=== PATIENT | male | born 1965 | race Hispanic/Latino ===

== ENCOUNTER 2017-07-20 22:08 | Emergency (ER) | payer MEDICARE | END 2017-07-20 23:49 | disposition home or self-care (01) | LOC: EDH 22:08 | DX: L97.529 Non-pressure chronic ulcer of other part of left foot with unspecified severity (principal); E08.621 Diabetes mellitus due to underlying condition with foot ulcer; Z88.0 Allergy status to penicillin; E78.5 Hyperlipidemia, unspecified; I10 Essential (primary) hypertension; Z72.0 Tobacco use; Z79.4 Long term (current) use of insulin | CPT/HCPCS: 73660 ==

== ENCOUNTER 2020-01-21 01:35 | Emergency (ER) | payer MEDICARE ==
[2020-01-21 01:52] LABS: APPEARANCE,URINE Cloudy (CLEAR); BILIRUBIN,URINE Negative (NEGATIVE); COLOR,URINE Yellow (YELLOW); GLUCOSE, URINE (UA) >=1000 mg/dL (NEGATIVE); KETONES,URINE Negative (NEGATIVE); LEUKOCYTE ESTERASE ,URINE Large (NEGATIVE); NITRATE,URINE Negative (NEGATIVE); OCCULT BLOOD,URINE Small (NEGATIVE); PROTEIN,URINE POS 2+ mg/dL (NEGATIVE); UROBILINOGEN,URINE 0.2 mg/dL (0.2-1.0)
[2020-01-21 02:05] LABS: BACTERIA,URINE Many /HPF (None Seen); WBC,URINE 26-50 /HPF (0-1)
[2020-01-21 02:06] LABS: SQUAMOUS EPITHELIAL CELL,UR 0-2 /HPF (0-2)
[2020-01-21] MEDS ORDERED: CLINDAMYCIN HCL 150 MG CAP ONE (02:24)
[2020-01-21] MEDS ORDERED: CEPHALEXIN 500 MG CAPSULE ONE (02:33)
== END 2020-01-21 03:22 | disposition home or self-care (01) ==
LOC: EDH 01:35
DX: S90.422A Blister (nonthermal), left great toe, initial encounter (principal); N39.0 Urinary tract infection, site not specified; E13.621 Other specified diabetes mellitus with foot ulcer; E78.5 Hyperlipidemia, unspecified; I10 Essential (primary) hypertension; Z72.0 Tobacco use; Z88.0 Allergy status to penicillin; X58.XXXA Exposure to other specified factors, initial encounter; Y93.89 Activity, other specified; Y92.89 Other specified places as the place of occurrence of the external cause; Y99.8 Other external cause status
CPT/HCPCS: 81001; 82948; 87077; 87088; 87186

== ENCOUNTER 2023-05-26 14:05 | Emergency (ER) | payer MEDICARE ==
[~2023-05-26] VITALS: Ht 172.7 cm; Wt 72.6 kg
[2023-05-26 16:31] LABS: BASOPHILS # (AUTO) 0.05 K/uL (0.00-0.20); BASOPHILS % (AUTO) 0.6 % (0.0-5.0); EOSINOPHILS # (AUTO) 0.19 K/uL (0.00-0.70); EOSINOPHILS % (AUTO) 2.1 % (0.0-8.0); HEMATOCRIT 34.5 % (42-54); IMMATURE GRANULOCYTE ABSOLUTE 0.07 K/uL (0-1); LYMPHOCYTES # (AUTO) 1.9 K/uL (1.0-4.8); LYMPHOCYTES % (AUTO) 21.6 % (21.0-51.0); MEAN CORPUSCULAR HEMOGLOBIN 29.6 pg (27.0-33.0); MEAN CORPUSCULAR HGB CONC 34.2 g/dL (32.0-36.0); MEAN CORPUSCULAR VOLUME 86.7 fL (79-99); MONOCYTES # (AUTO) 0.6 K/uL (0.1-1.0); MONOCYTES % (AUTO) 6.2 % (3.0-13.0); NEUTROPHILS # (AUTO) 6.1 K/uL (1.8-7.7); NEUTROPHILS % (AUTO) 68.7 % (40.0-77.0); PLATELET COUNT (AUTO) 294 K/uL (130-400); RED BLOOD CELL COUNT(AUTO) 3.98 MIL/uL (4.50-6.20); RED CELL DISTRIBUTION WIDTH 13.2 % (11.0-15.5); WHITE BLOOD COUNT (AUTO) 8.9 K/uL (4.8-10.8)
[2023-05-26 16:57] LABS: ALBUMIN 2.7 g/dL (3.5-5.0); CREATININE 2.3 mg/dL (0.5-1.5); POTASSIUM 4.8 mmol/L (3.5-5.1)
[2023-05-26 17:00] LABS: BILIRUBIN,TOTAL 0.2 mg/dL (0.2-1.0); TOTAL PROTEIN, SERUM 6.9 g/dL (6.0-8.3)
[2023-05-26] MEDS: CLINDAMYCIN IVPB 600MG/50ML 50 ML IV STA (17:46)
[2023-05-26] MEDS: INSULIN HUMULIN R 100 UNIT/ML 3ML IV ONE (17:47)
[2023-05-26] MEDS: 0.9%NACL 1000ML 1,000 ML IV ONE (17:47)
[2023-05-26] MEDS ORDERED: CLIN-141 PO (20:02)
[2023-05-26 20:22] VITALS: BP 132/75; PULSE 78; RESP 16; O2SAT 100
== END 2023-05-26 20:30 | disposition home or self-care (01) ==
LOC: EDH 14:05
DX: E11.621 Type 2 diabetes mellitus with foot ulcer (principal); L97.929 Non-pressure chronic ulcer of unspecified part of left lower leg with unspecified severity; E11.65 Type 2 diabetes mellitus with hyperglycemia; I12.9 Hypertensive chronic kidney disease with stage 1 through stage 4 chronic kidney disease, or unspecified chronic kidney disease; E11.22 Type 2 diabetes mellitus with diabetic chronic kidney disease; N18.9 Chronic kidney disease, unspecified; Z88.0 Allergy status to penicillin
CPT/HCPCS: 99284; 96365; 96375; 80053; 85025; 87040 ×2; 82948; 83605; 36415; 73630; J1815; J7030; J3490; 96361; 96374

== ENCOUNTER 2024-05-12 17:25 | Inpatient (IN) | payer MEDICARE ==
[~2024-05-12] VITALS: Ht 172.7 cm; Wt 69.7 kg
[~2024-05-12 17:25] MED LIST: CLIN-141 PO
--- NOTE | 2024-05-12 17:41 | EKG ---
[facility] Test Date: 2024-05-12 Test Time: 17:37:57 Pat Name: CHRISTEL LEONG Department: EDH Room: ED Gender: M Adult School Counselor: [id number] : 1965 Requested By: ARUN CAMPBELL Order Number: [id number] Reading MD: Lesley Fitzgerald Measurements Intervals [place] Rate: 78 P: 57 OR: 189 QRS: 50 QRSD: 82 T: 106 QT: 404 QTc: 461 Interpretive Statements Sinus rhythm Probable left atrial enlargement Probable LVH with secondary repol abnrm Anterior ST elevation, probably due to LVH No previous ECG available for comparison Electronically Signed On 05-13-2024 03:52:40 HEALTH NURSE by Lesley Fitzgerald Please click the below link to view image of tracing.
[2024-05-12 18:27] LABS: BASOPHILS # (AUTO) 0.06 K/uL (0.00-0.20); BASOPHILS % (AUTO) 0.8 % (0.0-5.0); EOSINOPHILS # (AUTO) 0.39 K/uL (0.00-0.70); HEMATOCRIT 29.7 % (42-54); IMMATURE GRANULOCYTE ABSOLUTE 0.03 K/uL (0-1); LYMPHOCYTES # (AUTO) 2.3 K/uL (1.0-4.8); MEAN CORPUSCULAR HGB CONC 32.7 g/dL (32.0-36.0); MONOCYTES # (AUTO) 0.7 K/uL (0.1-1.0); MONOCYTES % (AUTO) 9.5 % (3.0-13.0); NEUTROPHILS # (AUTO) 4.2 K/uL (1.8-7.7); NEUTROPHILS % (AUTO) 54.3 % (40.0-77.0); PLATELET COUNT (AUTO) 261 K/uL (130-400); RED BLOOD CELL COUNT(AUTO) 3.23 MIL/uL (4.50-6.20); RED CELL DISTRIBUTION WIDTH 13.4 % (11.0-15.5); WHITE BLOOD COUNT (AUTO) 7.8 K/uL (4.8-10.8)
[2024-05-12 18:37] LABS: CREATININE 3.2 mg/dL (0.5-1.3); INR <= 0.93 (0.85-1.15); POTASSIUM 4.4 mmol/L (3.5-5.1); PROTHROMBIN TIME 9.8 SEC (9.6-11.6)
[2024-05-12 18:38] LABS: PARTIAL THROMBOPLASTIN TIME 26.4 SEC (26.3-35.5)
--- NOTE | 2024-05-12 18:40 | HMCIMG ---
INDICATION: cp TECHNIQUE: CHEST 1VW COMPARISON: None FINDINGS AND IMPRESSION: Bilateral airspace consolidation suggesting vascular congestion/edema versus pneumonia. Cardiomegaly is seen Mild degenerative changes of the spine. The visualized upper abdomen appears unremarkable.
[2024-05-12 18:42] LABS: MAGNESIUM 2.3 mg/dL (1.80-2.40)
[2024-05-12 18:46] LABS: B-TYPE NATRIURETIC PEPTIDE 1210 pg/mL (0-100)
--- NOTE | 2024-05-12 19:46 | ERN ---
General Chief Complaint: Chest Pain Stated Complaint: CHEST PAIN Time Seen by MD: 17:26 Time Seen by Midlevel: 17:26 Source: patient History of Present Illness Initial Comments Patient is a 58-year-old male with a past medical history of hypertension, type 2 diabetes, and coronary artery disease presenting to the emergency department with chest pain and shortness for breath that have progressively worsened over the last three days. Patient reports having a three stents placed back in February of 2024 in [place]. He was a follow up with pricing analyst in three days. Today he reports an increase in shortness for breath. Denies any fever, chills, or any other symptoms at this time. Patient was previously taking Bumex but was told by the pricing analyst to stop this medication. Patient is not currently taking any diuretics. Allergies: Coded Allergies: Penicillins (Unverified Allergy, Unknown, 05/26/23) Home Meds Active Scripts Clindamycin HCl (Clindamycin HCl) 300 Mg Capsule, 1 CAP PO QID for 10 Days, #40 CAP 0 Refills Prov:NADIA PICKERING TIP PRINTER 05/26/23 Past Medical History Past Medical History: Diabetes-Type II, High Cholesterol, Heart Disease, Hyper tension Past Surgical History: Other Surgical History Other: HIP, BACK, AND L LEG SX, TESTICLE RT, LBKA, HEART STENTS ROS Dictation CONSTITUTIONAL: Negative except for HPI HEAD/FACE: Negative except for HPI EENT: Negative except for HPI RESPIRATORY: Negative except for HPI GASTROINTESTINAL/ABDOMINAL: Negative except for HPI GENITOURINARY: Negative except for HPI MUSCULOSKELETAL: Negative except for HPI INTEGUMENTARY: Negative except for HPI NEUROLOGICAL/PSYCH: Negative except for HPI HEMATOLOGIC/LYMPHATIC: Negative except for HPI All Systems Negative, Except as noted above. 13 point review of systems assessed and all negative except for above. Physical Exam Physical Exam Dictation Vital Signs reviewed General Appearance: Alert, oriented x 3, no acute distress, well developed, nourished. Head and Face: non-traumatic. Eyes: PERRL, pink conjunctivas, eyelid no trauma, anterior chamber with arcus senilis. Ears: Pinnas intact and no signs of trauma or erythema ear canals clear and no discharge TM no erythema Nose: No discharge, no bleeding. Oropharynx: Mouth normal, tongue pink, pharynx clear,no erythema, tonsils no exudates, no abscesses noted, mucous membrane moist Neck: Supple, non-tender, no thyromegaly, no masses, no JVD, no bruits Breast:Deferred Chest:No tenderness, no crepitus, no paradoxical movement, no retractions Lungs:Clear, well-ventilated, symmetric, no rales, no wheezing, no rhonchi, no stridor, good breath sounds bilaterally Heart: Regular rate, regular rhythm, no murmur, no gallops Vascular: 1+ pitting edema to right lower extremity Abdomen: Soft, positive bowel sounds, nondistended, no guarding, nontender, no rebound, no masses no hepatomegaly, no splenomegaly, no Barrientos's sign, no hernias. Rectal: Deferred Genital: Deferred Neurological: Normal speech, motor function intact, sensory function intact Musculoskeletal: Neck nontender, full range of motion, back nontender, full ra nge of motion, Extremities: Left BKA, Skin: Color pink, dry, no turgor, no rash, no lacerations, no abrasions, no contusions. Lymphatic: Deferred Results Laboratory and Microbiology Lab and Micro Result Laboratory Tests Test 05/12/24 18:05 05/12/24 18:20 White Blood Count 7.8 K/uL (4.8-10.8) Red Blood Count 3.23 MIL/uL (4.50-6.20) L Hemoglobin 9.7 g/dL (14.0-18.0) L Hematocrit 29.7 % (42-54) L Mean Corpuscular Volume 92.0 fL (79-99) Mean Corpuscular Hemoglobin 30.0 pg (27.0-33.0) Mean Corpuscular Hemoglobin Concent 32.7 g/dL (32.0-36.0) Red Cell Distribution Width 13.4 % (11.0-15.5) Platelet Count 261 K/uL (130-400) Mean Platelet Volume 10.0 fL (7.5-10.5) Immature Granulocyte % (Auto) 0.4 % (0-1) Neutrophils (%) (Auto) 54.3 % (40.0-77.0) Lymphocytes (%) (Auto) 30.0 % (21.0-51.0) Monocytes (%) (Auto) 9.5 % (3.0-13.0) Eosinophils (%) (Auto) 5.0 % (0.0-8.0) Basophils (%) (Auto) 0.8 % (0.0-5.0) Neutrophils # (Auto) 4.2 K/uL (1.8-7.7) Lymphocytes # (Auto) 2.3 K/uL (1.0-4.8) Monocytes # (Auto) 0.7 K/uL (0.1-1.0) Eosinophils # (Auto) 0.39 K/uL (0.00-0.70) Basophils # (Auto) 0.06 K/uL (0.00-0.20) Absolute Immature Granulocyte (auto 0.03 K/uL (0-1) Nucleated Red Blood Cells 0.0 % (0.0-0.19) Prothrombin Time 9.8 SEC (9.6-11.6) Prothromb Time International Ratio <= 0.93 (0.85-1.15) Activated Partial Thromboplast Time 26.4 SEC (26.3-35.5) Sodium Level 139 mmol/L (136-145) Potassium Level 4.4 mmol/L (3.5-5.1) Chloride Level 107 mmol/L (101-111) Carbon Dioxide Level 26 mmol/L (21-32) Blood Urea Nitrogen 42 mg/dL (7-18) H Creatinine 3.2 mg/dL (0.5-1.3) H Glomerular Filtration Rate Calc 21 mL/min (>90) Random Glucose 169 mg/dL (70-105) H Total Calcium 8.3 mg/dL (8.5-10.1) L Magnesium Level 2.30 mg/dL (1.80-2.40) Total Creatine Kinase 216 U/L (21-232) Troponin I High Sensitivity 36 ng/L (4-75) B-Type Natriuretic Peptide 1210 pg/mL (0-100) H Troponin I < 0.05 ng/mL (0.00-0.05) Labs Reviewed?: Yes MDM MDM: Differential diagnosis: ACS, pulmonary edema, CHF exacerbation Rationale: Tests considered and ordered secondary to shared decision making include: Previous outside records reviewed: Old ER visits. Risk of complication and/or morbidity or mortality of patient management: None Medications-Per medication reconciliation Need for hospitalization: Patient does meet criteria for hospitalization. Need for emergency major/minor surgery: No There are no social concerns with this patient. Prescription drug management Prescriptions will include symptomatic care Patient's prior external medical records from other ER visits were reviewed by me as indicated. Prior testing and results from previous visits were reviewed. Prior tests were taken into account with medical decision making and resource utilization, independent historian/historians were used to obtain complete medical history. I independently interpreted the test that were performed, results were reviewed by me and considered findings on radiology if ordered. Medical management and examination interpretation discussions were had by me wit h other qualified healthcare professionals as indicated for the patient's care. ED Course Orders Procedure Category Date Status Time 12 Lead Ekg Tracing- EKG 05/12/24 Complete Technical 17:33 B-Type Natriuretic LAB 05/12/24 Complete Peptide 17:33 Cbc With Differential LAB 05/12/24 Complete 17:33 Basic Metabolic Panel LAB 05/12/24 Complete 17:33 Magnesium LAB 05/12/24 Complete 17:33 Troponin I High LAB 05/12/24 Complete Sensitivity 17:33 Troponin Poc Order LAB 05/12/24 Complete Only 17:33 Pt And Ptt LAB 05/12/24 Complete 17:33 Chest 1vw RAD 05/12/24 Resulted 17:33 Creatine Kinase, Total LAB 05/12/24 Complete 17:33 Furosemide 40mg Vial PHA 05/12/24 In Process (Lasix 40mg Vial) 20:00 Current Medications Medications (Trade) Dose Ordered Sig/[place] Route PRN Reason Start Time Stop Time Status Last Admin Dose Admin Furosemide (LASix 40MG VIAL) 40 mg ONCE ONCE IV 05/12/24 20:00 05/12/24 20:01 Vital Signs Date Time Temp Pulse Resp B/P (MAP) Pulse Ox O2 Delivery O2 Flow Rate FiO2 05/12/24 19:16 80 18 177/90 96 Room Air* 0 21 05/12/24 17:36 98.2 78 16 172/87 98 Room Air 0 DX & DISP Disposition: Inpatient Decision to Admit Date: May 12, 2024 Decision to Admit Time: 19:46 Departure Impression: Primary Impression: CHF exacerbation Condition: Stable Referrals: NONE (PCP) Time of Disposition: 19:46 I have reviewed the case, and I agree with, Diagnosis and Plan I performed the substantive portion of the visit. I have reviewed and personally made and approve the management plan that is documented in the note by myself or the ALIZA. I acknowledge for responsibility for the patient's management plan. ARUN CAMPBELL May 12, 2024 19:46
[2024-05-12] MEDS: NITROGLYCERIN 1GM OINT 1 INCH/1GM TD ONE (20:42)
[2024-05-12] MEDS: morPHINE 2 MG SYG IVP ONE (20:42)
[2024-05-12] MEDS: furoSEMIDE 40MG VIAL IV ONE (20:42)
[2024-05-12] MEDS ORDERED: PoTASSium chloRIDE 10MEQ/100ML 100 ML IV PRN (21:00)
[2024-05-12] MEDS: INSULIN humuLIN R 100 UNIT/ML 3ML SQ SCH (21:00)
[2024-05-12] MEDS ORDERED: GLUCAGON 1MG KIT 1 MG ML IM PRN (21:00)
[2024-05-12] MEDS ORDERED: PoTASSium chl 10% ELIXIR 20MEQ 20 MEQ/15 ML UDCUP PO PRN (21:00)
[2024-05-12] MEDS: NITROGLYCERIN 1GM OINT 1 INCH/1GM TD SCH (21:00)
[2024-05-12] MEDS ORDERED: PoTASSium chloRIDE 20MEQ ER 20 MEQ ERTAB PO PRN (21:00)
[2024-05-12] MEDS ORDERED: ondanSETRON 4MG INJ IV PRN (21:00)
[2024-05-12] MEDS ORDERED: MAGNESIUM 2GM PREMIX 50ML 50 ML IV PRN (21:00)
[2024-05-12] MEDS ORDERED: acetaMINOPHEN 325 MG TAB PO PRN (21:00)
--- NOTE | 2024-05-12 21:10 | HP ---
[facility] Date of Service: May 12, 2024 Time of Service: 20:46 PCP: HISTORY OF PRESENT ILLNESS: This is a 58-year-old male with past medical history of hypertension, type 2 diabetes, coronary artery disease with cardiac stent x3 and hyperlipidemia who presents to the ED for complaints of chest pain and shortness of breath. Patient reports he has been having shortness of breath for the past one week and he has been sleeping at night in the recliner because he feels drowning he lies down in bed and reports he sometimes woke up very short of breath. Patient states that he started having on and off midsternal chest pain three days ago and he is taking Nitrostat sublingual. Today he was not able to take all his medication because he has not feeling good he said so he decided to come to the ED for evaluation. Patient states he had a heart attack last February of 2024 and he had cardiac stent x3 done @ [facility] in [place].Patient reports he has not seen any manager it security here. Patient states he drinks 10 bottled water (500 ml ) per day Patient also states he drinks 2 beer per day and uses Marijuana for pain control and last use was 5 days ago he said. Seen and examined patient in the ER awake alert and coherent appears uncomfortable continue to complain of chest pain 8/10 pain level and shortness of breaths. Patient denies fever, chills, cough, palpitation, nausea, vomiting and diarrhea. Latest vital signs temperature 98.2, heart rate 80, blood pressure 181/86 saturation 96% on room air. Labs hemoglobin 9.7, hematocrit 29.7 platelet count 261. BUN 42, creatinine 3.2, GFR 21 glucose 169 total calcium 8.3 potassium 2.3 total CK 216 troponin less than 0.05 troponin high sens 36. Chest x-ray result revealed bilateral airspace consolidation suggesting vascular congestion/edema versus pneumonia. Cardiomegaly is seen. Mild degenerative changes of the spine. The visualized upper abdomen appears unremarkable. ECG result revealed sinus rhythm heart rate 78 with probable left atrial enlargement. Probable left ventricular hypertrophy with secondary repolarization abnormalities. Anterior ST elevation probably due to LVH. While in the ER patient received Lasix 40 mg IV. We will admit patient for further medical management. Addendum : ER primary nurse notified the undersigned patient is having severe chest pain and ECG were taken and no change from initial EKG done in the ER, manager it security and notified regarding patient condition and patient qwill be started on Heparin and Nitroglycerin drip. came and evaluated the patient and will continue to monitor patient at this time.Will upgrade patient to ICU and consult critical care as well, REVIEW OF SYSTEMS CONSTITUTIONAL: Denies fevers, chills, or night sweats. No unintentional weight loss reported. NEUROLOGICAL: Denies headache, amaurosis fugax, motor weakness, sensory deficit, vertigo/spinning sensation, gait abnormalities, or tremors. ENT: No hearing loss, otalgia, otorrhea, rhinitis, rhinorrhea, hoarseness, or sore throat. CARDIOVASCULAR: Positive chest pain, orthopnea and paroxysmal nocturnal dyspnea Denies palpitations, life-threatening arrhythmias, claudication. PULMONARY: Positive shortness of breaths Denies cough, phlegm/sputum, hemoptysis, pleuritic chest pain. SLEEP: Denies morning headaches, daytime somnolence or napping. Denies difficulty falling asleep, staying asleep, waking from sleep. Denies knowledge of snoring. GASTROINTESTINAL: Denies any type of dysphagia to either liquids or solids. Denies nausea, vomiting, pyrosis, early satiety, abdominal pain, diarrhea, constipation, or changes in stool consistency or caliber. Denies coffee-ground emesis, hematemesis, hematochezia, or melanotic stools. GENITOURINARY: Denies frequency, urgency, nocturia, hematuria or incontinence (Storage/Irritative symptoms.) Low urinary stream, straining to void, urinary intermittency or hesitancy, splitting of the voiding stream, terminal dribbling. ENDOCRINOLOGIC: Denies polyuria, polydipsia, polyphagia or heat/cold intolerances. HEMATOLOGIC: Denies thrombophilia/previous clots, or coagulopathy/bleeding dis orders. ONCOLOGIC: Denies personal history of malignancy. DERMATOLOGIC: Denies rashes or pruritus. PSYCHIATRIC: Denies any suicidal or homicidal ideation. Denies hallucinations. PAST MEDICAL HISTORY: [ hypertension, type 2 diabetes, coronary artery disease and hyperlipidemia ] PAST SURGICAL HISTORY: [ Cardiac stent x3 right testicle surgery, back surgery, left femur surgery and left BKA] PAST SOCIAL HISTORY: [ Patient lives with . Patient denies cigarette smoking and cocaine use. Patient admits to drinking two beers per day and occasional use of marijuana] FAMILY HISTORY: [ Noncontributory ] Coded Allergies: Penicillins (Unverified Allergy, Unknown, 05/26/23) PHYSICAL EXAM GENERAL APPEARANCE: The patient is awake, alert, and oriented, in no acute cardiopulmonary distress. NEUROLOGICAL: Cranial nerves II-XII grossly intact. Motor is 5/5 in bilateral upper and lower extremities proximal to distal. No sensory deficits. HEENT: Face is symmetric. Pupils are equal and reactive. Extraocular movements are intact. NECK: Supple. No JVD. No thyromegaly. No submental, submandibular, pre- /postauricular, occipital or supraclavicular lymphadenopathy. CHEST: Normal chest expansion. No Telemetry. LUNGS: Absence of any rales, rhonchi or any wheezing. CARDIOVASCULAR: Regular. S1 and S2 normal. No appreciable rubs, murmurs or gallops. ABDOMEN: Soft, nontender, and nondistended. There is no rebound, voluntary guarding, or rigidity. : Deferred. No Givens. EXTREMITIES: Trace edema to bilateral lower extremities SKIN: No skin breakdown. Vital Sign (Last 24 Hours) 05/12/24 05/12/24 17:36 19:16 Temp 98.2 Pulse 80 Resp 18 B/P (MAP) 177/90 Pulse Ox 96 O2 Delivery Room Air* O2 Flow Rate 0 FiO2 21 LABS: Laboratory: Test 05/12/24 18:20 05/12/24 18:05 Range/Units Troponin I < 0.05 0.00-0.05 ng/mL White Blood Count 7.8 4.8-10.8 K/uL Red Blood Count 3.23 L 4.50-6.20 MIL/uL Hemoglobin 9.7 L 14.0-18.0 g/dL Hematocrit 29.7 L 42-54 % Mean Corpuscular Volume 92.0 79-99 fL Mean Corpuscular Hemoglobin 30.0 27.0-33.0 pg Mean Corpuscular Hemoglobin Concent 32.7 32.0-36.0 g/dL Red Cell Distribution Width 13.4 11.0-15.5 % Platelet Count 261 130-400 K/uL Mean Platelet Volume 10.0 7.5-10.5 fL Immature Granulocyte % (Auto) 0.4 0-1 % Neutrophils (%) (Auto) 54.3 40.0-77.0 % Lymphocytes (%) (Auto) 30.0 21.0-51.0 % Monocytes (%) (Auto) 9.5 3.0-13.0 % Eosinophils (%) (Auto) 5.0 0.0-8.0 % Basophils (%) (Auto) 0.8 0.0-5.0 % Neutrophils # (Auto) 4.2 1.8-7.7 K/uL Lymphocytes # (Auto) 2.3 1.0-4.8 K/uL Monocytes # (Auto) 0.7 0.1-1.0 K/uL Eosinophils # (Auto) 0.39 0.00-0.70 K/uL Basophils # (Auto) 0.06 0.00-0.20 K/uL Absolute Immature Granulocyte (auto 0.03 0-1 K/uL Nucleated Red Blood Cells 0.0 0.0-0.19 % Prothrombin Time 9.8 9.6-11.6 SEC Prothromb Time International Ratio <= 0.93 0.85-1.15 Activated Partial Thromboplast Time 26.4 26.3-35.5 SEC Sodium Level 139 136-145 mmol/L Potassium Level 4.4 3.5-5.1 mmol/L Chloride Level 107 101-111 mmol/L Carbon Dioxide Level 26 21-32 mmol/L Blood Urea Nitrogen 42 H 7-18 mg/dL Creatinine 3.2 H 0.5-1.3 mg/dL Glomerular Filtration Rate Calc 21 >90 mL/min Random Glucose 169 H 70-105 mg/dL Total Calcium 8.3 L 8.5-10.1 mg/dL Magnesium Level 2.30 1.80-2.40 mg/dL Total Creatine Kinase 216 21-232 U/L Troponin I High Sensitivity 36 4-75 ng/L B-Type Natriuretic Peptide 1210 H 0-100 pg/mL DIAGNOSTICS / RADIOLOGY: [ ] ASSESSMENT: Unstable angina POA Acute CHF exacerbation POA Uncontrolled hypertension POA Uncontrolled diabetes POA Acute kidney injury on chronic kidney disease POA Acute anemia on CKD POA Coronary artery disease with cardiac stent x3 POA Hyperlipidemia POA History of Left BKA POA History of back surgery POA PLAN: We will admit patient in PCCU We will start patient on healthy and non dialysis renal diet We will start patient on aspirin 81 mg p.o. daily We will start on atorvastatin 40 mg p.o. daily We will start patient on heparin 5000 subQ b.i.d. for DVT prophylaxis We will start on Famotidine 20 mg p.o. q.48h for GI prophylaxis We will replace electrolytes as needed per protocol We will start on insulin sliding scale AC & HS with hypoglycemia protocol We will add prn medication for fever,pain,cough ,nausea and vomiting We will reconcile home meds once medlist available We will trend troponin Q 6 x 3 We will obtain echocardiogram We will seek Cardiology consultation We will seek Nephrology consultation We will request labs in am Further orders to follow depending on above results Case discussed with attending physician and came up with above treatment and plan of care. ADVANCED CARE PLANNING 1. Which of the following were discussed? Hospice Care - No Therapeutic options - Yes Advance Directives - No Other discussions - 2. Discussed with who? Patient and Melissa Ybarra 3. Voluntary nature of this service was explained to the patient? Yes 4. Amount of time spent - 25 5. Reviewed by Physician? (if this service was performed by NPP) Yes Patient seen and examined by me. Agree with note by OFFICER CAPTAIN SEE ADDITIONAL ORDERS PER CHART DISCUSSED WITH NURSING STAFF MARIBEL REDDP May 12, 2024 21:10
[2024-05-12] MEDS: HEParin 5,000 UNIT VIAL SQ SCH (22:15)
[2024-05-12] MEDS: LAbetaLOL 20MG SYG IV ONE (22:21)
--- NOTE | 2024-05-12 23:26 | NUR ---
PT CARE ASSUMED AT THIS TIME
[2024-05-12] MEDS: hydroMORPHone 0.5 MG SYG (0.5MG/0.5ML) IVP ONE (23:46)
[2024-05-13] VITALS (15 sets, daily range): BP systolic 143–170; BP diastolic 82–103; PULSE 71–77; RESP 9–19; TEMP 98.2; O2SAT 100
[2024-05-13] MEDS: NITROGLYCERIN 1GM OINT 1 INCH/1GM TD SCH (01:30)
--- NOTE | 2024-05-13 03:30 | NUR ---
DIRECTOR CLIENT PAGED AT THIS TIME. PENDING CALL BACK.
--- NOTE | 2024-05-13 03:45 | NUR ---
MACARIO REDD MADE AWARE OF ONSET OF CHEST PAIN AT THIS TIME. EKG TAKEN AT 0329 PROVIDED TO MACARIO REDD. ORDERS GIVEN. TRAMAINE NOTIFIED DR. PITTS AT THIS TIME.
--- NOTE | 2024-05-13 03:51 | NUR ---
SPOKE TO DR. PITTS AT THIS TIME. EKG INFORMATION PROVIDED. PER DR. PITTS NO STEMI SHOWN IN EKG. PT SHOWS NO SIGNS OF DISTRESS AT THIS TIME. PT A&OX4. DENIES SOB. PT REPORTS CHEST PAIN 11/04. REFER TO CHART FOR VS. WAITING FOR DR. PITTS TO ASSESS PT AT BEDSIDE.
[2024-05-13] MEDS: HEParin 25,000 UNITS/250ML D5W 250 ML IV SCH (04:10)
--- NOTE | 2024-05-13 04:10 | NUR ---
DR. PITTS AT BEDSIDE AT THIS TIME. ORDERS GIVEN AND TRANSCRIBED.
[2024-05-13] MEDS: NITROGLYCERIN 50MG/D5W 250ML 250 BOT IV SCH (04:11)
[2024-05-13] MEDS: HEParin 5,000 UNIT VIAL IV ONE (04:11)
[2024-05-13 04:13] LABS: ALBUMIN 2.6 g/dL (3.5-5.0); BILIRUBIN,TOTAL 0.2 mg/dL (0.2-1.0); CREATININE 3.3 mg/dL (0.5-1.3); POTASSIUM 4.1 mmol/L (3.5-5.1); THYROID STIMULATING HORMONE 2.56 uIU/mL (0.36-3.74); TOTAL PROTEIN, SERUM 6.1 g/dL (6.0-8.3)
[2024-05-13] MEDS: cloPIDOgrel 300MG TAB PO ONE (04:38)
--- NOTE | 2024-05-13 04:46 | NUR ---
MACARIO REDD PAGED AT THIS TIME. PENDING CALL BACK.
--- NOTE | 2024-05-13 05:46 | NUR ---
PER CHARGE, ORDERS WERE GIVEN IN PERSON WERE OBTAINED FOR UPGRADE TO ICU AT THIS TIME
--- NOTE | 2024-05-13 05:50 | NUR ---
KRYSTEN SORTO PAGED AT THIS TIME FOR CRITICAL CARE CONSULT
--- NOTE | 2024-05-13 05:54 | NUR ---
[facility] PROFESSIONAL GOLF TOURNAMENT PLAYER NOTIFIED ABOUT CRITICAL CARE CONSULT AT THIS TIME. PER KRYSTEN PROFESSIONAL GOLF TOURNAMENT PLAYER CRITICAL CARE CONSULT INFORMATION WILL BE RELAYED TO DAYSHIFT CRITICAL CARE PROVIDER.
--- NOTE | 2024-05-13 06:23 | NUR ---
PER DR. PITTS VERBAL ORDER GIVEN FOR PAIN MEDICATION AT THIS TIME.
--- NOTE | 2024-05-13 06:35 | EKG ---
[facility] Test Date: 2024-05-13 Test Time: 03:29:59 Pat Name: CHRISTEL LEONG Department: EDHIP Room: ED 02 Gender: M Folder And Notcher: [id number] : 1965 Requested By: MARIBEL REDD Order Number: [id number] Reading MD: Lesley Fitzgerald Measurements Intervals [place] Rate: 76 P: 54 OR: 181 QRS: 24 QRSD: 78 T: 102 QT: 420 QTc: 473 Interpretive Statements Sinus rhythm Probable left atrial enlargement ST and T wave changes could represent ischemia Electronically Signed On 05-13-2024 11:55:27 BALANCE STAFF INSPECTOR by Lesley Fitzgerald Please click the below link to view image of tracing.
[2024-05-13] MEDS: morPHINE 2 MG SYG IVP ONE (06:46)
--- NOTE | 2024-05-13 07:14 | NUR ---
REPORT GIVEN TO YAS GERARDO AT THIS TIME
[2024-05-13 07:22] LABS: BASOPHILS # (AUTO) 0.06 K/uL (0.00-0.20); BASOPHILS % (AUTO) 0.7 % (0.0-5.0); EOSINOPHILS # (AUTO) 0.39 K/uL (0.00-0.70); EOSINOPHILS % (AUTO) 4.3 % (0.0-8.0); HEMATOCRIT 29.1 % (42-54); IMMATURE GRANULOCYTE ABSOLUTE 0.03 K/uL (0-1); LYMPHOCYTES # (AUTO) 3.2 K/uL (1.0-4.8); MEAN CORPUSCULAR HEMOGLOBIN 30.2 pg (27.0-33.0); MEAN CORPUSCULAR HGB CONC 33.3 g/dL (32.0-36.0); MEAN CORPUSCULAR VOLUME 90.7 fL (79-99); MONOCYTES # (AUTO) 0.8 K/uL (0.1-1.0); MONOCYTES % (AUTO) 8.4 % (3.0-13.0); NEUTROPHILS # (AUTO) 4.6 K/uL (1.8-7.7); NEUTROPHILS % (AUTO) 51.3 % (40.0-77.0); PLATELET COUNT (AUTO) 234 K/uL (130-400); RED BLOOD CELL COUNT(AUTO) 3.21 MIL/uL (4.50-6.20); RED CELL DISTRIBUTION WIDTH 13.6 % (11.0-15.5)
[2024-05-13] MEDS: FAMOTIDINE 20MG TAB PO SCH (08:04)
[2024-05-13] MEDS: ASPIRIN 81 MG EC TAB PO SCH (08:04)
--- NOTE | 2024-05-13 08:52 | CONS ---
[facility] CONSULTATION NOTE Date Patient Seen: May 13, 2024 Time of Visit: 08:52 Supervising Physician: Saul Courtney MD Reason for Consultation: [[facility] Primary Care Physician: none Outpatient Specialists: Inpatient Consults: [facility], Cardiology DR Fitzgerald Attending: Enoc Massey MD PROBLEM LIST: Acute on chronic stage II diastolic dysfunction with LVEF of 45-50% POA Multifocal bacterial pneumonia, POA Unstable angina requiring nitroglycerin drip JOSEP on CKD stage 3, POA Chronic Normocytic anemia, POA PVD status post left BKA Hypertension Hyperglycemia in the presence of Type 2 diabetes mellitus A1C 8.0 Hyperlipidemia CAD status post stent placement x3 HPI: This is a chronically ill 58-year-old male with a past medical history of hypertension, type 2 diabetes mellitus, coronary artery disease with cardiac stents x3, hyperlipidemia, severe PVD status post BKA who presented to the emergency department for evaluation of shortness of breaths x1 week. Patient also reported chest pain off and on x3 days in which he asked to take nitroglycerin tablets sublingual with some relief. Patient reports he has concern due to recent NC in February of 2024 and he has had cardiac stent x3 at [facility]. Patient admits to drinking two beers today and occasional marijuana use for pain control. He was admitted by the [facility] [facility] team to the ICU with nitroglycerin drip and we are consulted for critical care management. On assessment patient is awake alert and oriented x3. Reports chest pain has improved currently on nitroglycerin and heparin drip. Blood pressure 166/72 heart rate in the 80s respiratory rate of 20 saturating 96% on room air and afebrile. Patient was given Lasix 40 mg IV on arrival to ED add morphine for pain with relief of chest pain. On laboratory H&H is 9.7/29.1, chemistry with a BUN of 43 creatinine of 3.3 and GFR of 21 glucose 107 mg/dL albumin of 2.6 troponins has been negative x4 LDL cholesterol 128. CT of the chest shows small bilateral pleural effusion seen. Multifocal bilateral patchy ground-glass and airspace consolidation, more pronounced in the bilateral lower lobes consistent with multifocal pneumonia. Bilateral lower extremities negative for DVT. Renal ultrasound had no hydronephrosis. LVEF is 45-50%.Stage II, diastolic dysfunction on 2 D echo. We will continue critical care management and follow cardiology recommendations. PAST MEDICAL HX: see above PAST SURGICAL HX: noncontributory SOCIAL HISTORY: No tobacco, ETOH, or illicit drug use Coded Allergies: Penicillins (Unverified Allergy, Unknown, 05/26/23) REVIEW OF SYSTEMS: 12 point ROS reviewed with patient. Pertinent positives mentioned above. Otherwise negative. PHYSICAL EXAM: GENERAL: alert, weak, awake oriented x 3 HEENT: EOMI, Sclera non icteric, moist mucosa NECK: Supple, no JVD, trachea midline LUNGS: Clear breath sounds bilaterally. No wheezes HEART: Regular rate and rhythm. Normal S1 and S2, without murmurs ABD: Abdomen soft, nontender. Bowel sounds present EXT: No clubbing cyanosis or edema NEURO: Alert and oriented to person, follows commands Vital Signs (last 8hr) Date Time Temp Pulse Resp B/P (MAP) Pulse Ox O2 Delivery O2 Flow Rate FiO2 05/13/24 07:35 79 16 168/94 99 Room Air* 0 21 05/13/24 06:36 78 12 164/89 100 Room Air* 0 21 05/13/24 05:10 84 12 152/85 100 Nasal Cannula* 2 05/13/24 04:15 78 12 153/79 100 Nasal Cannula* 2 05/13/24 04:11 153/79 05/13/24 03:51 76 12 143/78 100 Nasal Cannula* 2 05/13/24 03:30 75 14 153/85 100 Nasal Cannula* 2 05/13/24 01:45 72 13 141/82 99 Nasal Cannula* 2 28 LABS: Hematology Labs: Test 05/13/24 06:55 Range/Units White Blood Count 9.0 4.8-10.8 K/uL Red Blood Count 3.21 L 4.50-6.20 MIL/uL Hemoglobin 9.7 L 14.0-18.0 g/dL Hematocrit 29.1 L 42-54 % Mean Corpuscular Volume 90.7 79-99 fL Mean Corpuscular Hemoglobin 30.2 27.0-33.0 pg Mean Corpuscular Hemoglobin Concent 33.3 32.0-36.0 g/dL Red Cell Distribution Width 13.6 11.0-15.5 % Platelet Count 234 130-400 K/uL Mean Platelet Volume 10.5 7.5-10.5 fL Immature Granulocyte % (Auto) 0.3 0-1 % Neutrophils (%) (Auto) 51.3 40.0-77.0 % Lymphocytes (%) (Auto) 35.0 21.0-51.0 % Monocytes (%) (Auto) 8.4 3.0-13.0 % Eosinophils (%) (Auto) 4.3 0.0-8.0 % Basophils (%) (Auto) 0.7 0.0-5.0 % Neutrophils # (Auto) 4.6 1.8-7.7 K/uL Lymphocytes # (Auto) 3.2 1.0-4.8 K/uL Monocytes # (Auto) 0.8 0.1-1.0 K/uL Eosinophils # (Auto) 0.39 0.00-0.70 K/uL Basophils # (Auto) 0.06 0.00-0.20 K/uL Absolute Immature Granulocyte (auto 0.03 0-1 K/uL Nucleated Red Blood Cells 0.0 0.0-0.19 % Chemistry Labs: Test 05/13/24 08:00 05/13/24 06:55 05/13/24 03:39 05/12/24 18:20 Range/Units Whole Blood Glucose 100 70-110 MG/DL Hemoglobin A1c 8.0 H 4.0-6.0 % Estimated Average Glucose (eAG) 183 H 70-126 mg/dL Troponin I High Sensitivity 42 4-75 ng/L Sodium Level 139 136-145 mmol/L Potassium Level 4.1 3.5-5.1 mmol/L Chloride Level 107 101-111 mmol/L Carbon Dioxide Level 23 21-32 mmol/L Blood Urea Nitrogen 43 H 7-18 mg/dL Creatinine 3.3 H 0.5-1.3 mg/dL Glomerular Filtration Rate Calc 21 >90 mL/min Random Glucose 107 H 70-105 mg/dL Total Calcium 8.1 L 8.5-10.1 mg/dL Total Bilirubin 0.2 0.2-1.0 mg/dL Aspartate Amino Transf (AST/SGOT) 21 10-37 U/L Alanine Aminotransferase (ALT/SGPT) 18 12-78 U/L Alkaline Phosphatase 90 50-136 U/L Total Protein 6.1 6.0-8.3 g/dL Albumin 2.6 L 3.5-5.0 g/dL Triglycerides Level 160 30-200 mg/dL Cholesterol Level 200 <200 mg/dL LDL Cholesterol 128 H 0-99 mg/dL HDL Cholesterol 51 29-71 mg/dL Thyroid Stimulating Hormone (TSH) 2.56 0.36-3.74 uIU/mL Troponin I < 0.05 0.00-0.05 ng/mL Test 05/12/24 18:05 Range/Units Magnesium Level 2.30 1.80-2.40 mg/dL Total Creatine Kinase 216 21-232 U/L B-Type Natriuretic Peptide 1210 H 0-100 pg/mL Coagulation Labs: Test 05/12/24 18:05 Range/Units Prothrombin Time 9.8 9.6-11.6 SEC Prothromb Time International Ratio <= 0.93 0.85-1.15 Activated Partial Thromboplast Time 26.4 26.3-35.5 SEC DIAGNOSTICS / RADIOLOGY RESULTS: [ ] PLAN Acute on chronic stage II diastolic dysfunction with LVEF of 45-50% POA -add diuresing with Lasix 20 mg IV q.12 hours -I&O Q 1 hour -fluid restriction of 1500 -daily weights Multifocal bacterial pneumonia, POA -empiric coverage for cap-cefepime and dioxide -MRSA swab, influenza swab and COVID-19 swab. -sputum culture Unstable angina -nitroglycerin drip -HEART Score 5 points (Moderate Score) -heparin drip -aspirin, Plavix, statin, beta don JOSEP on CKD stage 3, POA -avoid nephrotoxic agents Chronic Normocytic anemia, POA -likely from CKD -monitor H&H -monitor for bleeding PVD status post left BKA -continue antiplatelet Hypertension -nitro drip, p.r.n. hydralazine Hyperglycemia in the presence of Type 2 diabetes mellitus A1C 8.0 -ISS Hyperlipidemia -continue atorvastatin CAD status post stent placement x3 -continue Plavix and aspirin NEURO: Minimize central acting medications as possible. Fall Precautions. Well lighted room through the day and minimize interruptions through the night to prevent acute delirium. PULMONARY: Supplemental 02 as needed Titrate Fio2 to keep Spo2 > or = 90% DuoNebs and CPT as needed IS hourly while awake for pulmonary hygiene Out of bed to chair as tolerated CARDIOVASCULAR: Follow hemodynamics. Titrate vasopressor to keep MAP >65 or systolic blood pressure >95mmHg Drips: Heparin Nitroglycerin LINES: PIV GI & NUTRITION: Continue nutritional support Aspirations precautions Prokinetic agents and laxatives as needed Heart has been diet KIDNEYS & ELECTROLYTES: Strict monitoring of intake and output Daily weights Avoid nephrotoxic agents Monitor electrolytes and replace as needed Goal urine output of 30mL/hr or 0.5mL/kg/hr Urine output: [ ] Fluid Balance: [ ] ENDOCRINE: Maintain blood glucose between 100-180 at all times. Insulin sliding scale for blood glucose management ISS INFECTIOUS DISEASE: Trend temperature. Kenny-culture if febrile. Micro: [ ] Respiratory culture Antibiotics: [ ] Cefepime and doxy HEMATOLOGY & COAGULATION: Monitor H&H. Keep Hgb > 7 Transfuse 1 unit of PRBC for Hgb < 7 Transfuse 1 pack of platelets of platelets < 20, 000 Watch for any signs and symptoms of bleeding SKIN: Pressure ulcer prevention per facility protocol Rehab: PT/OT Prophylaxis: GI: Protonix DVT: Heparin drip Code Status: Full Resuscitation Disposition: ICU Other: Total patient care time exceeds 35 minutes excluding all procedures. Case was discussed and seen with my supervising physician. The above plan was formulated and agreed upon. EULA [facility] May 13, 2024 08:52
[2024-05-13] MEDS ORDERED: DiphenhydrAMINE HCL 50 MG/ML VIAL IV PRN (09:00)
[2024-05-13] MEDS: DOXYCYCLINE 100MG+NS 250ML 250 ML IV SCH (09:54)
--- NOTE | 2024-05-13 10:07 | HMCIMG ---
CT CHEST W/O CONTRAST HISTORY: chest pain TECHNIQUE: CT CHEST W/O CONTRAST. Coronal and sagittal reformats were obtained. CT was performed with one or more of the following dose reduction techniques: Automated exposure control, adjustment of the mA and/or kV according to the patient's size, or use of the iterative reconstruction technique. FINDINGS: The noncontrast nature this study limits evaluation of the mediastinal structures. Small bilateral pleural effusions seen. Multifocal bilateral patchy groundglass and airspace consolidation, more pronounced in the bilateral lower lobes, consistent with multifocal pneumonia. There is mild cardiomegaly. Mildly prominent mediastinal lymph nodes likely reactive. There is atherosclerotic changes of the aorta and coronary arteries. There is no acute findings in the visualized upper abdomen. Degenerative changes of the spine are noted. IMPRESSION: Small bilateral pleural effusions seen. Multifocal bilateral patchy groundglass and airspace consolidation, more pronounced in the bilateral lower lobes, consistent with multifocal pneumonia.
[2024-05-13] MEDS: SODIUM CHLORIDE 3% FOR INHALATION 4 ML/AMP VIAL.NEB IH ONE (10:17)
[2024-05-13 10:19] LABS: ALBUMIN 2.7 g/dL (3.5-5.0); BILIRUBIN,DIRECT 0.1 mg/dL (0.0-0.3); BILIRUBIN,TOTAL 0.3 mg/dL (0.2-1.0); TOTAL PROTEIN, SERUM 6.1 g/dL (6.0-8.3)
--- NOTE | 2024-05-13 10:19 | PN ---
[facility] PROGRESS NOTE Date of Service: May 13, 2024 Time of Service: 10:03 SUBJECTIVE: [ ] 58-year-old male with past medical history of essential hypertension, diabetes mellitus type 2, CAD with cardiac stent x3, hyperlipidemia, CHF, anemia of chronic disease and CKD with a admitted yesterday evening in to the PCCU with diagnosis of unstable angina, acute diastolic heart failure. Patient originally presented with chest pain and shortness of breath with and without exertion, orthopnea for approximately one week. Nephrology and cardiology teams consulted. 2D echo and CT chest are pending. Today at bedside evaluation patient's blood pressure continues to be elevated with latest at 165/70, the rest of his vitals are stable, he was satting 98% on room air. CBC is stable with H&H at 9.7/29.1, BUN is 43, creatinine 3.3, hemoglobin A1c 8, calcium 8.1, last night BNP is 1210. We are still pending CT chest and 2D echo. Continue strict intake and output, daily weights, fluid restriction 1.2 L/daily. Continue dual antiplatelet therapy with aspirin, Plavix. Continue IV cefepime and doxycycline cover empirically. Discussed case with Dr. Michel, planning stress test, possibly tomorrow. Continue heparin and nitroglycerin drips. REVIEW OF SYSTEMS CONSTITUTIONAL: Denies fevers, chills, or night sweats. No unintentional weight loss reported. NEUROLOGICAL: Denies headache, amaurosis fugax, motor weakness, sensory deficit, vertigo/spinning sensation, gait abnormalities, or tremors. ENT: No hearing loss, otalgia, otorrhea, rhinitis, rhinorrhea, hoarseness, or sore throat. CARDIOVASCULAR: Positive chest pain, orthopnea and paroxysmal nocturnal dyspnea Denies palpitations, life-threatening arrhythmias, claudication. PULMONARY: Positive shortness of breaths Denies cough, phlegm/sputum, hemoptysis, pleuritic chest pain. SLEEP: Denies morning headaches, daytime somnolence or napping. Denies difficulty falling asleep, staying asleep, waking from sleep. Denies knowledge of snoring. GASTROINTESTINAL: Denies any type of dysphagia to either liquids or solids. Denies nausea, vomiting, pyrosis, early satiety, abdominal pain, diarrhea, constipation, or changes in stool consistency or caliber. Denies coffee-ground emesis, hematemesis, hematochezia, or melanotic stools. GENITOURINARY: Denies frequency, urgency, nocturia, hematuria or incontinence (Storage/Irritative symptoms.) Low urinary stream, straining to void, urinary intermittency or hesitancy, splitting of the voiding stream, terminal dribbling. ENDOCRINOLOGIC: Denies polyuria, polydipsia, polyphagia or heat/cold intolerances. HEMATOLOGIC: Denies thrombophilia/previous clots, or coagulopathy/bleeding disorders. ONCOLOGIC: Denies personal history of malignancy. DERMATOLOGIC: Denies rashes or pruritus. PSYCHIATRIC: Denies any suicidal or homicidal ideation. Denies hallucinations. PHYSICAL EXAM GENERAL APPEARANCE: The patient is awake, alert, and oriented, in no acute cardiopulmonary distress. NEUROLOGICAL: Cranial nerves II-XII grossly intact. Motor is 5/5 in bilateral upper and lower extremities proximal to distal. No sensory deficits. HEENT: Face is symmetric. Pupils are equal and reactive. Extraocular movements are intact. NECK: Supple. No JVD. No thyromegaly. No submental, submandibular, pre-/postau ricular, occipital or supraclavicular lymphadenopathy. CHEST: Normal chest expansion. No Telemetry. LUNGS: Absence of any rales, rhonchi or any wheezing. CARDIOVASCULAR: Regular. S1 and S2 normal. No appreciable rubs, murmurs or gallops. ABDOMEN: Soft, nontender, and nondistended. There is no rebound, voluntary guarding, or rigidity. : Deferred. No Givens. EXTREMITIES: Trace edema to bilateral lower extremities SKIN: No skin breakdown. Vital Signs (last 8hr) Date Time Temp Pulse Resp B/P (MAP) Pulse Ox O2 Delivery O2 Flow Rate FiO2 05/13/24 09:00 78 17 165/70 98 Room Air* 0 21 05/13/24 07:35 79 16 168/94 99 Room Air* 0 21 05/13/24 06:36 78 12 164/89 100 Room Air* 0 05/13/24 05:10 84 12 152/85 100 Nasal Cannula* 2 05/13/24 04:15 78 12 153/79 100 Nasal Cannula* 2 05/13/24 04:11 153/79 05/13/24 03:51 76 12 143/78 100 Nasal Cannula* 2 05/13/24 03:30 75 14 153/85 100 Nasal Cannula* 2 28 LABS: Laboratory: Test 05/13/24 08:00 05/13/24 06:55 05/13/24 03:39 05/12/24 18:20 Range/Units Whole Blood Glucose 100 70-110 MG/DL White Blood Count 9.0 4.8-10.8 K/uL Red Blood Count 3.21 L 4.50-6.20 MIL/uL Hemoglobin 9.7 L 14.0-18.0 g/dL Hematocrit 29.1 L 42-54 % Mean Corpuscular Volume 90.7 79-99 fL Mean Corpuscular Hemoglobin 30.2 27.0-33.0 pg Mean Corpuscular Hemoglobin Concent 33.3 32.0-36.0 g/dL Red Cell Distribution Width 13.6 11.0-15.5 % Platelet Count 234 130-400 K/uL Mean Platelet Volume 10.5 7.5-10.5 fL Immature Granulocyte % (Auto) 0.3 0-1 % Neutrophils (%) (Auto) 51.3 40.0-77.0 % Lymphocytes (%) (Auto) 35.0 21.0-51.0 % Monocytes (%) (Auto) 8.4 3.0-13.0 % Eosinophils (%) (Auto) 4.3 0.0-8.0 % Basophils (%) (Auto) 0.7 0.0-5.0 % Neutrophils # (Auto) 4.6 1.8-7.7 K/uL Lymphocytes # (Auto) 3.2 1.0-4.8 K/uL Monocytes # (Auto) 0.8 0.1-1.0 K/uL Eosinophils # (Auto) 0.39 0.00-0.70 K/uL Basophils # (Auto) 0.06 0.00-0.20 K/uL Absolute Immature Granulocyte (auto 0.03 0-1 K/uL Nucleated Red Blood Cells 0.0 0.0-0.19 % Hemoglobin A1c 8.0 H 4.0-6.0 % Estimated Average Glucose (eAG) 183 H 70-126 mg/dL Troponin I High Sensitivity 42 4-75 ng/L Sodium Level 139 136-145 mmol/L Potassium Level 4.1 3.5-5.1 mmol/L Chloride Level 107 101-111 mmol/L Carbon Dioxide Level 23 21-32 mmol/L Blood Urea Nitrogen 43 H 7-18 mg/dL Creatinine 3.3 H 0.5-1.3 mg/dL Glomerular Filtration Rate Calc 21 >90 mL/min Random Glucose 107 H 70-105 mg/dL Total Calcium 8.1 L 8.5-10.1 mg/dL Total Bilirubin 0.2 0.2-1.0 mg/dL Aspartate Amino Transf (AST/SGOT) 21 10-37 U/L Alanine Aminotransferase (ALT/SGPT) 18 12-78 U/L Alkaline Phosphatase 90 50-136 U/L Total Protein 6.1 6.0-8.3 g/dL Albumin 2.6 L 3.5-5.0 g/dL Triglycerides Level 160 30-200 mg/dL Cholesterol Level 200 <200 mg/dL LDL Cholesterol 128 H 0-99 mg/dL HDL Cholesterol 51 29-71 mg/dL Thyroid Stimulating Hormone (TSH) 2.56 0.36-3.74 uIU/mL Troponin I < 0.05 0.00-0.05 ng/mL Test 05/12/24 18:05 Range/Units Prothrombin Time 9.8 9.6-11.6 SEC Prothromb Time International Ratio <= 0.93 0.85-1.15 Activated Partial Thromboplast Time 26.4 26.3-35.5 SEC Magnesium Level 2.30 1.80-2.40 mg/dL Total Creatine Kinase 216 21-232 U/L B-Type Natriuretic Peptide 1210 H 0-100 pg/mL Current Medications Medications (Trade) Dose Ordered Sig/Wayne Route PRN Reason Start Time Stop Time Status Last Admin Dose Admin Acetaminophen (TYLenol 325MG TAB) 650 mg Q4H PRN PO MILD PAIN (1-3) 05/12/24 21:00 06/11/24 20:59 Acetaminophen (TYLenol 325MG TAB) 650 mg Q6H PRN PO TEMPERATURE GREATER THAN 101.5 05/12/24 21:00 06/11/24 20:59 Aspirin (Aspirin 81mg Ec Tab) 81 mg DAILY PO 05/13/24 09:00 06/12/24 08:59 05/13/24 08:04 81 MG Atorvastatin Calcium (LIPItor 20MG) 20 mg HS PO 05/13/24 21:00 06/12/24 20:59 Cefepime HCl (MAXipime 1 GM vial) 1 gm Q12H IVPB 05/13/24 09:00 05/23/24 08:59 UNV Clopidogrel Bisulfate (plaVIX 75MG) 75 mg DAILY PO 05/14/24 09:00 06/13/24 08:59 Dextrose (D50w) 50 ml AD PRN IV HYPOGLYCEMIA PROTOCOL 05/12/24 21:00 06/11/24 20:59 Diphenhydramine HCl (BENAdryl INJ) 25 mg Q6H PRN IV ITCHING 05/13/24 09:00 06/12/24 08:59 Doxycycline Hyclate 250 ml @ 125 mls/hr Q12H IV 05/13/24 09:00 05/23/24 08:59 05/13/24 09:54 125 MLS/HR Famotidine (Pepcid 20mg Tab) 20 mg Q48H PO 05/13/24 09:00 06/12/24 08:59 05/13/24 08:04 20 MG Glucagon (Glucagon 1mg Kit) 1 mg AD PRN IM HYPOGLYCEMIA PROTOCOL 05/12/24 21:00 06/11/24 20:59 Heparin Sodium (Porcine) (HEParin 5,000 UNIT VIAL) 5,000 unit BID SQ 05/12/24 21:00 05/13/24 03:49 DC 05/12/24 22:15 5,000 UNIT Heparin Sodium/ Dextrose 250 ml @ 0 mls/hr PROTOCOL IV 05/13/24 04:00 06/12/24 03:59 05/13/24 04:10 12.34 MLS/HR Hydralazine HCl (APRESOLine 20MG INJ) 10 mg Q6H PRN IV ADMINISTER FOR SBP > 160 05/12/24 21:00 06/11/24 20:59 Insulin Human Regular (humuLIN R 100 UNIT/ML 3ML) INSULIN SLIDING SCAL... ACHS SQ 05/12/24 21:00 06/11/24 20:59 Magnesium Sulfate 50 ml @ 0 mls/hr PROTOCOL PRN IV OTHER [SEE ORDER COMMENTS] 05/12/24 21:00 06/11/24 20:59 Nitroglycerin (Nitroglycerin 1gm Oint) 0.5 inch Q8H TD 05/12/24 21:00 05/13/24 09:10 DC Nitroglycerin (Nitroglycerin 1gm Oint) 1 inch Q8H TD 05/13/24 09:00 06/12/24 08:59 05/13/24 09:55 1 INCH Nitroglycerin/ Dextrose 250 ml @ 0 mls/hr PROTOCOL IV 05/13/24 04:00 06/12/24 03:59 05/13/24 04:11 1.5 MLS/HR Ondansetron HCl (zoFRAN 4MG INJ) 4 mg Q6H PRN IV NAUSEA/VOMITING 05/12/24 21:00 06/11/24 20:59 Potassium Chloride 100 ml @ 100 mls/hr AD PRN IV POTASSIUM PROTOCOL 05/12/24 21:00 06/11/24 20:59 Potassium Chloride (K-Dur/Klor-Con 20meq) 10 meq AD PRN PO POTASSIUM PROTOCOL 05/12/24 21:00 06/11/24 20:59 Potassium Chloride (KCl 10% Elixir 20meq/15ml) 10 meq AD PRN PO POTASSIUM PROTOCOL 05/12/24 21:00 06/11/24 20:59 DIAGNOSTICS / RADIOLOGY: [ ] ASSESSMENT: Unstable angina rule out ACS POA Rule out PE Rule out DVT Acute respiratory failure 2/2 Acute on chronic diastolic HF/suspected acute pneumonitis, POA Uncontrolled hypertension POA Uncontrolled diabetes POA hemoglobin A1c 8 Acute kidney injury on chronic kidney disease POA Acute anemia on CKD POA Coronary artery disease with cardiac stent x3 POA Hyperlipidemia POA History of Left BKA POA History of back surgery POA PLAN: Currently admitted under ICU Continue heart healthy and non dialysis diet Continue strict intake and output, daily weights Fluid restriction 1.2 L/daily 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 Michel planning stress test if enzymes remain negative, prior to considering heart cath. Continue heparin and nitroglycerin drips Continue to monitor blood pressures Continue dual antiplatelet therapy with aspirin and Plavix Continue statin therapy with atorvastatin Critical care team consulted, appreciate recommendations Continue cefepime and doxycycline Pending Respiratory cultures Monitor and replace electrolytes per hospital protocol Continue glucometer checks a.c. and HS Continue SSI Continue hypoglycemic protocol Hemoglobin A1c 8 Pending 2D echo and CT chest Home medications to be reviewed and reconciled Trending troponins Trend renal indices Avoid nephrotoxic agents, renally dose medications Following Nephrology's recommendations Received one dose of Lasix 40 mg IV in ED Monitor a.m. labs PRN Treatment - Add when necessary meds for nausea, vomiting, pain, constipation, insomnia. DVT/GI prophylaxis- Continue heparin and famotidine at current doses. Full CODE STATUS Time of care 35 minutes This document was generated in part using voice recognition software, occasional wrong word or sound alike substitutions may have occurred due to the inherent limitations of voice recognition software. Read the chart carefully and recognize using context, where the substitutions have occurred. Although every effort was made to edit the content, steam clothes press operator and typing errors may occur This case was discussed with Dr. Stubbs and above plan was formulated CARMELO KOCH May 13, 2024 10:19
[2024-05-13 10:43] LABS: % IRON SATURATION 25.6 % (30-44)
[2024-05-13 10:44] LABS: INFLUENZA TYPE A Negative For Type A (NEGATIVE); INFLUENZA TYPE B Negative For Type B (NEGATIVE)
[2024-05-13] MEDS: acetaMINOPHEN 325 MG TAB PO PRN (11:35)
--- NOTE | 2024-05-13 11:58 | CONS ---
CONSULT NOTE: CARDIOLOGY Reason for consult: Chest pain HPI/story at presentation: This is a pleasant 58-year-old male with past medical history as per present with complaints of chest discomfort to the emergency room for his known history of coronary disease status post PCI in 20 22-3 vessels. EKG with baseline ischemia changes Subjective: 05/13/2024 no complaints Past medical history: See below Allergies, Meds See chart Review of systems Review of Systems Constitutional: Negative for chills and fever. HENT: Negative for ear discharge and ear pain. Eyes: Negative for photophobia and discharge. Respiratory: Negative for cough, sputum production and stridor. Cardiovascular: Negative for chest pain and palpitations. Gastrointestinal: Negative for diarrhea and vomiting. Genitourinary: Negative for frequency. Musculoskeletal: Negative for myalgias. Skin: Negative for rash. Neurological: Negative for focal weakness and seizures. Endo/Heme/Allergies: Negative for polydipsia. Psychiatric/Behavioral: Negative for hallucinations. Vitals see chart PHYSICAL EXAMINATION GENERAL: The patient is alert and oriented*3 HEENT: Nonicteric sclerae, non traumatic HEART: Regular rate and rhythm with no murmurs LUNGS: Clear to auscultation bilaterally ABDOMEN: No acute issues, non tender GENITAL, RECTAL: deferred SKIN: No rash NEUROLOGIC: NFND EXTREMITIES: No edema ASSESSMENT CHEST PAIN, CORONARY ARTERY DISEASE Negative troponins, EKG with ST-T wave changes at baseline No evidence of ST elevation myocardial infarction with stable EKG changes, 05/13/2024 On heparin, nitroglycerin, On Plavix beta-don statin aspirin CHRONIC KIDNEY DISEASE History of, creatinine greater than 3 PERIPHERAL VASCULAR DISEASE S/p left BKA HYPERTENSION, DIABETES, HYPERLIPIDEMIA CORE MEASURES good meds 04/2024 OTHER MEDICAL PROBLEMS Prior history of back surgery PLAN 05/12/[address] elevation myocardial infarction on EKG. Does not have ischemic changes with T wave inversions in the lateral leads and minimal ST segment changes in the anterior leads. For now, agree with heparin and nitroglycerin. Wean off nitroglycerin if pain is better, also received dose of morphine this morning. Given renal dysfunction, would risk stratify if enzymes remain negative with a stress test prior to considering cardiac catheterization if indicated. ATTESTATION I was involved substantially in the care of this patient Number and complexity of problems addressed: 1 acute illness with systemic features Amount and or complexity of data Review of prior external note(s) from each unique source: 2+ Ordering of each unique test : 0 Review of the result(s) of each unique test: 2+ Assessment requiring an independent historian(s): No Independent interpretation of test performed by another MD/QHCP/appropriate source (not separately reported) : No Discussion of management or test interpretation with external MD/QHCP/appropriate source (not separately reported) : No Risk status (cardiac, billing related): Moderate JOVANNY PITTS MD May 13, 2024 11:58
[2024-05-13] MEDS ORDERED: COMPOUND IV MISC 1 EACH IVSOLN MISC PRN (12:00)
--- NOTE | 2024-05-13 12:04 | HMCSR ---
APPROVED REPORT EXAM: Two-dimensional and M-mode echocardiogram with Doppler and color Doppler. Study Details: HTN ,HLD, Diabts M ,CAD INDICATION ICD: CP and sob Chest Pain 2D Dimensions RVDd3.4 cmLVEF(%)31.3 (>50%)LVED Vol(simp.)154.0 mL IVSd0.8 (0.7-1.1cm)FS(%)15 %LVES Vol(simp.)79.9 mL LVDd4.8 (3.8-5.6cm)LA (2D)4.1 (1.6-4.0cm)LVEF(%, simp.)48 % PWd1.4 (0.7-1.1cm)Ao Root(2D)3.4 (2.0-3.7cm)LA ESV INDEX (4CH)17.70 mL/m2 IVSs1.1 cmLVOT diam2.2 (1.8-2.4cm)LA ESV INDEX (2CH)30.10 mL/m2 LVDs4.1 (2.5-4.0cm)LA ESV INDEX (BP)24.10 mL/m2 PWs1.3 cm Deformation Strain Apical 417.0 % Apical 217.0 % Apical 315.0 % Global Yyzgrh60.0 % M-Mode Dimensions EPSS1.1 cm LA (MM)5.0 (1.6-4.0cm) Ao Root(MM)3.2 (2.0-3.7cm) Aortic Valve AoV VTI0.3 mAo Mean GR3.0 mmHgLVOT VTI0.16 m CARISSA (VMAX)2.4 cm2AVA (VTI) 2.4 cm2 Mitral Valve MV E Vmax82.9 cm/sDECEL Xfsv253 ms MV A Vmax71.8 cm/sP 1/2 T53 ms E/A ratio1.2MVA (PHT)4.1 cm2 TDI E/E' Cgcnir29.6E/E' Acnxxoa28.4 Medial E' Peak V3.00 cm/sLateral E' Peak V4.50 cm/s Pulmonary Valve PV VTI0.22 mPV Mean GR2 mmHg Left Ventricle The left ventricle is normal size. There is normal LV segmental wall motion. Mild concentric left shira tricular hypertrophy. LVEF is 45-50%. Stage II, diastolic dysfunction. Right Ventricle The right ventricle is normal size. The right ventricular systolic function is normal. Atria The left atrium size is normal. The interatrial septum is intact with no evidence for an atrial septa l defect. The right atrium size is normal. Aortic Valve The aortic valve is mildly thickened. Aortic valve is trileaflet. No aortic regurgitation is present. There is no aortic valvular stenosis. Mitral Valve The mitral valve is normal in structure. Mitral regurgitation is trace. There is no mitral valve sten osis. Tricuspid Valve The tricuspid valve is normal in structure. trace tricuspid regurgitation. Pulmonic Valve The pulmonary valve is normal in structure. There is no pulmonic valvular regurgitation. Great Vessels The aortic root is normal in size. The ascending aorta is normal in size. The IVC is normal in size a nd collapses >50% with inspiration. Pericardium There is no pericardial effusion. Conclusion LVEF is 45-50%. Stage II, diastolic dysfunction. Mild concentric left ventricular hypertrophy. The left ventricle is normal size. The aortic valve is mildly thickened. Aortic valve is trileaflet. There is no pericardial effusion. Study quality was adeequate
[2024-05-13] MEDS: metoPROLOL tartRATE 25 MG TAB PO ONE (12:22)
--- NOTE | 2024-05-13 12:24 | HMCIMG ---
US VENOUS DOPPLER BILATERAL INDICATION: Swelling. Rule out out DVT TECHNIQUE: US VENOUS DOPPLER BILATERAL Real-time venous Doppler ultrasound was performed using B mode, color flow and spectral analysis. FINDINGS: The visualized greater saphenous junction, common femoral, deep femoral, superficial femoral, popliteal and posterior tibial veins demonstrate normal compressibility and flow. No DVT is identified. Below knee amputation changes in the left. IMPRESSION: No evidence of DVT in the visualized bilateral extremities.
[2024-05-13 12:52] LABS: INR <= 0.93 (0.85-1.15); PROTHROMBIN TIME 10.3 SEC (9.6-11.6)
[2024-05-13 12:53] LABS: PARTIAL THROMBOPLASTIN TIME 63.1 SEC (26.3-35.5)
--- NOTE | 2024-05-13 13:55 | NUR ---
Late entry at 1125 notified Marvin Rivera of d-dimer of 996, no new orders.
[2024-05-13] MEDS: ceFEPime HCL 1 GM VIAL IVPB SCH (14:12)
--- NOTE | 2024-05-13 15:12 | HMCIMG ---
US RENAL SONOGRAM HISTORY: renal failure TECHNIQUE: US RENAL SONOGRAM. FINDINGS: RIGHT KIDNEY: The right kidney measures 10cm. No hydronephrosis or renal calculus seen. LEFT KIDNEY: The left kidney measures 10.4cm. No hydronephrosis or renal calculus seen. The visualized urinary bladder is within normal limits. Bladder wall measures 5 mm in thickness. Echogenic cortex is seen suggesting medical renal disease IMPRESSION: No hydronephrosis is seen. Echogenic kidneys.
--- NOTE | 2024-05-13 15:17 | CONS ---
REFERRING PHYSICIAN: Bryson Stubbs MD REASON FOR CONSULTATION: Renal failure. HISTORY OF PRESENT ILLNESS: A 58-year-old male with a history of diabetes mellitus and hypertension. He has a history of known coronary artery disease, status post coronary catheterization in the past. The patient presented to the hospital with complaints of angina. The patient had been taking nitroglycerin at home. In the Emergency Room, the patient was noted to have an elevated BUN and creatinine, and he is being seen in consultation for all of the above. The patient states he has a history of known chronic renal insufficiency, although there is no documented creatinine. He is being seen in consultation. PAST MEDICAL HISTORY: Diabetes mellitus, hypertension, coronary artery disease, hypercholesterolemia. PAST SURGICAL HISTORY: Coronary catheterization, lower extremity amputation. SOCIAL HISTORY: No alcohol or tobacco use. He lives independently. FAMILY HISTORY: No renal disease in the family. ALLERGIES: HE HAS AN ALLERGY TO PENICILLIN. MEDICATIONS: All noted. REVIEW OF SYSTEMS: GENERAL: He is feeling weak and tired. HEENT: No change in vision. No change in hearing, no nasal discharge, no sore throat. CARDIOVASCULAR: There is no current chest pain. PULMONARY: He does have the shortness of breath. GASTROINTESTINAL: The patient is tolerating a diet. MUSCULOSKELETAL: Complains of weakness. NEUROLOGIC: No seizures or focal deficits. PSYCHIATRIC: No history of hallucinations or psychosis. ENDOCRINE: Diabetes mellitus. No history of thyroid disease. HEME: History of anemia. No history of malignancy. PHYSICAL EXAMINATION: VITAL SIGNS: Blood pressure 166/72, pulse in the 80s. GENERAL: He is a chronically ill male, much older than appearing. HEENT: Head is atraumatic. Pupils equal, roving to light. Oropharynx is without exudate. Nares clear. NECK: There is no JVP. There is no thyromegaly, no mass. CARDIOVASCULAR: Regular. There is no S3, S4 gallop. LUNGS: Coarse with equal thoracic movement. ABDOMEN: Soft, nondistended, nontender. EXTREMITIES: Reveal no clubbing, no cyanosis. NEUROLOGICAL: He is awake. He is alert. He is oriented. SKIN: Reveals no rash or nodules. BACK: There is no CVA tenderness or back deformities. LABORATORY DATA: Sodium 139, potassium is 4, BUN 43, creatinine 3.3, albumin is 2.6. Iron levels are noted. Hemoglobin 9.7, hematocrit 29. IMPRESSION: * Acute on chronic renal dysfunction. * Coronary artery disease. * Diabetes mellitus. * Hypertension. * Anemia. PLAN: The patient presents with underlying angina. The patient is to be seen by Cardiology. The patient with significant renal dysfunction at least partially is related to chronic renal insufficiency. The patient will have urinalysis sent. We will also obtain a renal ultrasound for completeness. He does have significant anemia. The patient will be started on erythropoietin injections as well as IV iron. All labs can be repeated in the a.m. The patient will be started on metoprolol for his hypertension. We will follow closely. The patient would be at high risk for any contrast load from a renal standpoint. TID: [id number] RECEIPT: [id number]
[2024-05-13 15:35] LABS: APPEARANCE,URINE CLEAR (CLEAR); BILIRUBIN,URINE NEGATIVE (NEGATIVE); GLUCOSE, URINE (UA) TRACE mg/dL (NEGATIVE); KETONES,URINE NEGATIVE (NEGATIVE); LEUKOCYTE ESTERASE ,URINE NEGATIVE Leu/uL (NEGATIVE); NITRATE,URINE NEGATIVE (NEGATIVE); OCCULT BLOOD,URINE MODERATE (NEGATIVE); PH,URINE 6.5 (5.0-8.0); PROTEIN,URINE 300 mg/dL (NEGATIVE); UROBILINOGEN,URINE 0.2 mg/dL (0.2-1.0)
[2024-05-13 15:36] LABS: ADD UA MICROSCOPIC YES; COLOR,URINE STRAW (YELLOW)
[2024-05-13 15:37] LABS: MUCUS,URINE RARE LPF (None Seen); WBC,URINE 0-1 /HPF (0-1)
[2024-05-13 15:42] LABS: CREATININE,URINE RANDOM 39.86 mg/dL (30-135)
[2024-05-13 15:44] LABS: AMPHET/METH SCREEN,URINE NEGATIVE (NEGATIVE); BARBITURATE SCREEN, URINE NEGATIVE (NEGATIVE); BENZODIAZEPINES SCREEN,URINE NEGATIVE (NEGATIVE); CANNABINOID SCREEN,URINE NEGATIVE (NEGATIVE); COCAINE SCREEN,URINE NEGATIVE (NEGATIVE); OPIATE SCREEN,URINE NEGATIVE (NEGATIVE); PHENCYCLIDINE SCREEN,URINE NEGATIVE (NEGATIVE)
[2024-05-13 15:53] LABS: PROTEIN,URINE RANDOM 313.6 mg/dL (0-11.9)
[2024-05-13] MEDS: EPOETIN ALFA-EPBX (NON-ESRD) 10,000 UNIT/ML VIAL SQ ONE (16:17)
--- NOTE | 2024-05-13 17:08 | NUR ---
pt reports he still has chest pain , nitro drip discontinued at 1500, called doctor Amilcar pending call back
--- NOTE | 2024-05-13 18:03 | NUR ---
INITIAL/DCP HOME Met w pt and spouse at the bedside. Pt admitted w CHF exacerbation. EC spouse Melissa Ybarra [phone]. Preferred pharmacy is [facility] on [address] Pt lives at home w his . He is mostly wc bound and requires assist w transfers and ADLs. He receives approx 25hrs of provider services per week. He also receives PT 1xweek from [facility] . Spouse provides transportation where needed. DME includes wc and chair. DCP is for home. Addendum: 05/13/24 at 1806 by KEVIN REYNOSO CM Amended: Links added.
--- NOTE | 2024-05-13 18:06 | NUR ---
called doctor Lesley Fitzgerald in regards to patient still reporting chest pain, per md okay to restart nitro glycerin drip and repeat troponin x 2.
--- NOTE | 2024-05-13 18:37 | NUR ---
GAVE REPORT TO NEEL MADRID
[2024-05-13 19:34] LABS: INR <= 0.93 (0.85-1.15); PROTHROMBIN TIME 10.2 SEC (9.6-11.6)
[2024-05-13 19:35] LABS: PARTIAL THROMBOPLASTIN TIME 83.7 SEC (26.3-35.5)
[2024-05-13] MEDS: atorVAStatin 20 MG TABLET PO SCH (21:30)
[2024-05-13] MEDS: metoPROLOL tartRATE 25 MG TAB PO SCH (21:30)
[2024-05-13] MEDS: IRON sUCROse COMPLEX 300 MG in 0.9% NACL 250ML 250 ML IV ONE (21:30)
[2024-05-13] MEDS: furoSEMIDE 20MG VIAL IV SCH (21:30)
[2024-05-13] MEDS ORDERED: ATOR40TA69 PO (22:17)
[2024-05-13] MEDS ORDERED: ASPI-1005 PO (22:17)
[2024-05-13] MEDS ORDERED: TAMS-1 PO (22:17)
[2024-05-13] MEDS ORDERED: NITR0.4T50 SL (22:17)
[2024-05-13] MEDS ORDERED: CARV12.511 PO (22:17)
[2024-05-13] MEDS ORDERED: SODI650T PO (22:17)
[2024-05-13] MEDS ORDERED: CLOP75TA32 PO (22:17)
[2024-05-14] VITALS (90 sets, daily range): BP systolic 118–173; BP diastolic 58–107; PULSE 68–82; RESP 6–59; TEMP 97.9–98.6; O2SAT 96–100
[2024-05-14 04:02] LABS: BASOPHILS # (AUTO) 0.08 K/uL (0.00-0.20); EOSINOPHILS # (AUTO) 0.49 K/uL (0.00-0.70); HEMATOCRIT 29.3 % (42-54); IMMATURE GRANULOCYTE ABSOLUTE 0.03 K/uL (0-1); LYMPHOCYTES # (AUTO) 2.3 K/uL (1.0-4.8); LYMPHOCYTES % (AUTO) 28.6 % (21.0-51.0); MEAN CORPUSCULAR HEMOGLOBIN 30.3 pg (27.0-33.0); MEAN CORPUSCULAR HGB CONC 33.1 g/dL (32.0-36.0); MEAN CORPUSCULAR VOLUME 91.6 fL (79-99); MONOCYTES # (AUTO) 0.8 K/uL (0.1-1.0); MONOCYTES % (AUTO) 9.9 % (3.0-13.0); NEUTROPHILS # (AUTO) 4.4 K/uL (1.8-7.7); NEUTROPHILS % (AUTO) 54.1 % (40.0-77.0); PLATELET COUNT (AUTO) 259 K/uL (130-400); RED CELL DISTRIBUTION WIDTH 13.4 % (11.0-15.5); WHITE BLOOD COUNT (AUTO) 8.2 K/uL (4.8-10.8)
[2024-05-14 04:18] LABS: CREATININE 3.5 mg/dL (0.5-1.3); PHOSPHORUS 4.6 mg/dL (2.5-4.9); POTASSIUM 4.3 mmol/L (3.5-5.1)
[2024-05-14] MEDS: cloPIDOgrel 75MG TAB PO SCH (08:14)
[2024-05-14] MEDS ORDERED: PoTASSium chloRIDE 10MEQ SR 10 MEQ/TAB TAB.SR.24H PO PRN (09:30)
--- NOTE | 2024-05-14 09:36 | PN ---
[facility] PROGRESS NOTE Date Patient Seen: May 14, 2024 Time of Visit: 09:35 Supervising Physician: Rasta Durant MD Primary Care Physician: none Outpatient Specialists: Inpatient Consults: [facility], Cardiology DR Fitzgerald Attending: Enoc Massey MD PROBLEM LIST: Acute on chronic stage II diastolic dysfunction with LVEF of 45-50% POA Gram + and Gram -, Multifocal bacterial pneumonia, POA Unstable angina requiring nitroglycerin drip JOSEP on CKD stage 3, POA Chronic Normocytic anemia, POA PVD status post left BKA Hypertension Hyperglycemia in the presence of Type 2 diabetes mellitus A1C 8.0 Hyperlipidemia CAD status post stent placement x3 INTERVAL HISTORY: 05/14/24-patient is awake alert and oriented x3. He reports that overnight he had mild chest pain 5/10 and was restarted on nitroglycerin drip. Now continues with nitroglycerin drip at 30 micrograms/minute, heparin drip at 11 units/kilogram per hour. He is pain-free at this time. He is hemodynamically stable saturating 99% on room air in no apparent distress. Patient reports good urine output. CBC unremarkable similar to yesterday. Creatinine of 3.5 GFR of 19 slightly worsened than yesterday. Holding diuretics. will continue to follow cardiology recommendations. REVIEW OF SYSTEMS: 12 point ROS reviewed with patient. Pertinent positives mentioned above. Otherwise negative. PHYSICAL EXAM: GENERAL: alert, weak, awake oriented x 3 HEENT: EOMI, Sclera non icteric, moist mucosa NECK: Supple, no JVD, trachea midline LUNGS: Clear breath sounds bilaterally. No wheezes HEART: Regular rate and rhythm. Normal S1 and S2, without murmurs ABD: Abdomen soft, nontender. Bowel sounds present EXT: No clubbing cyanosis or edema NEURO: Alert and oriented to person, follows commands Vital Signs (last 8hr) Date Time Temp Pulse Resp B/P (MAP) Pulse Ox O2 Delivery O2 Flow Rate FiO2 05/14/24 08:00 70 15 155/85 98 Room Air 05/14/24 07:45 73 13 157/102 99 Room Air 05/14/24 07:30 98.2 72 13 170/94 96 Room Air 05/14/24 07:15 72 18 166/93 100 Room Air 05/14/24 07:00 72 15 167/90 98 Room Air 05/14/24 06:31 71 13 159/90 (113) 98 05/14/24 06:30 70 31 98 05/14/24 06:15 74 11 99 05/14/24 06:00 71 9 160/88 (112) 96 05/14/24 05:45 71 18 164/86 (112) 99 05/14/24 05:30 71 14 166/88 (114) 94 05/14/24 05:15 70 59 161/90 (113) 94 05/14/24 05:00 72 13 148/91 (110) 98 05/14/24 04:30 73 6 167/86 (113) 98 05/14/24 04:15 73 10 167/89 (115) 99 05/14/24 04:00 98.2 05/14/24 04:00 74 14 173/90 (117) 99 05/14/24 04:00 100 Nasal Cannula* 2 28 05/14/24 03:45 74 14 165/91 (115) 97 05/14/24 03:30 73 13 164/90 (114) 97 05/14/24 03:15 72 14 159/87 (111) 97 05/14/24 02:45 72 9 151/84 (106) 96 05/14/24 02:30 73 12 151/87 (108) 99 05/14/24 02:15 73 12 163/85 (111) 98 05/14/24 02:00 73 12 161/88 (112) 98 05/14/24 01:45 73 13 161/86 (111) 96 LABS: Hematology Labs: Test 05/14/24 03:24 Range/Units White Blood Count 8.2 4.8-10.8 K/uL Red Blood Count 3.20 L 4.50-6.20 MIL/uL Hemoglobin 9.7 L 14.0-18.0 g/dL Hematocrit 29.3 L 42-54 % Mean Corpuscular Volume 91.6 79-99 fL Mean Corpuscular Hemoglobin 30.3 27.0-33.0 pg Mean Corpuscular Hemoglobin Concent 33.1 32.0-36.0 g/dL Red Cell Distribution Width 13.4 11.0-15.5 % Platelet Count 259 130-400 K/uL Mean Platelet Volume 10.2 7.5-10.5 fL Immature Granulocyte % (Auto) 0.4 0-1 % Neutrophils (%) (Auto) 54.1 40.0-77.0 % Lymphocytes (%) (Auto) 28.6 21.0-51.0 % Monocytes (%) (Auto) 9.9 3.0-13.0 % Eosinophils (%) (Auto) 6.0 0.0-8.0 % Basophils (%) (Auto) 1.0 0.0-5.0 % Neutrophils # (Auto) 4.4 1.8-7.7 K/uL Lymphocytes # (Auto) 2.3 1.0-4.8 K/uL Monocytes # (Auto) 0.8 0.1-1.0 K/uL Eosinophils # (Auto) 0.49 0.00-0.70 K/uL Basophils # (Auto) 0.08 0.00-0.20 K/uL Absolute Immature Granulocyte (auto 0.03 0-1 K/uL Nucleated Red Blood Cells 0.0 0.0-0.19 % Chemistry Labs: Test 05/14/24 03:24 05/14/24 00:19 05/13/24 21:23 05/13/24 09:56 Range/Units Sodium Level 140 136-145 mmol/L Potassium Level 4.3 3.5-5.1 mmol/L Chloride Level 108 101-111 mmol/L Carbon Dioxide Level 26 21-32 mmol/L Blood Urea Nitrogen 43 H 7-18 mg/dL Creatinine 3.5 H 0.5-1.3 mg/dL Glomerular Filtration Rate Calc 19 >90 mL/min Random Glucose 116 H 70-105 mg/dL Total Calcium 8.4 L 8.5-10.1 mg/dL Phosphorus Level 4.6 2.5-4.9 mg/dL Magnesium Level 2.00 1.80-2.40 mg/dL Procalcitonin 0.10 0.05-0.5 ng/mL Troponin I High Sensitivity 26 4-75 ng/L Whole Blood Glucose 160 H 70-110 MG/DL Lactic Acid Level 0.7 L 0.8-2.5 mmol/L Iron Level 64 L 65-175 mcg/dL Total Iron Binding Capacity 250 250-450 mcg/dL Percent Iron Saturation 25.6 L 30-44 % Total Bilirubin 0.3 # 0.2-1.0 mg/dL Direct Bilirubin 0.1 0.0-0.3 mg/dL Aspartate Amino Transf (AST/SGOT) 23 10-37 U/L Alanine Aminotransferase (ALT/SGPT) 19 12-78 U/L Alkaline Phosphatase 88 50-136 U/L B-Type Natriuretic Peptide 1020 H 0-100 pg/mL Total Protein 6.1 6.0-8.3 g/dL Albumin 2.7 L 3.5-5.0 g/dL Vitamin B12 Level 423 193-986 pg/mL Folic Acid (LAB) 15.20 2-20 ng/mL Test 05/13/24 06:55 05/13/24 03:39 05/12/24 18:20 05/12/24 18:05 Range/Units Hemoglobin A1c 8.0 H 4.0-6.0 % Estimated Average Glucose (eAG) 183 H 70-126 mg/dL Triglycerides Level 160 30-200 mg/dL Cholesterol Level 200 <200 mg/dL LDL Cholesterol 128 H 0-99 mg/dL HDL Cholesterol 51 29-71 mg/dL Thyroid Stimulating Hormone (TSH) 2.56 0.36-3.74 uIU/mL Troponin I < 0.05 0.00-0.05 ng/mL Total Creatine Kinase 216 21-232 U/L Coagulation Labs: Test 05/14/24 08:53 05/13/24 19:17 05/13/24 09:56 Range/Units Activated Partial Thromboplast Time 52.1 #H 26.3-35.5 SEC Prothrombin Time 10.2 9.6-11.6 SEC Prothromb Time International Ratio <= 0.93 0.85-1.15 D-Dimer Quantitative (PE/DVT) 996 *H 0-500 ng/mL DIAGNOSTICS / RADIOLOGY RESULTS: IMAGING REPORT Signed PATIENT: CHRISTEL LEONG MR#: [id number] : 1965 SEX: M AGE: 58 LOCATION: [facility] ORDER 00 STATUS: ADM IN REPORT#: [id number] SERVICE 46 REASON: cp and sob ORDERING PHYSICIAN: MARIBEL REDD PROCEDURE: ECHO CMP - ECHO 2-D COMPLETE APPROVED REPORT EXAM: Two-dimensional and M-mode echocardiogram with Doppler and color Doppler. Study Details: HTN ,HLD, Diabts M ,CAD INDICATION ICD: CP and sob Chest Pain 2D Dimensions RVDd 3.4 cm LVEF(%) 31.3 (>50%) LVED Vol(simp.) 154.0 mL IVSd 0.8 (0.7-1.1cm) FS(%) 15 % LVES Vol(simp.) 79.9 mL LVDd 4.8 (3.8-5.6cm) LA (2D) 4.1 (1.6-4.0cm) LVEF(%, simp.) 48 % PWd 1.4 (0.7-1.1cm) Ao Root(2D) 3.4 (2.0-3.7cm) LA ESV INDEX (4CH) 17.70 mL/m2 IVSs 1.1 cm LVOT diam 2.2 (1.8-2.4cm) LA ESV INDEX (2CH) 30.10 mL/m2 LVDs 4.1 (2.5-4.0cm) LA ESV INDEX (BP) 24.10 mL/m2 PWs 1.3 cm Deformation Strain Apical 4 17.0 % Apical 2 17.0 % Apical 3 15.0 % Global Strain 16.0 % M-Mode Dimensions EPSS 1.1 cm LA (MM) 5.0 (1.6-4.0cm) Ao Root(MM) 3.2 (2.0-3.7cm) Aortic Valve AoV VTI 0.3 m Ao Mean GR 3.0 mmHg LVOT VTI 0.16 m CARISSA (VMAX) 2.4 cm2 CARISSA (VTI) 2.4 cm2 Mitral Valve MV E Vmax 82.9 cm/s DECEL Time 180 ms MV A Vmax 71.8 cm/s P 1/2 T 53 ms E/A ratio 1.2 MVA (PHT) 4.1 cm2 TDI E/E' Medial 27.6 E/E' Lateral 18.4 Medial E' Peak V 3.00 cm/s Lateral E' Peak V 4.50 cm/s Pulmonary Valve PV VTI 0.22 m PV Mean GR 2 mmHg Left Ventricle The left ventricle is normal size. There is normal LV segmental wall motion. Mild concentric left ventricular hypertrophy. LVEF is 45-50%. Stage II, diastolic dysfunction. Right Ventricle The right ventricle is normal size. The right ventricular systolic function is normal. Atria The left atrium size is normal. The interatrial septum is intact with no evidence for an atrial septal defect. The right atrium size is normal. Aortic Valve The aortic valve is mildly thickened. Aortic valve is trileaflet. No aortic regurgitation is present. There is no aortic valvular stenosis. Mitral Valve The mitral valve is normal in structure. Mitral regurgitation is trace. There is no mitral valve stenosis. Tricuspid Valve The tricuspid valve is normal in structure. trace tricuspid regurgitation. Pulmonic Valve The pulmonary valve is normal in structure. There is no pulmonic valvular regurgitation. Great Vessels The aortic root is normal in size. The ascending aorta is normal in size. The IVC is normal in size and collapses >50% with inspiration. Pericardium There is no pericardial effusion. Conclusion LVEF is 45-50%. Stage II, diastolic dysfunction. Mild concentric left ventricular hypertrophy. The left ventricle is normal size. The aortic valve is mildly thickened. Aortic valve is trileaflet. There is no pericardial effusion. Study quality was adeequate DICTATED BY: JOVANNY FITZGERALD MD DATE: 05/13/24 0846 ELECTRONICALLY SIGNED BY: JOVANNY FITZGERALD MD DATE: 05/13/24 1203 PLAN Acute on chronic stage II diastolic dysfunction with LVEF of 45-50% POA -I&O Q 1 hour -fluid restriction of 1500 -daily weights Multifocal bacterial pneumonia, POA -empiric coverage for cap-cefepime and dioxide -MRSA swab, influenza swab and COVID-19 swab. -sputum culture Unstable angina -nitroglycerin drip -per cardiology recs -HEART Score 5 points (Moderate Score) -heparin drip -aspirin, Plavix, statin, beta don JOSEP on CKD stage 3, POA -avoid nephrotoxic agents Chronic Normocytic anemia, POA -likely from CKD -monitor H&H -monitor for bleeding PVD status post left BKA -continue antiplatelet Hypertension -nitro drip, p.r.n. hydralazine Hyperglycemia in the presence of Type 2 diabetes mellitus A1C 8.0 -ISS Hyperlipidemia -continue atorvastatin CAD status post stent placement x3 -continue Plavix and aspirin NEURO: Minimize central acting medications as possible. Fall Precautions. Well lighted room through the day and minimize interruptions through the night to prevent acute delirium. PULMONARY: Supplemental 02 as needed Titrate Fio2 to keep Spo2 > or = 90% DuoNebs and CPT as needed IS hourly while awake for pulmonary hygiene Out of bed to chair as tolerated CARDIOVASCULAR: Follow hemodynamics. Titrate vasopressor to keep MAP >65 or systolic blood pressure >95mmHg Drips: Heparin Nitroglycerin LINES: PIV GI & NUTRITION: Continue nutritional support Aspirations precautions Prokinetic agents and laxatives as needed Heart has been diet KIDNEYS & ELECTROLYTES: Strict monitoring of intake and output Daily weights Avoid nephrotoxic agents Monitor electrolytes and replace as needed Goal urine output of 30mL/hr or 0.5mL/kg/hr Urine output: [ ] Fluid Balance: [ ] ENDOCRINE: Maintain blood glucose between 100-180 at all times. Insulin sliding scale for blood glucose management ISS INFECTIOUS DISEASE: Trend temperature. Kenny-culture if febrile. Micro: [ ] Respiratory culture Antibiotics: [ ] Cefepime and doxy HEMATOLOGY & COAGULATION: Monitor H&H. Keep Hgb > 7 Transfuse 1 unit of PRBC for Hgb < 7 Transfuse 1 pack of platelets of platelets < 20, 000 Watch for any signs and symptoms of bleeding SKIN: Pressure ulcer prevention per facility protocol Rehab: PT/OT Prophylaxis: GI: Protonix DVT: Heparin drip Code Status: Full Resuscitation Disposition: ICU Other: Total patient care time exceeds 35 minutes excluding all procedures. Case was discussed and seen with my supervising physician. The above plan was formulated and agreed upon. EULA WHITE May 14, 2024 09:36
--- NOTE | 2024-05-14 10:10 | PN ---
CARDIOLOGY Reason for consult: Chest pain HPI/story at presentation: This is a pleasant 58-year-old male with past medical history as per present with complaints of chest discomfort to the emergency room for his known history of coronary disease status post PCI in 20 22-3 vessels. EKG with baseline ischemia changes Subjective: 05/13/2024 no complaints 05/14/2024 no complaints on NTG drip Past medical history: See below Allergies, Meds See chart Review of systems Review of Systems Constitutional: Negative for chills and fever. HENT: Negative for ear discharge and ear pain. Eyes: Negative for photophobia and discharge. Respiratory: Negative for cough, sputum production and stridor. Cardiovascular: Negative for chest pain and palpitations. Gastrointestinal: Negative for diarrhea and vomiting. Genitourinary: Negative for frequency. Musculoskeletal: Negative for myalgias. Skin: Negative for rash. Neurological: Negative for focal weakness and seizures. Endo/Heme/Allergies: Negative for polydipsia. Psychiatric/Behavioral: Negative for hallucinations. Vitals see chart PHYSICAL EXAMINATION GENERAL: The patient is alert and oriented*3 HEENT: Nonicteric sclerae, non traumatic HEART: Regular rate and rhythm with no murmurs LUNGS: Clear to auscultation bilaterally ABDOMEN: No acute issues, non tender GENITAL, RECTAL: deferred SKIN: No rash NEUROLOGIC: NFND EXTREMITIES: No edema ASSESSMENT CHEST PAIN, CORONARY ARTERY DISEASE Negative troponins, EKG with ST-T wave changes at baseline No evidence of ST elevation myocardial infarction with stable EKG changes, 05/13/2024 On heparin, nitroglycerin, On Plavix beta-don statin aspirin CHRONIC KIDNEY DISEASE History of, creatinine greater than 3 PERIPHERAL VASCULAR DISEASE S/p left BKA HYPERTENSION, DIABETES, HYPERLIPIDEMIA CORE MEASURES good meds 04/2024 OTHER MEDICAL PROBLEMS Prior history of back surgery PLAN 05/13/[address] elevation myocardial infarction on EKG. Does not have ischemic changes with T wave inversions in the lateral leads and minimal ST segment changes in the anterior leads. For now, agree with heparin and nitroglycerin. Wean off nitroglycerin if pain is better, also received dose of morphine this morning. Given renal dysfunction, would risk stratify if enzymes remain negative with a stress test prior to considering cardiac catheterization if indicated. 05/14/2024 Renal function still elevated, will try to wean off nitroglycerin drip as unable to proceed with stress testing while on nitroglycerin. Not a good candidate for cardiac catheterization given renal injury risk and risk of dialysis which at this time, patient is hesitant about. Will try to get off nitroglycerin and still consider potentially stress testing to rule stratify prior to considering contrast. Start isosorbide to potentially help come off nitroglycerin drip. Volume status is still acceptable. EF of 45 to 50% on echocardiogram. Currently on Nitropaste isosorbide Plavix beta-don statin aspirin. If he comes off nitroglycerin, would consider stress testing tomorrow. Seen and examined at around 10 AM. ATTESTATION I was involved substantially in the care of this patient Number and complexity of problems addressed: 1 acute illness with systemic features Amount and or complexity of data Review of prior external note(s) from each unique source: 2+ Ordering of each unique test : 0 Review of the result(s) of each unique test: 2+ Assessment requiring an independent historian(s): No Independent interpretation of test performed by another MD/QHCP/appropriate source (not separately reported) : No Discussion of management or test interpretation with external MD/QHCP/appropriate source (not separately reported) : No Risk status (cardiac, billing related): Moderate Vitals/Labs Vital Signs Date Time Temp Pulse Resp B/P (MAP) Pulse Ox O2 Delivery O2 Flow Rate FiO2 05/14/24 08:00 70 15 155/85 98 Room Air 05/14/24 07:30 98.2 05/14/24 04:00 2 28 Laboratory Tests 05/14/24 03:24 Medications Current Medications Furosemide 40 mg ONCE ONCE IV Last administered on 05/12/24at 20:42; Start 05/12/24 at 20:00; Stop 05/12/24 at 20:01; Status DC Nitroglycerin 1 inch ONCE ONCE TD Last administered on 05/12/24at 20:42; Start 05/12/24 at 20:30; Stop 05/12/24 at 20:33; Status DC Morphine Sulfate 2 mg ONCE ONCE IVP Last administered on 05/12/24at 20:42; Start 05/12/24 at 20:30; Stop 05/12/24 at 20:31; Status DC Labetalol HCl 10 mg ONCE ONCE IV Last administered on 05/12/24at 22:21; Start 05/12/24 at 20:30; Stop 05/12/24 at 20:31; Status DC Acetaminophen 650 mg Q6H PRN PO Last administered on 05/13/24at 11:35; Start 05/12/24 at 21:00; Stop 06/11/24 at 20:59 Acetaminophen 650 mg Q4H PRN PO; Start 05/12/24 at 21:00; Stop 06/11/24 at 20:59 Ondansetron HCl 4 mg Q6H PRN IV; Start 05/12/24 at 21:00; Stop 06/11/24 at 20:59 Heparin Sodium (Porcine) 5,000 unit BID SQ Last administered on 05/12/24at 22:15; Start 05/12/24 at 21:00; Stop 05/13/24 at 03:49; Status DC Famotidine 20 mg Q48H PO Last administered on 05/13/24at 08:04; Start 05/13/24 at 09:00; Stop 06/12/24 at 08:59 Nitroglycerin 0.5 inch Q8H TD; Start 05/12/24 at 21:00; Stop 05/13/24 at 09:10; Status DC Insulin Human Regular INSULIN SLIDING SCAL... ACHS SQ; Start 05/12/24 at 21:00; Stop 06/11/24 at 20:59 Dextrose 50 ml AD PRN IV; Start 05/12/24 at 21:00; Stop 06/11/24 at 20:59 Glucagon 1 mg AD PRN IM; Start 05/12/24 at 21:00; Stop 06/11/24 at 20:59 Magnesium Sulfate 50 ml @ 0 mls/hr PROTOCOL PRN IV; Start 05/12/24 at 21:00; Stop 06/11/24 at 20:59 Potassium Chloride 100 ml @ 100 mls/hr AD PRN IV; Start 05/12/24 at 21:00; Stop 06/11/24 at 20:59 Potassium Chloride 10 meq AD PRN PO; Start 05/12/24 at 21:00; Stop 06/11/24 at 20:59 Potassium Chloride 10 meq AD PRN PO; Start 05/12/24 at 21:00; Stop 05/14/24 at 09:03; Status DC Hydralazine HCl 10 mg Q6H PRN IV; Start 05/12/24 at 21:00; Stop 06/11/24 at 20:59 Aspirin 81 mg DAILY PO Last administered on 05/14/24at 08:14; Start 05/13/24 at 09:00; Stop 06/12/24 at 08:59 Hydromorphone HCl 0.2 mg ONCE ONCE IVP Last administered on 05/12/24at 23:46; Start 05/12/24 at 23:30; Stop 05/12/24 at 23:31; Status DC Heparin Sodium/ Dextrose 250 ml @ 0 mls/hr PROTOCOL IV Last administered on 05/14/24at 02:11; Start 05/13/24 at 04:00; Stop 06/12/24 at 03:59 Nitroglycerin/ Dextrose 250 ml @ 0 mls/hr PROTOCOL IV Last administered on 05/13/24at 04:11; Start 05/13/24 at 04:00; Stop 06/12/24 at 03:59 Heparin Sodium (Porcine) 5,000 unit ONCE ONCE IV Last administered on 05/13/24at 04:11; Start 05/13/24 at 04:00; Stop 05/13/24 at 04:06; Status DC Clopidogrel Bisulfate 300 mg ONCE ONCE PO Last administered on 05/13/24at 04:38; Start 05/13/24 at 05:00; Stop 05/13/24 at 05:01; Status DC Morphine Sulfate 1 mg ONCE ONCE IVP Last administered on 05/13/24at 06:46; Start 05/13/24 at 06:30; Stop 05/13/24 at 06:31; Status DC Atorvastatin Calcium 20 mg HS PO Last administered on 05/13/24at 21:30; Start 05/13/24 at 21:00; Stop 06/12/24 at 20:59 Cefepime HCl 1 gm Q24H IVPB Last administered on 05/13/24at 14:12; Start 05/13/24 at 13:00; Stop 05/23/24 at 12:59 Doxycycline Hyclate 250 ml @ 125 mls/hr Q12H IV Last administered on 05/14/24at 08:14; Start 05/13/24 at 09:00; Stop 05/23/24 at 08:59 Diphenhydramine HCl 25 mg Q6H PRN IV; Start 05/13/24 at 09:00; Stop 06/12/24 at 08:59 Clopidogrel Bisulfate 75 mg DAILY PO Last administered on 05/14/24at 08:14; Start 05/14/24 at 09:00; Stop 06/13/24 at 08:59 Nitroglycerin 1 inch Q8H TD Last administered on 05/14/24at 08:14; Start 05/13/24 at 09:00; Stop 06/12/24 at 08:59 Sodium Chloride 4 ml STK-MED ONCE IH; Start 05/13/24 at 09:37; Stop 05/13/24 at 09:38; Status DC Iron Sucrose 300 mg/Sodium Chloride 250 ml @ 83 mls/hr ONCE ONCE IV Last administered on 05/13/24at 21:30; Start 05/13/24 at 21:00; Stop 05/14/24 at 00:00; Status DC Epoetin Simon-epbx 10,000 unit ONCE ONCE SQ Last administered on 05/13/24at 16:17; Start 05/13/24 at 16:00; Stop 05/13/24 at 16:01; Status DC Metoprolol Tartrate 25 mg BID PO Last administered on 05/14/24at 08:14; Start 05/13/24 at 21:00; Stop 05/14/24 at 09:51; Status DC Metoprolol Tartrate 25 mg ONCE ONCE PO Last administered on 05/13/24at 12:22; Start 05/13/24 at 12:00; Stop 05/13/24 at 12:01; Status DC Furosemide 20 mg Q12H IV Last administered on 05/14/24at 08:13; Start 05/13/24 at 21:00; Stop 06/12/24 at 20:59 Potassium Chloride 10 meq AD PRN PO; Start 05/14/24 at 09:30; Stop 06/11/24 at 20:59 Carvedilol 12.5 mg BID PO; Start 05/14/24 at 21:00; Stop 06/13/24 at 20:59 Tamsulosin HCl 0.4 mg DAILY PO; Start 05/15/24 at 09:00; Stop 06/14/24 at 08:59 JOVANNY PITTS MD May 14, 2024 10:10
--- NOTE | 2024-05-14 10:16 | PN ---
FOLLOWUP PROGRESS NOTE SUBJECTIVE: A 58-year-old male with longstanding history of diabetes mellitus and hypertension. The patient with a history of known coronary artery disease. He initially presented with chest pain. The patient is being seen by Cardiology. The patient did have extensive renal workup consistent with diabetic nephropathy. The patient's creatinine continues to be elevated and he is being seen as a followup visit for all the above. REVIEW OF SYSTEMS: GENERAL: He is feeling improved overnight. HEENT: No change in vision. No change in hearing. CARDIOVASCULAR: There is no current chest pain or palpitations. PULMONARY: There is no shortness of breath. GASTROINTESTINAL: The patient is tolerating a diet. MUSCULOSKELETAL: Complains of weakness. PHYSICAL EXAMINATION: VITAL SIGNS: Blood pressure 155/85, pulse in the 70s. GENERAL: Chronically ill male, older than appearing. HEENT: Head is atraumatic. Pupils equal, roving to light. Oropharynx is without exudate. Nares clear. NECK: There is no JVP. There is no thyromegaly, no mass. CARDIOVASCULAR: Regular. There is no S3, S4 gallop. LUNGS: Coarse with equal thoracic movement. ABDOMEN: Soft, nondistended, nontender. EXTREMITIES: Reveal no clubbing, no cyanosis. NEUROLOGIC: He is awake. He is alert. He is oriented. LABORATORY DATA: Sodium 140, potassium 4.3, BUN 43, creatinine 3.5, hemoglobin 9.7, hematocrit 29, urine protein creatinine ratio is 10. IMPRESSION: * Acute on chronic renal failure. * Diabetic nephropathy. * Coronary artery disease. * Anemia. PLAN: The patient's creatinine 3.5 mg/dl essentially the patient's baseline. Workup is consistent with diabetic nephropathy. The patient did receive IV iron as well as erythropoietin injections for the anemia. The patient does have history of coronary artery disease and workup is ongoing per Cardiology. The patient would be an high risk for any contrast load secondary to his renal failure and we will follow the patient closely. TID: [id number] RECEIPT: [id number]
[2024-05-14] MEDS: ISOSORBIDE MONO 60MG SR TAB PO SCH (11:49)
[2024-05-14] MEDS: tamSULOsin HCL 0.4 MG CAP.ER.24H PO ONE (11:49)
--- NOTE | 2024-05-14 12:21 | PN ---
[facility] PROGRESS NOTE Date of Service: May 14, 2024 Time of Service: 12:04 SUBJECTIVE: [ ] 58-year-old male with past medical history of essential hypertension, diabetes mellitus type 2, CAD with cardiac stent x3, hyperlipidemia, CHF, anemia of chronic disease and CKD with a admitted yesterday evening in to the PCCU with diagnosis of unstable angina, acute diastolic heart failure. Patient originally presented with chest pain and shortness of breath with and without exertion, orthopnea for approximately one week. Nephrology and cardiology teams consulted. 2D echo and CT chest are pending. Today at bedside evaluation patient's blood pressure continues to be elevated with latest at 165/70, the rest of his vitals are stable, he was satting 98% on room air. CBC is stable with H&H at 9.7/29.1, BUN is 43, creatinine 3.3, hemoglobin A1c 8, calcium 8.1, last night BNP is 1210. We are still pending CT chest and 2D echo. Continue strict intake and output, daily weights, fluid restriction 1.2 L/daily. Continue dual antiplatelet therapy with aspirin, Plavix. Continue IV cefepime and doxycycline cover empirically. Discussed case with Dr. Michel, planning stress test, possibly tomorrow. Continue heparin and nitroglycerin drips. 05/14 Patient is resting comfortably in bed. He reports mild chest pain but is otherwise resting comfortably. Continues on nitro drip. REVIEW OF SYSTEMS CONSTITUTIONAL: Denies fevers, chills, or night sweats. No unintentional weight loss reported. NEUROLOGICAL: Denies headache, amaurosis fugax, motor weakness, sensory deficit, vertigo/spinning sensation, gait abnormalities, or tremors. ENT: No hearing loss, otalgia, otorrhea, rhinitis, rhinorrhea, hoarseness, or sore throat. CARDIOVASCULAR: Positive chest pain, orthopnea and paroxysmal nocturnal dyspnea Denies palpitations, life-threatening arrhythmias, claudication. PULMONARY: Positive shortness of breaths Denies cough, phlegm/sputum, hemoptysis, pleuritic chest pain. SLEEP: Denies morning headaches, daytime somnolence or napping. Denies difficulty falling asleep, staying asleep, waking from sleep. Denies knowledge of snoring. GASTROINTESTINAL: Denies any type of dysphagia to either liquids or solids. Denies nausea, vomiting, pyrosis, early satiety, abdominal pain, diarrhea, constipation, or changes in stool consistency or caliber. Denies coffee-ground emesis, hematemesis, hematochezia, or melanotic stools. GENITOURINARY: Denies frequency, urgency, nocturia, hematuria or incontinence (Storage/Irritative symptoms.) Low urinary stream, straining to void, urinary intermittency or hesitancy, splitting of the voiding stream, terminal dribbling. ENDOCRINOLOGIC: Denies polyuria, polydipsia, polyphagia or heat/cold intolerances. HEMATOLOGIC: Denies thrombophilia/previous clots, or coagulopathy/bleeding disorders. ONCOLOGIC: Denies personal history of malignancy. DERMATOLOGIC: Denies rashes or pruritus. PSYCHIATRIC: Denies any suicidal or homicidal ideation. Denies hallucinations. PHYSICAL EXAM GENERAL APPEARANCE: The patient is awake, alert, and oriented, in no acute cardiopulmonary distress. NEUROLOGICAL: Cranial nerves II-XII grossly intact. Motor is 5/5 in bilateral upper and lower extremities proximal to distal. No sensory deficits. HEENT: Face is symmetric. Pupils are equal and reactive. Extraocular movements are intact. NECK: Supple. No JVD. No thyromegaly. No submental, submandibular, pre- /postauricular, occipital or supraclavicular lymphadenopathy. CHEST: Normal chest expansion. No Telemetry. LUNGS: Absence of any rales, rhonchi or any wheezing. CARDIOVASCULAR: Regular. S1 and S2 normal. No appreciable rubs, murmurs or gallops. ABDOMEN: Soft, nontender, and nondistended. There is no rebound, voluntary guarding, or rigidity. : Deferred. No Givens. EXTREMITIES: Trace edema to bilateral lower extremities SKIN: No skin breakdown. Vital Signs (last 8hr) Date Time Temp Pulse Resp B/P (MAP) Pulse Ox O2 Delivery O2 Flow Rate FiO2 05/14/24 08:00 98 Room Air* 0 21 05/14/24 08:00 70 15 155/85 98 Room Air 05/14/24 07:45 73 13 157/102 99 Room Air 05/14/24 07:30 98.2 72 13 170/94 96 Room Air 05/14/24 07:15 72 18 166/93 100 Room Air 05/14/24 07:00 72 15 167/90 98 Room Air 05/14/24 06:31 71 13 159/90 (113) 98 05/14/24 06:30 70 31 98 05/14/24 06:15 74 11 99 05/14/24 06:00 71 9 160/88 (112) 96 05/14/24 05:45 71 18 164/86 (112) 99 05/14/24 05:30 71 14 166/88 (114) 94 05/14/24 05:15 70 59 161/90 (113) 94 05/14/24 05:00 72 13 148/91 (110) 98 05/14/24 04:30 73 6 167/86 (113) 98 05/14/24 04:15 73 10 167/89 (115) 99 LABS: Laboratory: Test 05/14/24 11:17 05/14/24 08:53 05/14/24 04:27 05/14/24 03:24 Range/Units Whole Blood Glucose 114 H 70-110 MG/DL Activated Partial Thromboplast Time 52.1 #H 26.3-35.5 SEC Parathyroid Hormone (Intact) 133.4 15-65 pg/mL White Blood Count 8.2 4.8-10.8 K/uL Red Blood Count 3.20 L 4.50-6.20 MIL/uL Hemoglobin 9.7 L 14.0-18.0 g/dL Hematocrit 29.3 L 42-54 % Mean Corpuscular Volume 91.6 79-99 fL Mean Corpuscular Hemoglobin 30.3 27.0-33.0 pg Mean Corpuscular Hemoglobin Concent 33.1 32.0-36.0 g/dL Red Cell Distribution Width 13.4 11.0-15.5 % Platelet Count 259 130-400 K/uL Mean Platelet Volume 10.2 7.5-10.5 fL Immature Granulocyte % (Auto) 0.4 0-1 % Neutrophils (%) (Auto) 54.1 40.0-77.0 % Lymphocytes (%) (Auto) 28.6 21.0-51.0 % Monocytes (%) (Auto) 9.9 3.0-13.0 % Eosinophils (%) (Auto) 6.0 0.0-8.0 % Basophils (%) (Auto) 1.0 0.0-5.0 % Neutrophils # (Auto) 4.4 1.8-7.7 K/uL Lymphocytes # (Auto) 2.3 1.0-4.8 K/uL Monocytes # (Auto) 0.8 0.1-1.0 K/uL Eosinophils # (Auto) 0.49 0.00-0.70 K/uL Basophils # (Auto) 0.08 0.00-0.20 K/uL Absolute Immature Granulocyte (auto 0.03 0-1 K/uL Nucleated Red Blood Cells 0.0 0.0-0.19 % Sodium Level 140 136-145 mmol/L Potassium Level 4.3 3.5-5.1 mmol/L Chloride Level 108 101-111 mmol/L Carbon Dioxide Level 26 21-32 mmol/L Blood Urea Nitrogen 43 H 7-18 mg/dL Creatinine 3.5 H 0.5-1.3 mg/dL Glomerular Filtration Rate Calc 19 >90 mL/min Random Glucose 116 H 70-105 mg/dL Total Calcium 8.4 L 8.5-10.1 mg/dL Phosphorus Level 4.6 2.5-4.9 mg/dL Magnesium Level 2.00 1.80-2.40 mg/dL Procalcitonin 0.10 0.05-0.5 ng/mL Test 05/14/24 00:19 05/13/24 19:17 05/13/24 15:26 05/13/24 09:56 Range/Units Troponin I High Sensitivity 26 4-75 ng/L Prothrombin Time 10.2 9.6-11.6 SEC Prothromb Time International Ratio <= 0.93 0.85-1.15 Urine Color STRAW YELLOW Urine Appearance CLEAR CLEAR Urine pH 6.5 5.0-8.0 Urine Specific [facility] 1.009 1.001-1.031 Urine Protein 300 H NEGATIVE mg/dL Urine Glucose (UA) TRACE H NEGATIVE mg/dL Urine Ketones NEGATIVE NEGATIVE mg/dL Urine Occult Blood MODERATE H NEGATIVE Urine Nitrate NEGATIVE NEGATIVE Urine Bilirubin NEGATIVE NEGATIVE mg/dL Urine Urobilinogen 0.2 0.2-1.0 mg/dL Urine Leukocyte Esterase NEGATIVE NEGATIVE Daniela/uL Urine RBC 2-5 H 0-1 /HPF Urine WBC 0-1 0-1 /HPF Urine Bacteria None None Seen /HPF Urine Random Creatinine 39.86 30-135 mg/dL Urine Random Total Protein 313.6 H 0-11.9 mg/dL Urine Opiates Screen NEGATIVE NEGATIVE Urine Barbiturates Screen NEGATIVE NEGATIVE Urine Phencyclidine Screen NEGATIVE NEGATIVE Urine Amphetamines Screen NEGATIVE NEGATIVE Urine Benzodiazepines Screen NEGATIVE NEGATIVE Urine Cocaine Screen NEGATIVE NEGATIVE Urine Marijuana (THC) Screen NEGATIVE NEGATIVE D-Dimer Quantitative (PE/DVT) 996 *H 0-500 ng/mL Lactic Acid Level 0.7 L 0.8-2.5 mmol/L Iron Level 64 L 65-175 mcg/dL Total Iron Binding Capacity 250 250-450 mcg/dL Percent Iron Saturation 25.6 L 30-44 % Total Bilirubin 0.3 # 0.2-1.0 mg/dL Direct Bilirubin 0.1 0.0-0.3 mg/dL Aspartate Amino Transf (AST/SGOT) 23 10-37 U/L Alanine Aminotransferase (ALT/SGPT) 19 12-78 U/L Alkaline Phosphatase 88 50-136 U/L B-Type Natriuretic Peptide 1020 H 0-100 pg/mL Total Protein 6.1 6.0-8.3 g/dL Albumin 2.7 L 3.5-5.0 g/dL Vitamin B12 Level 423 193-986 pg/mL Folic Acid (LAB) 15.20 2-20 ng/mL Influenza Type A Antigen Negative For Type A NEGATIVE Influenza Type B Antigen Negative For Type B NEGATIVE SARS-CoV-2 Antigen (Rapid) PRESUMPTIVE NEGATIVE NEGATIVE Test 05/13/24 06:55 05/13/24 03:39 05/12/24 18:20 05/12/24 18:05 Range/Units Hemoglobin A1c 8.0 H 4.0-6.0 % Estimated Average Glucose (eAG) 183 H 70-126 mg/dL Triglycerides Level 160 30-200 mg/dL Cholesterol Level 200 <200 mg/dL LDL Cholesterol 128 H 0-99 mg/dL HDL Cholesterol 51 29-71 mg/dL Thyroid Stimulating Hormone (TSH) 2.56 0.36-3.74 uIU/mL Troponin I < 0.05 0.00-0.05 ng/mL Total Creatine Kinase 216 21-232 U/L Current Medications Medications (Trade) Dose Ordered Sig/Wayne Route PRN Reason Start Time Stop Time Status Last Admin Dose Admin Acetaminophen (TYLenol 325MG TAB) 650 mg Q4H PRN PO MILD PAIN (1-3) 05/12/24 21:00 06/11/24 20:59 Acetaminophen (TYLenol 325MG TAB) 650 mg Q6H PRN PO TEMPERATURE GREATER THAN 101.5 05/12/24 21:00 06/11/24 20:59 05/13/24 11:35 650 MG Aspirin (Aspirin 81mg Ec Tab) 81 mg DAILY PO 05/13/24 09:00 06/12/24 08:59 05/14/24 08:14 81 MG Atorvastatin Calcium (LIPItor 20MG) 20 mg HS PO 05/13/24 21:00 05/14/24 10:21 DC 05/13/24 21:30 20 MG Atorvastatin Calcium (LIPItor 40MG) 40 mg HS PO 05/14/24 21:00 06/13/24 20:59 Carvedilol (Coreg 12.5MG) 12.5 mg BID PO 05/14/24 21:00 06/13/24 20:59 Cefepime HCl (MAXipime 1 GM vial) 1 gm Q24H IVPB 05/13/24 13:00 05/23/24 12:59 05/13/24 14:12 1 GM Clopidogrel Bisulfate (plaVIX 75MG) 75 mg DAILY PO 05/14/24 09:00 06/13/24 08:59 05/14/24 08:14 75 MG Dextrose (D50w) 50 ml AD PRN IV HYPOGLYCEMIA PROTOCOL 05/12/24 21:00 06/11/24 20:59 Diphenhydramine HCl (BENAdryl INJ) 25 mg Q6H PRN IV ITCHING 05/13/24 09:00 06/12/24 08:59 Doxycycline Hyclate 250 ml @ 125 mls/hr Q12H IV 05/13/24 09:00 05/23/24 08:59 05/14/24 08:14 125 MLS/HR Famotidine (Pepcid 20mg Tab) 20 mg Q48H PO 05/13/24 09:00 06/12/24 08:59 05/13/24 08:04 20 MG Furosemide (LASix 20MG VIAL) 20 mg Q12H IV 05/13/24 21:00 05/14/24 10:10 DC 05/14/24 08:13 20 MG Glucagon (Glucagon 1mg Kit) 1 mg AD PRN IM HYPOGLYCEMIA PROTOCOL 05/12/24 21:00 06/11/24 20:59 Heparin Sodium (Porcine) (HEParin 5,000 UNIT VIAL) 5,000 unit BID SQ 05/12/24 21:00 05/13/24 03:49 DC 05/12/24 22:15 5,000 UNIT Heparin Sodium/ Dextrose 250 ml @ 0 mls/hr PROTOCOL IV 05/13/24 04:00 06/12/24 03:59 05/14/24 02:11 10.56 MLS/HR Hydralazine HCl (APRESOLine 20MG INJ) 10 mg Q6H PRN IV ADMINISTER FOR SBP > 160 05/12/24 21:00 06/11/24 20:59 Insulin Human Regular (humuLIN R 100 UNIT/ML 3ML) INSULIN SLIDING SCAL... ACHS SQ 05/12/24 21:00 06/11/24 20:59 Isosorbide Mononitrate (Imdur 60mg Sr) 60 mg DAILY PO 05/14/24 11:00 06/13/24 10:59 Magnesium Sulfate 50 ml @ 0 mls/hr PROTOCOL PRN IV OTHER [SEE ORDER COMMENTS] 05/12/24 21:00 06/11/24 20:59 Metoprolol Tartrate (loprESSOR) 25 mg BID PO 05/13/24 21:00 05/14/24 09:51 DC 05/14/24 08:14 25 MG Morphine Sulfate (morPHINE 2MG SYG) 1 mg Q6H6 PRN IVP SEVERE PAIN (7-10) 05/14/24 11:00 05/21/24 10:59 Nitroglycerin (Nitroglycerin 1gm Oint) 0.5 inch Q8H TD 05/12/24 21:00 05/13/24 09:10 DC Nitroglycerin (Nitroglycerin 1gm Oint) 1 inch Q8H TD 05/13/24 09:00 06/12/24 08:59 05/14/24 08:14 1 INCH Nitroglycerin/ Dextrose 250 ml @ 0 mls/hr PROTOCOL IV 05/13/24 04:00 06/12/24 03:59 05/13/24 04:11 1.5 MLS/HR Ondansetron HCl (zoFRAN 4MG INJ) 4 mg Q6H PRN IV NAUSEA/VOMITING 05/12/24 21:00 06/11/24 20:59 Potassium Chloride 100 ml @ 100 mls/hr AD PRN IV POTASSIUM PROTOCOL 05/12/24 21:00 06/11/24 20:59 Potassium Chloride (K-Dur 10meq Sr Tab) 10 meq AD PRN PO POTASSIUM PROTOCOL 05/14/24 09:30 06/11/24 20:59 Potassium Chloride (K-Dur/Klor-Con 20meq) 10 meq AD PRN PO POTASSIUM PROTOCOL 05/12/24 21:00 05/14/24 09:03 DC Potassium Chloride (KCl 10% Elixir 20meq/15ml) 10 meq AD PRN PO POTASSIUM PROTOCOL 05/12/24 21:00 06/11/24 20:59 Tamsulosin HCl (FloMAX) 0.4 mg DAILY PO 05/15/24 09:00 06/14/24 08:59 DIAGNOSTICS / RADIOLOGY: [ ] ASSESSMENT: Unstable angina rule out ACS POA Rule out PE Rule out DVT Acute respiratory failure 2/2 Acute on chronic diastolic HF/suspected acute pneumonitis, POA Uncontrolled hypertension POA Uncontrolled diabetes POA hemoglobin A1c 8 Acute kidney injury on chronic kidney disease POA Acute anemia on CKD POA Coronary artery disease with cardiac stent x3 POA Hyperlipidemia POA History of Left BKA POA History of back surgery POA PLAN: Currently admitted under ICU Continue heart healthy and non dialysis diet GI prophylaxis with famotidine 2D echo: LVEF 45-50%, stage II diastolic dysfunction Following grape grower's recommendations, Dr. Michel -Possible stress test tomorrow Continue nitroglycerin drips Continue to monitor blood pressures Continue dual antiplatelet therapy with aspirin and Plavix Continue statin therapy with atorvastatin CT chest: Bilateral pleural effusions with ground-glass opacities concerning for multifocal pneumonia Follow up with Pulmonary/critical Care Medicine Continue cefepime and doxycycline Follow up Respiratory cultures Continue strict intake and output, daily weights Fluid restriction 1.2 L/daily Monitor and replace electrolytes per hospital protocol Avoid nephrotoxic agents, renally dose medications Trend a.m. BMP Follow up with Nephrology Continue glucometer checks a.c. and HS Continue SSI Continue hypoglycemic protocol Trend a.m. CBC DVT prophylaxis- Continue heparin Full CODE STATUS Case discussed with the patient and nurse at bedside Time of care 35 minutes NATIVIDAD CHAN IV, MD May 14, 2024 12:21
--- NOTE | 2024-05-14 14:10 | NUR ---
Patient has been requesting to be carried from bed to bedside commode to urinate several times today. Nurse Trell encouraged patient to urinate in urinal while in bed. Patient has been refusing to void in urinal, patient is also refusing insertion of bolivar catheter as recommended by Irish Trinh NP. Patient is max assistance for transferring due to patient having a left BKA and severe weakness to right lower extremity. Patient states that he will just have his carrying him to the commode since she does it at home. Patient educated by HUMAIRA Cai that he is in the intensive care unit and needs to remain in bed until a nurse arrives. Maggie (Charge Nurse) is aware of situation, no further needs noted.
--- NOTE | 2024-05-14 18:47 | CONS ---
INFECTIOUS DISEASE CONSULTATION DATE OF SERVICE: 05/14/2024. REQUESTING PHYSICIAN: Dr. Stubbs. REASON FOR CONSULTATION: Pneumonia and antibiotic management. HISTORY OF PRESENT ILLNESS: A 58-year-old male with history of diabetes mellitus, hypertension, coronary artery disease, who presented to hospital with cough, shortness of breath, and chest pain. Cough is dry and nonproductive. Shortness of breath is worse on mild exertion. The patient currently quietly walks 1 block. The patient also has orthopnea and PND. CT of the chest was done, showed multifocal pneumonia. The patient also found with respiratory failure and pulmonary edema. The patient has a history of coronary artery disease and recently had deployment of 3 stents done about 2 months ago in [place]. 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 PAST MEDICAL HISTORY: * Diabetes mellitus. * Hypertension. * Dyslipidemia. * Coronary artery disease. PAST SURGICAL HISTORY: * PTCA. * Right testicle surgery. * Back surgery. * Left BKA. ALLERGIES: PENICILLIN, BUT TOLERATING CEPHALOSPORIN. CURRENT MEDICATIONS: Reviewed. SOCIAL HISTORY: Lives with . No tobacco or illicit drug use, but the patient drinks socially. FAMILY HISTORY: Positive for diabetes mellitus. REVIEW OF SYSTEMS: CONSTITUTIONAL: No fever, no chills, no weight loss or night sweats. EYES: No eye pain, no photophobia or diplopia. HENT: No sore throat, no rhinorrhea. NECK: No neck pain, no neck swelling. RESPIRATORY: Positive for cough. No hemoptysis or pleuritic pain. CARDIOVASCULAR: Positive for shortness of breath, orthopnea, and PND. GASTROINTESTINAL: Denied any nausea, vomiting, or abdominal pain. GENITOURINARY: No dysuria, urgency, or urinary frequency. CENTRAL NERVOUS SYSTEM: No headache, dyspnea, or slurred speech. PSYCHIATRY: No depression. No suicidal ideation. MUSCULOSKELETAL: No joint pain or joint swelling. PHYSICAL EXAMINATION: GENERAL: Elderly male, awake. VITAL SIGNS: Temperature 97.9, pulse 73, respiratory rate 18, BP 144/84. EYES: No icterus. Pupils equal and reactive. HENT: No oral thrush seen. Moist oral mucosa. NECK: Supple, no JVD or thyromegaly. LUNGS: Good air entry. Crackles bilaterally. CARDIOVASCULAR SYSTEM: S1, S2 regular. No murmur heard. ABDOMEN: Full, soft, nontender. Bowel sound is present. CENTRAL NERVOUS SYSTEM: The patient is awake, alert, oriented x 3. No focal deficits. SKIN: No rashes, no itchiness. LYMPHATIC: No peripheral lymphadenopathy. BACK: No deformity, no pressure ulcer. MUSCULOSKELETAL: No joint swelling, erythema, or tenderness. LABORATORY DATA: Sodium 140, potassium 4.3, BUN 43, creatinine 3.5. WBC 8.2, hemoglobin 9.7, platelet count 59. Urine toxicology negative. Urinalysis negative. Sputum culture shows normal franci. RADIOLOGY: CT chest showed multifocal pneumonia. Venous Doppler unremarkable. Renal sonogram showed no hydronephrosis. ASSESSMENT: A 58-year-old male admitted with cough, shortness of breath. CURRENT PROBLEMS: Include: * Multifocal pneumonia. * Hypoxic respiratory failure. * Heart failure. * Acute renal failure. * Hypertension. * Diabetes mellitus. PLAN: * Continue cefepime. * Continue doxycycline. * Continue pain management. * Avoid nephrotoxic medication. * Continue antidiabetic. * Continue nutritional support. * Continue oxygen. * Monitor renal function. * The patient will be followed up closely. Thank you for allowing me to participate in the care of this patient. TID: [id number] RECEIPT: [id number]
[2024-05-14] MEDS: atorVAStatin 40 MG TABLET PO SCH (20:27)
[2024-05-14] MEDS: carVEDIlol 12.5 MG TABLET PO SCH (20:29)
[2024-05-14] MEDS: hydrALAZine 20MG/ML VIAL IV PRN (22:13)
[2024-05-15] VITALS (87 sets, daily range): BP systolic 77–174; BP diastolic 50–114; PULSE 70–83; RESP 6–52; TEMP 97.8–98.5; O2SAT 99–100
--- NOTE | 2024-05-15 00:52 | NUR ---
Spoke to Dr. Fitzgerald, plan to do stress test in am once nitro drip is off
[2024-05-15] MEDS: morPHINE 2 MG SYG IVP PRN (01:09)
--- NOTE | 2024-05-15 01:09 | NUR ---
C/O INTERMITTENT CHEST PAIN, PT CURRENTLY ON NITRO DRIP 10 MCG/MIN, MORPHINE 1 MG IVP GIVEN, ENCOURAGED TO RELAX, VS STABLE, WILL CONTINUE MONITORING PT
--- NOTE | 2024-05-15 02:00 | NUR ---
DENIES CHEST PAIN, NO ACUTE DISTRESS NOTED, VS STABLE, WILL CONTINUE MONITORING PT
--- NOTE | 2024-05-15 03:23 | NUR ---
C/O CHEST TIGHTNESS, VS STABLE, DR. PITTS NOTIFIED, NEW ORDERS GIVEN Addendum: 05/15/24 at 0349 by KATE BECERRIL RN RN ORDERS GIVEN TO GIVE MORPHINE, GET TROPONINS, KEEP PT NPO, TRY TO D/C NITRO DRNELY, SCHEDULE FOR STRESS TEST IN AM
[2024-05-15] MEDS: morPHINE 2 MG SYG IVP STA (03:38)
--- NOTE | 2024-05-15 06:00 | NUR ---
DENIES CHEST PAIN, NITRO DRIP DISCONTINUED ORDERED BY DR. POLK, PT INSTRUCTED NPO FOR STRESS TEST, VERBALIZED UNDERSTANDING, SCHEDULED FOR STRESS, ENCOURAGED TO CALL IF ANY MORE CHEST PAIN
--- NOTE | 2024-05-15 09:00 | NUR ---
TRANSFER OUT REQUEST TO [facility] [place] FOR LG SCAN PER DR PITTS CARDIO. SALO RN
--- NOTE | 2024-05-15 09:26 | PN ---
FOLLOWUP PROGRESS NOTE SUBJECTIVE: A 58-year-old male with history of diabetes mellitus and hypertension. The patient initially admitted and found to have underlying angina. The patient is scheduled for a stress test later today. He has a history of underlying renal dysfunction consistent with diabetic nephropathy. Creatinine has remained fairly stable overnight. The patient has been weaned off the nicardipine and he is being seen as a followup visit for all of the above. REVIEW OF SYSTEMS: GENERAL: The patient is feeling weak and tired. HEENT: No change in vision. No change in hearing. CARDIOVASCULAR: There is no current chest pain or palpitations. PULMONARY: Denies any shortness of breath. GASTROINTESTINAL: The patient is tolerating diet. MUSCULOSKELETAL: Complains of weakness. PHYSICAL EXAMINATION: VITAL SIGNS: Blood pressure 150/78, pulse in the 70s. GENERAL: Chronically ill male, older than appearing, atraumatic. Pupils equal, roving to light. Oropharynx is without exudate. Nares clear. NECK: There is no JVP. There is no thyromegaly, no mass. CARDIOVASCULAR: Regular. There is no S3, S4 gallop. LUNGS: Coarse with equal thoracic movement. ABDOMEN: Soft, nondistended, nontender. EXTREMITIES: Reveal no clubbing, no cyanosis. NEUROLOGIC: He is awake. He is alert. LABORATORY DATA: Hemoglobin 9.7, hematocrit 29. Sodium 140, BUN 43, creatinine 3.5. IMPRESSION: * Acute on chronic renal failure. * Diabetic nephropathy. * Coronary artery disease. * Diabetes mellitus. * Hypertension. PLAN: The patient's creatinine of 3.5 mg/dl is essentially the patient's baseline. The patient did receive IV iron as well as erythropoietin injections for the anemia. There is no need for any form of renal replacement therapy. Cardiac workup is ongoing. All labs can be repeated in the a.m. The patient and family at the bedside. Multiple questions were all answered. TID: [id number] RECEIPT: [id number]
--- NOTE | 2024-05-15 09:40 | NUR ---
TRANSFER CALL PLACE TO [facility] [place] TRAN[facility] INFORMATION PROVIDED TO HANNA INTAKE NURSE WILL CALL BACK. SALO GERARDO
[2024-05-15] MEDS: tamSULOsin HCL 0.4 MG CAP.ER.24H PO SCH (09:56)
--- NOTE | 2024-05-15 10:12 | EKG ---
[facility] Test Date: 2024-05-15 Test Time: 09:24:30 Pat Name: CHRISTEL LEONG Department: 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 : [id number] Requested By: JOVANNY PITTS Order Number: [id number] Reading MD: Eduardo Bates Measurements Intervals [place] Rate: 76 P: 42 NH: 160 QRS: 21 QRSD: 92 T: 95 QT: 422 QTc: 474 Interpretive Statements Normal sinus rhythm ST elevation, consider early repolarization, pericarditis, or injury Nonspecific T wave abnormality Prolonged QT Compared to ECG 05/13/2024 03:29:59 ST (T wave) deviation now present Prolonged QT interval now present Possible ischemia no longer present T-wave abnormality still present Electronically Signed On 05-16-2024 11:52:26 AUTOMATIC STACKER by Eduardo Bates Please click the below link to view image of tracing.
--- NOTE | 2024-05-15 11:46 | PN ---
[facility] PROGRESS NOTE Date of Service: May 15, 2024 Time of Service: 11:39 SUBJECTIVE: 58-year-old male with past medical history of essential hypertension, diabetes mellitus type 2, CAD with cardiac stent x3, hyperlipidemia, CHF, anemia of chronic disease and CKD with a admitted yesterday evening in to the PCCU with diagnosis of unstable angina, acute diastolic heart failure. Patient originally presented with chest pain and shortness of breath with and without exertion, orthopnea for approximately one week. Nephrology and cardiology teams consulted. 2D echo and CT chest are pending. Today at bedside evaluation patient's blood pressure continues to be elevated with latest at 165/70, the rest of his vitals are stable, he was satting 98% on room air. CBC is stable with H&H at 9.7/29.1, BUN is 43, creatinine 3.3, hemoglobin A1c 8, calcium 8.1, last night BNP is 1210. We are still pending CT chest and 2D echo. Continue strict intake and output, daily weights, fluid restriction 1.2 L/daily. Continue dual antiplatelet therapy with aspirin, Plavix. Continue IV cefepime and doxycycline cover empirically. Discussed case with Dr. Michel, planning stress test, possibly tomorrow. Continue heparin and nitroglycerin drips. 05/14 Patient is resting comfortably in bed. He reports mild chest pain but is otherwise resting comfortably. Continues on nitro drip. 05/15 Patient reports persistent mild chest pain. Patient continues on nitro and heparin drip. REVIEW OF SYSTEMS CONSTITUTIONAL: Denies fevers, chills, or night sweats. No unintentional weight loss reported. NEUROLOGICAL: Denies headache, amaurosis fugax, motor weakness, sensory deficit, vertigo/spinning sensation, gait abnormalities, or tremors. ENT: No hearing loss, otalgia, otorrhea, rhinitis, rhinorrhea, hoarseness, or sore throat. CARDIOVASCULAR: Positive chest pain, orthopnea and paroxysmal nocturnal dyspnea Denies palpitations, life-threatening arrhythmias, claudication. PULMONARY: Positive shortness of breaths Denies cough, phlegm/sputum, hemoptysis, pleuritic chest pain. SLEEP: Denies morning headaches, daytime somnolence or napping. Denies difficulty falling asleep, staying asleep, waking from sleep. Denies knowledge of snoring. GASTROINTESTINAL: Denies any type of dysphagia to either liquids or solids. Denies nausea, vomiting, pyrosis, early satiety, abdominal pain, diarrhea, constipation, or changes in stool consistency or caliber. Denies coffee-ground emesis, hematemesis, hematochezia, or melanotic stools. GENITOURINARY: Denies frequency, urgency, nocturia, hematuria or incontinence (Storage/Irritative symptoms.) Low urinary stream, straining to void, urinary intermittency or hesitancy, splitting of the voiding stream, terminal dribbling. ENDOCRINOLOGIC: Denies polyuria, polydipsia, polyphagia or heat/cold intolerances. HEMATOLOGIC: Denies thrombophilia/previous clots, or coagulopathy/bleeding disorders. ONCOLOGIC: Denies personal history of malignancy. DERMATOLOGIC: Denies rashes or pruritus. PSYCHIATRIC: Denies any suicidal or homicidal ideation. Denies hallucinations. PHYSICAL EXAM GENERAL APPEARANCE: The patient is awake, alert, and oriented, in no acute cardiopulmonary distress. NEUROLOGICAL: Cranial nerves II-XII grossly intact. Motor is 5/5 in bilateral upper and lower extremities proximal to distal. No sensory deficits. HEENT: Face is symmetric. Pupils are equal and reactive. Extraocular movements are intact. NECK: Supple. No JVD. No thyromegaly. No submental, submandibular, pre- /postauricular, occipital or supraclavicular lymphadenopathy. CHEST: Normal chest expansion. No Telemetry. LUNGS: Absence of any rales, rhonchi or any wheezing. CARDIOVASCULAR: Regular. S1 and S2 normal. No appreciable rubs, murmurs or gallops. ABDOMEN: Soft, nontender, and nondistended. There is no rebound, voluntary guarding, or rigidity. : Deferred. No Givens. EXTREMITIES: Trace edema to bilateral lower extremities SKIN: No skin breakdown. Vital Signs (last 8hr) Date Time Temp Pulse Resp B/P (MAP) Pulse Ox O2 Delivery O2 Flow Rate FiO2 05/15/24 09:57 144/75 05/15/24 06:00 74 11 150/78 (102) 99 05/15/24 05:45 74 18 144/77 (99) 99 05/15/24 05:30 73 12 143/79 (100) 99 05/15/24 05:30 73 18 143/79 (100) 99 05/15/24 05:15 75 12 143/77 (99) 99 05/15/24 05:00 76 14 130/74 (92) 99 05/15/24 04:45 76 14 132/76 (94) 98 05/15/24 04:30 76 18 118/79 (92) 100 05/15/24 04:15 76 16 135/72 (93) 99 05/15/24 04:00 98.4 75 16 141/74 (96) 100 05/15/24 04:00 98.4 20 LABS: Laboratory: Test 05/15/24 11:28 05/15/24 10:08 05/15/24 03:56 05/14/24 04:27 Range/Units Whole Blood Glucose 98 70-110 MG/DL Troponin I High Sensitivity 27 4-75 ng/L Activated Partial Thromboplast Time 58.0 H 26.3-35.5 SEC Parathyroid Hormone (Intact) 133.4 15-65 pg/mL Test 05/14/24 03:24 05/13/24 19:17 05/13/24 15:26 Range/Units White Blood Count 8.2 4.8-10.8 K/uL Red Blood Count 3.20 L 4.50-6.20 MIL/uL Hemoglobin 9.7 L 14.0-18.0 g/dL Hematocrit 29.3 L 42-54 % Mean Corpuscular Volume 91.6 79-99 fL Mean Corpuscular Hemoglobin 30.3 27.0-33.0 pg Mean Corpuscular Hemoglobin Concent 33.1 32.0-36.0 g/dL Red Cell Distribution Width 13.4 11.0-15.5 % Platelet Count 259 130-400 K/uL Mean Platelet Volume 10.2 7.5-10.5 fL Immature Granulocyte % (Auto) 0.4 0-1 % Neutrophils (%) (Auto) 54.1 40.0-77.0 % Lymphocytes (%) (Auto) 28.6 21.0-51.0 % Monocytes (%) (Auto) 9.9 3.0-13.0 % Eosinophils (%) (Auto) 6.0 0.0-8.0 % Basophils (%) (Auto) 1.0 0.0-5.0 % Neutrophils # (Auto) 4.4 1.8-7.7 K/uL Lymphocytes # (Auto) 2.3 1.0-4.8 K/uL Monocytes # (Auto) 0.8 0.1-1.0 K/uL Eosinophils # (Auto) 0.49 0.00-0.70 K/uL Basophils # (Auto) 0.08 0.00-0.20 K/uL Absolute Immature Granulocyte (auto 0.03 0-1 K/uL Nucleated Red Blood Cells 0.0 0.0-0.19 % Sodium Level 140 136-145 mmol/L Potassium Level 4.3 3.5-5.1 mmol/L Chloride Level 108 101-111 mmol/L Carbon Dioxide Level 26 21-32 mmol/L Blood Urea Nitrogen 43 H 7-18 mg/dL Creatinine 3.5 H 0.5-1.3 mg/dL Glomerular Filtration Rate Calc 19 >90 mL/min Random Glucose 116 H 70-105 mg/dL Total Calcium 8.4 L 8.5-10.1 mg/dL Phosphorus Level 4.6 2.5-4.9 mg/dL Magnesium Level 2.00 1.80-2.40 mg/dL Procalcitonin 0.10 0.05-0.5 ng/mL Prothrombin Time 10.2 9.6-11.6 SEC Prothromb Time International Ratio <= 0.93 0.85-1.15 Urine Color STRAW YELLOW Urine Appearance CLEAR CLEAR Urine pH 6.5 5.0-8.0 Urine Specific [place] 1.009 1.001-1.031 Urine Protein 300 H NEGATIVE mg/dL Urine Glucose (UA) TRACE H NEGATIVE mg/dL Urine Ketones NEGATIVE NEGATIVE mg/dL Urine Occult Blood MODERATE H NEGATIVE Urine Nitrate NEGATIVE NEGATIVE Urine Bilirubin NEGATIVE NEGATIVE mg/dL Urine Urobilinogen 0.2 0.2-1.0 mg/dL Urine Leukocyte Esterase NEGATIVE NEGATIVE Daniela/uL Urine RBC 2-5 H 0-1 /HPF Urine WBC 0-1 0-1 /HPF Urine Bacteria None None Seen /HPF Urine Random Creatinine 39.86 30-135 mg/dL Urine Random Total Protein 313.6 H 0-11.9 mg/dL Urine Opiates Screen NEGATIVE NEGATIVE Urine Barbiturates Screen NEGATIVE NEGATIVE Urine Phencyclidine Screen NEGATIVE NEGATIVE Urine Amphetamines Screen NEGATIVE NEGATIVE Urine Benzodiazepines Screen NEGATIVE NEGATIVE Urine Cocaine Screen NEGATIVE NEGATIVE Urine Marijuana (THC) Screen NEGATIVE NEGATIVE Current Medications Medications (Trade) Dose Ordered Sig/Wayne Route PRN Reason Start Time Stop Time Status Last Admin Dose Admin Acetaminophen (TYLenol 325MG TAB) 650 mg Q4H PRN PO MILD PAIN (1-3) 05/12/24 21:00 06/11/24 20:59 Acetaminophen (TYLenol 325MG TAB) 650 mg Q6H PRN PO TEMPERATURE GREATER THAN 101.5 05/12/24 21:00 06/11/24 20:59 05/13/24 11:35 650 MG Aspirin (Aspirin 81mg Ec Tab) 81 mg DAILY PO 05/13/24 09:00 06/12/24 08:59 05/15/24 09:57 81 MG Atorvastatin Calcium (LIPItor 20MG) 20 mg HS PO 05/13/24 21:00 05/14/24 10:21 DC 05/13/24 21:30 20 MG Atorvastatin Calcium (LIPItor 40MG) 40 mg HS PO 05/14/24 21:00 06/13/24 20:59 05/14/24 20:27 40 MG Carvedilol (Coreg 12.5MG) 12.5 mg BID PO 05/14/24 21:00 06/13/24 20:59 05/15/24 09:57 12.5 MG Cefepime HCl (MAXipime 1 GM vial) 1 gm Q24H IVPB 05/13/24 13:00 05/23/24 12:59 05/14/24 12:07 1 GM Clopidogrel Bisulfate (plaVIX 75MG) 75 mg DAILY PO 05/14/24 09:00 06/13/24 08:59 05/15/24 09:58 75 MG Dextrose (D50w) 50 ml AD PRN IV HYPOGLYCEMIA PROTOCOL 05/12/24 21:00 06/11/24 20:59 Diphenhydramine HCl (BENAdryl INJ) 25 mg Q6H PRN IV ITCHING 05/13/24 09:00 06/12/24 08:59 Doxycycline Hyclate 250 ml @ 125 mls/hr Q12H IV 05/13/24 09:00 05/23/24 08:59 05/15/24 09:58 125 MLS/HR Famotidine (Pepcid 20mg Tab) 20 mg Q48H PO 05/13/24 09:00 06/12/24 08:59 05/15/24 09:56 20 MG Furosemide (LASix 20MG VIAL) 20 mg Q12H IV 05/13/24 21:00 05/14/24 10:10 DC 05/14/24 08:13 20 MG Glucagon (Glucagon 1mg Kit) 1 mg AD PRN IM HYPOGLYCEMIA PROTOCOL 05/12/24 21:00 06/11/24 20:59 Heparin Sodium (Porcine) (HEParin 5,000 UNIT VIAL) 5,000 unit BID SQ 05/12/24 21:00 05/13/24 03:49 DC 05/12/24 22:15 5,000 UNIT Heparin Sodium/ Dextrose 250 ml @ 0 mls/hr PROTOCOL IV 05/13/24 04:00 06/12/24 03:59 05/15/24 11:22 7.7 MLS/HR Hydralazine HCl (APRESOLine 20MG INJ) 10 mg Q6H PRN IV ADMINISTER FOR SBP > 160 05/12/24 21:00 06/11/24 20:59 05/14/24 22:13 10 MG Insulin Human Regular (humuLIN R 100 UNIT/ML 3ML) INSULIN SLIDING SCAL... ACHS SQ 05/12/24 21:00 06/11/24 20:59 Isosorbide Mononitrate (Imdur 60mg Sr) 60 mg DAILY PO 05/14/24 11:00 06/13/24 10:59 05/15/24 09:56 60 MG Magnesium Sulfate 50 ml @ 0 mls/hr PROTOCOL PRN IV OTHER [SEE ORDER COMMENTS] 05/12/24 21:00 06/11/24 20:59 Metoprolol Tartrate (loprESSOR) 25 mg BID PO 05/13/24 21:00 05/14/24 09:51 DC 05/14/24 08:14 25 MG Morphine Sulfate (morPHINE 2MG SYG) 1 mg ONCE STAT IVP 05/15/24 03:19 05/15/24 03:27 DC 05/15/24 03:38 1 MG Morphine Sulfate (morPHINE 2MG SYG) 1 mg Q6H6 PRN IVP SEVERE PAIN (7-10) 05/14/24 11:00 05/21/24 10:59 05/15/24 01:09 1 MG Nitroglycerin (Nitroglycerin 1gm Oint) 0.5 inch Q8H TD 05/12/24 21:00 05/13/24 09:10 DC Nitroglycerin (Nitroglycerin 1gm Oint) 1 inch Q8H TD 05/13/24 09:00 06/12/24 08:59 05/15/24 09:57 1 INCH Nitroglycerin/ Dextrose 250 ml @ 0 mls/hr PROTOCOL IV 05/13/24 04:00 06/12/24 03:59 05/14/24 11:50 15 MLS/HR Ondansetron HCl (zoFRAN 4MG INJ) 4 mg Q6H PRN IV NAUSEA/VOMITING 05/12/24 21:00 06/11/24 20:59 Potassium Chloride 100 ml @ 100 mls/hr AD PRN IV POTASSIUM PROTOCOL 05/12/24 21:00 06/11/24 20:59 Potassium Chloride (K-Dur 10meq Sr Tab) 10 meq AD PRN PO POTASSIUM PROTOCOL 05/14/24 09:30 06/11/24 20:59 Potassium Chloride (K-Dur/Klor-Con 20meq) 10 meq AD PRN PO POTASSIUM PROTOCOL 05/12/24 21:00 05/14/24 09:03 DC Potassium Chloride (KCl 10% Elixir 20meq/15ml) 10 meq AD PRN PO POTASSIUM PROTOCOL 05/12/24 21:00 06/11/24 20:59 Tamsulosin HCl (FloMAX) 0.4 mg DAILY PO 05/15/24 09:00 06/14/24 08:59 05/15/24 09:56 0.4 MG DIAGNOSTICS / RADIOLOGY: [ ] ASSESSMENT: Unstable angina rule out ACS POA Rule out PE Rule out DVT Acute respiratory failure 2/2 Acute on chronic diastolic HF/suspected acute pneumonitis, POA Uncontrolled hypertension POA Uncontrolled diabetes POA hemoglobin A1c 8 Acute kidney injury on chronic kidney disease POA Acute anemia on CKD POA Coronary artery disease with cardiac stent x3 POA Hyperlipidemia POA History of Left BKA POA History of back surgery POA PLAN: Currently admitted under ICU Continue heart healthy and non dialysis diet GI prophylaxis with famotidine 2D echo: LVEF 45-50%, stage II diastolic dysfunction Following telecommunications sales representative's recommendations, Dr. Michel -transferred to [facility] [place] [facility] Continue nitroglycerin And heparindrips Continue to monitor blood pressures Continue dual antiplatelet therapy with aspirin and Plavix Continue statin therapy with atorvastatin CT chest: Bilateral pleural effusions with ground-glass opacities concerning for multifocal pneumonia Follow up with Pulmonary/critical Care Medicine Follow up With the Infectious Disease -Continue cefepime and doxycycline -close follow up Continue strict intake and output, daily weights Fluid restriction 1.2 L/daily Monitor and replace electrolytes per hospital protocol Avoid nephrotoxic agents, renally dose medications Trend a.m. BMP Follow up with Nephrology -no renal replacement therapy indicated at this time Continue glucometer checks a.c. and HS Continue SSI Continue hypoglycemic protocol Trend a.m. CBC DVT prophylaxis- Continue heparin Full CODE STATUS Case discussed with the patient and nurse at bedside Time of care 35 minutes NATIVIDAD CHAN IV, MD May 15, 2024 11:46
--- NOTE | 2024-05-15 11:50 | NUR ---
TRANSFER INTAKE NURSE CALL BACK WITH A DENIAL [facility] [place] [facility]. PRIMARY NURSE MADE AWARE. SALO GERARDO
--- NOTE | 2024-05-15 12:00 | PN ---
CARDIOLOGY Reason for consult: Chest pain HPI/story at presentation: This is a pleasant 58-year-old male with past medical history as per present with complaints of chest discomfort to the emergency room for his known history of coronary disease status post PCI in 20 22-3 vessels. EKG with baseline ischemia changes Subjective: 05/13/2024 no complaints 05/14/2024 no complaints on NTG drip 05/15/2024 no complaints Past medical history: See below Allergies, Meds See chart Review of systems Review of Systems Constitutional: Negative for chills and fever. HENT: Negative for ear discharge and ear pain. Eyes: Negative for photophobia and discharge. Respiratory: Negative for cough, sputum production and stridor. Cardiovascular: Negative for chest pain and palpitations. Gastrointestinal: Negative for diarrhea and vomiting. Genitourinary: Negative for frequency. Musculoskeletal: Negative for myalgias. Skin: Negative for rash. Neurological: Negative for focal weakness and seizures. Endo/Heme/Allergies: Negative for polydipsia. Psychiatric/Behavioral: Negative for hallucinations. Vitals see chart PHYSICAL EXAMINATION GENERAL: The patient is alert and oriented*3 HEENT: Nonicteric sclerae, non traumatic HEART: Regular rate and rhythm with no murmurs LUNGS: Clear to auscultation bilaterally ABDOMEN: No acute issues, non tender GENITAL, RECTAL: deferred SKIN: No rash NEUROLOGIC: NFND EXTREMITIES: No edema ASSESSMENT CHEST PAIN, CORONARY ARTERY DISEASE Negative troponins, EKG with ST-T wave changes at baseline No evidence of ST elevation myocardial infarction with stable EKG changes, 05/13/2024 On heparin, nitroglycerin, On Plavix beta-don statin aspirin CHRONIC KIDNEY DISEASE History of, creatinine greater than 3 PERIPHERAL VASCULAR DISEASE S/p left BKA HYPERTENSION, DIABETES, HYPERLIPIDEMIA CORE MEASURES good meds 04/2024 OTHER MEDICAL PROBLEMS Prior history of back surgery PLAN 05/13/[address] elevation myocardial infarction on EKG. Does not have ischemic changes with T wave inversions in the lateral leads and minimal ST segment changes in the anterior leads. For now, agree with heparin and nitro glycerin. Wean off nitroglycerin if pain is better, also received dose of morphine this morning. Given renal dysfunction, would risk stratify if enzymes remain negative with a stress test prior to considering cardiac catheterization if indicated. 05/14/2024 Renal function still elevated, will try to wean off nitroglycerin drip as unable to proceed with stress testing while on nitroglycerin. Not a good candidate for cardiac catheterization given renal injury risk and risk of dialysis which at this time, patient is hesitant about. Will try to get off nitroglycerin and still consider potentially stress testing to rule stratify agus or to considering contrast. Start isosorbide to potentially help come off nitroglycerin drip. Volume status is still acceptable. EF of 45 to 50% on echocardiogram. Currently on Nitropaste isosorbide Plavix beta-don statin aspirin. If he comes off nitroglycerin, would consider stress testing tomorrow. Seen and examined at around 10 AM. 05/15/2024 Continues have issues with atypical chest pain, sharp features, likely noncardiac but persistent pain, unable to get stress testing completed because of problems with the scanner. We do not do dobutamine studies or stress echoes here at [facility]. Attempted to transfer to [facility] but they are on diversion at this time. Underlying chronic kidney disease. Can wean off nitro drip as this is not helping Potentially may consider transferring to [facility] for stress test and then back. Trying to co ordinate. Symptomatic patient reports well. Troponins have all been negative. Seen and examined 05/15/2024 around 11:30 AM. ATTESTATION I was involved substantially in the care of this patient Number and complexity of problems addressed: 1 acute illness with systemic features Amount and or complexity of data Review of prior external note(s) from each unique source: 2+ Ordering of each unique test : 0 Review of the result(s) of each unique test: 2+ Assessment requiring an independent historian(s): No Independent interpretation of test performed by another MD/QHCP/appropriate source (not separately reported) : No Discussion of management or test interpretation with external MD/QHCP/appropriate source (not separately reported) : No Risk status (cardiac, billing related): Moderate Vitals/Labs Vital Signs Date Time Temp Pulse Resp B/P (MAP) Pulse Ox O2 Delivery O2 Flow Rate FiO2 05/15/24 09:57 144/75 05/15/24 06:00 74 11 99 05/15/24 04:00 98.4 05/14/24 19:30 Room Air* 0 21 Medications Current Medications Furosemide 40 mg ONCE ONCE IV Last administered on 05/12/24at 20:42; Start 05/12/24 at 20:00; Stop 05/12/24 at 20:01; Status DC Nitroglycerin 1 inch ONCE ONCE TD Last administered on 05/12/24at 20:42; Start 05/12/24 at 20:30; Stop 05/12/24 at 20:33; Status DC Morphine Sulfate 2 mg ONCE ONCE IVP Last administered on 05/12/24at 20:42; Start 05/12/24 at 20:30; Stop 05/12/24 at 20:31; Status DC Labetalol HCl 10 mg ONCE ONCE IV Last administered on 05/12/24at 22:21; Start 05/12/24 at 20:30; Stop 05/12/24 at 20:31; Status DC Acetaminophen 650 mg Q6H PRN PO Last administered on 05/13/24at 11:35; Start 05/12/24 at 21:00; Stop 06/11/24 at 20:59 Acetaminophen 650 mg Q4H PRN PO; Start 05/12/24 at 21:00; Stop 06/11/24 at 20:59 Ondansetron HCl 4 mg Q6H PRN IV; Start 05/12/24 at 21:00; Stop 06/11/24 at 20:59 Heparin Sodium (Porcine) 5,000 unit BID SQ Last administered on 05/12/24at 22:15; Start 05/12/24 at 21:00; Stop 05/13/24 at 03:49; Status DC Famotidine 20 mg Q48H PO Last administered on 05/15/24at 09:56; Start 05/13/24 at 09:00; Stop 06/12/24 at 08:59 Nitroglycerin 0.5 inch Q8H TD; Start 05/12/24 at 21:00; Stop 05/13/24 at 09:10; Status DC Insulin Human Regular INSULIN SLIDING SCAL... ACHS SQ; Start 05/12/24 at 21:00; Stop 06/11/24 at 20:59 Dextrose 50 ml AD PRN IV; Start 05/12/24 at 21:00; Stop 06/11/24 at 20:59 Glucagon 1 mg AD PRN IM; Start 05/12/24 at 21:00; Stop 06/11/24 at 20:59 Magnesium Sulfate 50 ml @ 0 mls/hr PROTOCOL PRN IV; Start 05/12/24 at 21:00; Stop 06/11/24 at 20:59 Potassium Chloride 100 ml @ 100 mls/hr AD PRN IV; Start 05/12/24 at 21:00; Stop 06/11/24 at 20:59 Potassium Chloride 10 meq AD PRN PO; Start 05/12/24 at 21:00; Stop 06/11/24 at 20:59 Potassium Chloride 10 meq AD PRN PO; Start 05/12/24 at 21:00; Stop 05/14/24 at 09:03; Status DC Hydralazine HCl 10 mg Q6H PRN IV Last administered on 05/14/24at 22:13; Start 05/12/24 at 21:00; Stop 06/11/24 at 20:59 Aspirin 81 mg DAILY PO Last administered on 05/15/24at 09:57; Start 05/13/24 at 09:00; Stop 06/12/24 at 08:59 Hydromorphone HCl 0.2 mg ONCE ONCE IVP Last administered on 05/12/24at 23:46; Start 05/12/24 at 23:30; Stop 05/12/24 at 23:31; Status DC Heparin Sodium/ Dextrose 250 ml @ 0 mls/hr PROTOCOL IV Last administered on 05/15/24at 11:22; Start 05/13/24 at 04:00; Stop 06/12/24 at 03:59 Nitroglycerin/ Dextrose 250 ml @ 0 mls/hr PROTOCOL IV Last administered on 05/14/24at 11:50; Start 05/13/24 at 04:00; Stop 06/12/24 at 03:59 Heparin Sodium (Porcine) 5,000 unit ONCE ONCE IV Last administered on 05/13/24at 04:11; Start 05/13/24 at 04:00; Stop 05/13/24 at 04:06; Status DC Clopidogrel Bisulfate 300 mg ONCE ONCE PO Last administered on 05/13/24at 04:38; Start 05/13/24 at 05:00; Stop 05/13/24 at 05:01; Status DC Morphine Sulfate 1 mg ONCE ONCE IVP Last administered on 05/13/24at 06:46; Start 05/13/24 at 06:30; Stop 05/13/24 at 06:31; Status DC Atorvastatin Calcium 20 mg HS PO Last administered on 05/13/24at 21:30; Start 05/13/24 at 21:00; Stop 05/14/24 at 10:21; Status DC Cefepime HCl 1 gm Q24H IVPB Last administered on 05/14/24at 12:07; Start 05/13/24 at 13:00; Stop 05/23/24 at 12:59 Doxycycline Hyclate 250 ml @ 125 mls/hr Q12H IV Last administered on 05/15/24at 09:58; Start 05/13/24 at 09:00; Stop 05/23/24 at 08:59 Diphenhydramine HCl 25 mg Q6H PRN IV; Start 05/13/24 at 09:00; Stop 06/12/24 at 08:59 Clopidogrel Bisulfate 75 mg DAILY PO Last administered on 05/15/24at 09:58; Start 05/14/24 at 09:00; Stop 06/13/24 at 08:59 Nitroglycerin 1 inch Q8H TD Last administered on 05/15/24at 09:57; Start 05/13/24 at 09:00; Stop 06/12/24 at 08:59 Sodium Chloride 4 ml STK-MED ONCE IH; Start 05/13/24 at 09:37; Stop 05/13/24 at 09:38; Status DC Iron Sucrose 300 mg/Sodium Chloride 250 ml @ 83 mls/hr ONCE ONCE IV Last admi nistered on 05/13/24at 21:30; Start 05/13/24 at 21:00; Stop 05/14/24 at 00:00; Status DC Epoetin Simon-epbx 10,000 unit ONCE ONCE SQ Last administered on 05/13/24at 16:17; Start 05/13/24 at 16:00; Stop 05/13/24 at 16:01; Status DC Metoprolol Tartrate 25 mg BID PO Last administered on 05/14/24at 08:14; Start 05/13/24 at 21:00; Stop 05/14/24 at 09:51; Status DC Metoprolol Tartrate 25 mg ONCE ONCE PO Last administered on 05/13/24at 12:22; Start 05/13/24 at 12:00; Stop 05/13/24 at 12:01; Status DC Furosemide 20 mg Q12H IV Last administered on 05/14/24at 08:13; Start 05/13/24 at 21:00; Stop 05/14/24 at 10:10; Status DC Potassium Chloride 10 meq AD PRN PO; Start 05/14/24 at 09:30; Stop 06/11/24 at 20:59 Carvedilol 12.5 mg BID PO Last administered on 05/15/24at 09:57; Start 05/14/24 at 21:00; Stop 06/13/24 at 20:59 Tamsulosin HCl 0.4 mg DAILY PO Last administered on 05/15/24at 09:56; Start 05/15/24 at 09:00; Stop 06/14/24 at 08:59 Atorvastatin Calcium 40 mg HS PO Last administered on 05/14/24at 20:27; Start 05/14/24 at 21:00; Stop 06/13/24 at 20:59 Isosorbide Mononitrate 60 mg DAILY PO Last administered on 05/15/24at 09:56; Start 05/14/24 at 11:00; Stop 06/13/24 at 10:59 Morphine Sulfate 1 mg Q6H6 PRN IVP Last administered on 05/15/24at 01:09; Start 05/14/24 at 11:00; Stop 05/21/24 at 10:59 Tamsulosin HCl 0.4 mg ONCE ONCE PO Last administered on 05/14/24at 11:49; Start 05/14/24 at 11:00; Stop 05/14/24 at 11:04; Status DC Morphine Sulfate 1 mg ONCE STAT IVP Last administered on 05/15/24at 03:38; Start 05/15/24 at 03:19; Stop 05/15/24 at 03:27; Status DC JOVANNY PITTS MD May 15, 2024 12:00
--- NOTE | 2024-05-15 12:22 | NUR ---
DR. PITTS COMMUNICATION MADE DR. MOTLEY AWARE PATIENT'S TRANSFER TO [facility] WAS DENIED DUE TO CAPICITY. PATIENT CURRENTLY ON NITRO DRIP AND HEPARIN DRIP. AWAITING FIXING OF LG SCAN [facility] FOR ORDERED LG SCAN. PER MD, HE WILL BE BY SOON.
--- NOTE | 2024-05-15 17:00 | NUR ---
PRIMARY NURSE MADE AWARE OF NUCLEAR MED [facility] FIXED STATES PT ATE SO LG SCAN TO BE DONE IN AM. NUCLEAR TECH MADE AWARE OF PENDING LG SCAN STATES IT CAN BE DONE TOMORROW TECH WILL BE IN AT 8AM. SALO BERNABE
--- NOTE | 2024-05-15 17:00 | NUR ---
TRANSFER FOLLOW UP PER PRIMARY NURSE TRANSFER CAN BE CANCEL. SALO GERARDO
--- NOTE | 2024-05-15 20:23 | PN ---
INFECTIOUS DISEASE FOLLOWUP NOTE DATE OF SERVICE: 05/15/2024 SUBJECTIVE: The patient is seen and examined at bedside. Remained in the ICU. Still complaining of chest pain. The patient ____ stress test. The patient is not a candidate for cardiac catheterization due to renal failure. No dysuria or hematuria. No palpitation, no orthopnea. PHYSICAL EXAMINATION: VITAL SIGNS: Temperature today 98.4. EYES: No icterus. Pupils equal and reactive. HENT: No oral thrush seen. Moist oral mucosa. NECK: Supple. No JVD, no thyromegaly. LUNGS: Good air entry. No rales, no rhonchi. CARDIOVASCULAR: S1, S2 regular. No murmur heard. ABDOMEN: Full, soft, nontender. Bowel sounds present. CENTRAL NERVOUS SYSTEM: Awake, alert, oriented x 3. No focal deficits. SKIN: No rashes, no itchiness. LYMPHATIC: No peripheral lymphadenopathy. HEMATOLOGIC: No bleeding or petechial lesions seen. ASSESSMENT: A 58-year-old male with multiple problems which include: * Pneumonia. * Hypoxic respiratory failure. * Heart failure. * Acute renal failure. * Hypertension. * Diabetes mellitus. PLAN: * Continue cefepime. * Continue doxycycline. * Continue antiplatelet. * Continue antihypertensive. * Continue nutritional support. * Monitor electrolytes. * Monitor renal function. * Avoid nephrotoxic medication. TID: [id number] RECEIPT: [id number]
--- NOTE | 2024-05-15 20:28 | NUR ---
Patient wants to be carried to bedside commode since patient has a LBKA. Patient is not weight bearing on right foot. Patient was admitted for unstable angina and pneumonia. Educated patient that bedrest was ordered, and fall precautions. Patient stated that if we are not able to carry him that his will. Educated patient that is not safe considering that he was receiving heparin, and that the physical activity would put strain on his heart. Patient refused to sign refusal to submit to medical treatment form due to not wanting to follow fall precautions and bedrest orders. Liang charge nurse was present. Called [facility] and informed them of the situation. Patient states he is not able to urinate in the urinal. A bladder scan was ordered and to straight cath patient if more than 400 ml in the bladder. Scanned patients bladder, patient had more than 637 ml of urine. Provider also ordered flomax one time dose 0.4 mg capsule PO. Provider wants bladder scanned q6hrs and to straight cath if more than 400 mls. Spoke to Evin from [facility].
--- NOTE | 2024-05-15 20:42 | PN ---
[facility] PROGRESS NOTE Date Patient Seen: May 15, 2024 Time of Visit: 0936 Supervising Physician: Dr. GONZALES Primary Care Physician: none Outpatient Specialists: Inpatient Consults: [facility], Cardiology DR Fitzgerald Attending: Enoc Massey MD PROBLEM LIST: Acute on chronic stage II diastolic dysfunction with LVEF of 45-50% POA Gram + and Gram -, Multifocal bacterial pneumonia, POA Unstable angina requiring nitroglycerin drip JOSEP on CKD stage 3, POA Chronic Normocytic anemia, POA PVD status post left BKA Hypertension Hyperglycemia in the presence of Type 2 diabetes mellitus A1C 8.0 Hyperlipidemia CAD status post stent placement x3 INTERVAL HISTORY: 05/14/24-patient is awake alert and oriented x3. He reports that overnight he had mild chest pain 5/10 and was restarted on nitroglycerin drip. Now continues with nitroglycerin drip at 30 micrograms/minute, heparin drip at 11 units/kilogram per hour. He is pain-free at this time. He is hemodynamically stable saturating 99% on room air in no apparent distress. Patient reports good urine output. CBC unremarkable similar to yesterday. Creatinine of 3.5 GFR of 19 slightly worsened than yesterday. Holding diuretics. will continue to follow cardiology recommendations. 05/15/2024: At the time of my evaluation, the patient was lying in bed. He was awake alert and oriented x3. Staff nurse reports no acute event overnight. The patient was breathing with nasal cannula at 2 liters/minute. He denies any shortness of breath. The patient was complaining of chest pain. Troponins are trending negative. 2D echo showed a LVEF of 45-50% stage II diastolic dysfunction. Currently, the patient is awaiting to undergo a Lexiscan. He con tinues on a nitroglycerin drip The patient is currently NPO for his pending procedure, but feeding orally. No new chemistry data for review today. In his spontaneously voiding and over the past recommended 24 hour had a total urinary output of 1775, with a net balance of -807.1 which constitutes and average urinary output of 1.06 mL/kg/hr. No hematology data for review today. Most recent PTT of 58.0. The patient remains on a heparin drip. The staff nurse reports no acute events overnight. No other aint. REVIEW OF SYSTEMS: 12 point ROS reviewed with patient. Pertinent positives mentioned above. Otherwise negative. PHYSICAL EXAM: GENERAL: alert, weak, awake oriented x 3 HEENT: EOMI, Sclera non icteric, moist mucosa NECK: Supple, no JVD, trachea midline LUNGS: Clear breath sounds bilaterally. No wheezes HEART: Regular rate and rhythm. Normal S1 and S2, without murmurs ABD: Abdomen soft, nontender. Bowel sounds present EXT: No clubbing cyanosis or edema NEURO: Alert and oriented to person, follows commands Vital Signs (last 8hr) Date Time Temp Pulse Resp B/P (MAP) Pulse Ox O2 Delivery O2 Flow Rate FiO2 05/15/24 18:15 74 10 133/65 (87) 100 05/15/24 18:00 73 12 132/68 (89) 100 05/15/24 17:45 74 9 136/75 (95) 100 05/15/24 17:30 72 10 139/69 (92) 100 05/15/24 17:15 74 9 162/114 (130) 100 05/15/24 17:00 73 10 133/73 (93) 100 05/15/24 16:45 74 17 117/65 (82) 100 05/15/24 16:30 74 9 139/73 (95) 100 05/15/24 16:15 74 9 141/72 (95) 99 05/15/24 16:00 72 8 135/74 (94) 100 05/15/24 16:00 97.9 05/15/24 16:00 100 Nasal Cannula* 2 28 05/15/24 15:45 72 10 141/72 (95) 100 05/15/24 15:30 72 11 124/67 (86) 99 05/15/24 15:15 72 10 137/72 (93) 100 05/15/24 15:00 73 9 134/73 (93) 100 05/15/24 14:45 72 11 123/67 (85) 100 05/15/24 14:30 71 10 123/66 (85) 99 05/15/24 14:15 71 9 127/67 (87) 100 05/15/24 14:00 70 13 108/58 (75) 99 05/15/24 13:50 106/65 05/15/24 13:45 72 14 113/56 (75) 99 05/15/24 13:35 71 10 106/65 (79) 100 05/15/24 13:30 72 13 120/57 (78) 100 05/15/24 13:15 71 15 124/66 (85) 100 05/15/24 13:00 71 12 117/64 (81) 100 05/15/24 12:45 71 11 121/63 (82) 98 05/15/24 12:30 72 12 112/64 (80) 100 LABS: Hematology Labs: Test 05/14/24 03:24 Range/Units White Blood Count 8.2 4.8-10.8 K/uL Red Blood Count 3.20 L 4.50-6.20 MIL/uL Hemoglobin 9.7 L 14.0-18.0 g/dL Hematocrit 29.3 L 42-54 % Mean Corpuscular Volume 91.6 79-99 fL Mean Corpuscular Hemoglobin 30.3 27.0-33.0 pg Mean Corpuscular Hemoglobin Concent 33.1 32.0-36.0 g/dL Red Cell Distribution Width 13.4 11.0-15.5 % Platelet Count 259 130-400 K/uL Mean Platelet Volume 10.2 7.5-10.5 fL Immature Granulocyte % (Auto) 0.4 0-1 % Neutrophils (%) (Auto) 54.1 40.0-77.0 % Lymphocytes (%) (Auto) 28.6 21.0-51.0 % Monocytes (%) (Auto) 9.9 3.0-13.0 % Eosinophils (%) (Auto) 6.0 0.0-8.0 % Basophils (%) (Auto) 1.0 0.0-5.0 % Neutrophils # (Auto) 4.4 1.8-7.7 K/uL Lymphocytes # (Auto) 2.3 1.0-4.8 K/uL Monocytes # (Auto) 0.8 0.1-1.0 K/uL Eosinophils # (Auto) 0.49 0.00-0.70 K/uL Basophils # (Auto) 0.08 0.00-0.20 K/uL Absolute Immature Granulocyte (auto 0.03 0-1 K/uL Nucleated Red Blood Cells 0.0 0.0-0.19 % Chemistry Labs: Test 05/15/24 17:27 05/15/24 10:08 05/14/24 04:27 05/14/24 03:24 Range/Units Whole Blood Glucose 92 70-110 MG/DL Troponin I High Sensitivity 27 4-75 ng/L Parathyroid Hormone (Intact) 133.4 15-65 pg/mL Sodium Level 140 136-145 mmol/L Potassium Level 4.3 3.5-5.1 mmol/L Chloride Level 108 101-111 mmol/L Carbon Dioxide Level 26 21-32 mmol/L Blood Urea Nitrogen 43 H 7-18 mg/dL Creatinine 3.5 H 0.5-1.3 mg/dL Glomerular Filtration Rate Calc 19 >90 mL/min Random Glucose 116 H 70-105 mg/dL Total Calcium 8.4 L 8.5-10.1 mg/dL Phosphorus Level 4.6 2.5-4.9 mg/dL Magnesium Level 2.00 1.80-2.40 mg/dL Procalcitonin 0.10 0.05-0.5 ng/mL Coagulation Labs: Test 05/15/24 03:56 Range/Units Activated Partial Thromboplast Time 58.0 H 26.3-35.5 SEC DIAGNOSTICS / RADIOLOGY RESULTS: [ ] PLAN Acute on chronic stage II diastolic dysfunction with LVEF of 45-50% POA -I&O Q 1 hour -fluid restriction of 1500 -daily weights Multifocal bacterial pneumonia, POA -empiric coverage for cap-cefepime and dioxide -MRSA swab, influenza swab and COVID-19 swab. -sputum culture Unstable angina -nitroglycerin drip -per cardiology recs -HEART Score 5 points (Moderate Score) -heparin drip -aspirin, Plavix, statin, beta don JOSEP on CKD stage 3, POA -avoid nephrotoxic agents Chronic Normocytic anemia, POA -likely from CKD -monitor H&H -monitor for bleeding PVD status post left BKA -continue antiplatelet Hypertension -nitro drip, p.r.n. hydralazine Hyperglycemia in the presence of Type 2 diabetes mellitus A1C 8.0 -ISS Hyperlipidemia -continue atorvastatin CAD status post stent placement x3 -continue Plavix and aspirin 05/15/2024: For now, going to continue current management for the patient we will continue monitoring his respiratory status and adjust as necessary. He will continue on nitroglycerin and heparin drip while he awaits his Lexiscan that is ordered to be completed today. We will follow the results of this study also the recommendation of the Cardiology team. As previously mentioned troponins are negative and patient continues complaint of chest pain. Postprocedure, the patient will return to feeding orally on a heart healthy diet. We will monitor the I's and O's. We will continue monitoring for any bleed and tract the PTT. The patient is currently on antibiotic therapy with doxycycline and cefepime due to multifocal bacterial Pneumonia. We will continue to provide general supportive care, GI and DVT prophylaxis. We will follow the patient response to management. Further orders per attending MD and hospital course. NEURO: Minimize central acting medications as possible. Fall Precautions. Well lighted room through the day and minimize interruptions through the night to prevent acute delirium. PULMONARY: Supplemental 02 as needed Titrate Fio2 to keep Spo2 > or = 90% DuoNebs and CPT as needed IS hourly while awake for pulmonary hygiene Out of bed to chair as tolerated CARDIOVASCULAR: Follow hemodynamics. Titrate vasopressor to keep MAP >65 or systolic blood pressure >95mmHg Drips: Heparin Nitroglycerin LINES: PIV GI & NUTRITION: Continue nutritional support Aspirations precautions Prokinetic agents and laxatives as needed Heart has been diet KIDNEYS & ELECTROLYTES: Strict monitoring of intake and output Daily weights Avoid nephrotoxic agents Monitor electrolytes and replace as needed Goal urine output of 30mL/hr or 0.5mL/kg/hr Urine output: [ ] Fluid Balance: [ ] ENDOCRINE: Maintain blood glucose between 100-180 at all times. Insulin sliding scale for blood glucose management ISS INFECTIOUS DISEASE: Trend temperature. Kenny-culture if febrile. Micro: [ ] Respiratory culture Antibiotics: [ ] Cefepime and doxy HEMATOLOGY & COAGULATION: Monitor H&H. Keep Hgb > 7 Transfuse 1 unit of PRBC for Hgb < 7 Transfuse 1 pack of platelets of platelets < 20, 000 Watch for any signs and symptoms of bleeding SKIN: Pressure ulcer prevention per facility protocol Rehab: PT/OT Prophylaxis: GI: Protonix DVT: Heparin drip Code Status: Full Resuscitation Disposition: ICU Other: Total patient care time exceeds 35 minutes excluding all procedures. Case was discussed and seen with my supervising physician. The above plan was formulated and agreed upon. BEN GAXIOLA NP May 15, 2024 20:42
--- NOTE | 2024-05-15 21:00 | NUR ---
PATIENT HAD 623 ML PER BLADDER SCAN. PATIENT WAS STRAIGHT CATHED UTLIZING STERILE TECHNIQUE AND 500 MLS OF URINE REMOVED.
[2024-05-15] MEDS: tamSULOsin HCL 0.4 MG CAP.ER.24H PO ONE (21:32)
[2024-05-16] VITALS (33 sets, daily range): BP systolic 138–161; BP diastolic 65–97; PULSE 75–83; RESP 10–20; TEMP 97.7–98.7; O2SAT 96–100
[2024-05-16 04:23] LABS: BASOPHILS # (AUTO) 0.07 K/uL (0.00-0.20); BASOPHILS % (AUTO) 0.9 % (0.0-5.0); EOSINOPHILS # (AUTO) 0.44 K/uL (0.00-0.70); EOSINOPHILS % (AUTO) 5.7 % (0.0-8.0); HEMATOCRIT 27.8 % (42-54); IMMATURE GRANULOCYTE ABSOLUTE 0.04 K/uL (0-1); LYMPHOCYTES # (AUTO) 2.7 K/uL (1.0-4.8); LYMPHOCYTES % (AUTO) 35.2 % (21.0-51.0); MEAN CORPUSCULAR HEMOGLOBIN 29.8 pg (27.0-33.0); MEAN CORPUSCULAR HGB CONC 31.7 g/dL (32.0-36.0); MEAN CORPUSCULAR VOLUME 94.2 fL (79-99); MONOCYTES % (AUTO) 13.6 % (3.0-13.0); NEUTROPHILS # (AUTO) 3.4 K/uL (1.8-7.7); NEUTROPHILS % (AUTO) 44.1 % (40.0-77.0); PLATELET COUNT (AUTO) 237 K/uL (130-400); RED BLOOD CELL COUNT(AUTO) 2.95 MIL/uL (4.50-6.20); RED CELL DISTRIBUTION WIDTH 13.8 % (11.0-15.5); WHITE BLOOD COUNT (AUTO) 7.7 K/uL (4.8-10.8)
[2024-05-16 04:36] LABS: CREATININE 3.5 mg/dL (0.5-1.3); PHOSPHORUS 4.6 mg/dL (2.5-4.9); POTASSIUM 4.2 mmol/L (3.5-5.1)
[2024-05-16] MEDS: DEXTROSE 50%-WATER 50 ML DISP.SYRIN IV PRN (06:37)
--- NOTE | 2024-05-16 07:30 | NUR ---
ACCOMPANIED PT TO NUCLEAR MED DEPT FOR [facility]
[2024-05-16] MEDS ORDERED: REGADENOSON 0.4 MG/5 ML PF SYG IVP ONE (08:15)
--- NOTE | 2024-05-16 09:02 | PN ---
[facility] PROGRESS NOTE Date Patient Seen: May 16, 2024 Time of Visit: 10:01 Supervising Physician: Sergey Nunn MD Primary Care Physician: none Outpatient Specialists: Inpatient Consults: [facility], Cardiology DR Fitzgerald Attending: Enoc Massey MD PROBLEM LIST: Acute on chronic stage II diastolic dysfunction with LVEF of 45-50% POA, resolving Gram + and Gram -, Multifocal bacterial pneumonia, POA +Yeast Species sputum Unstable angina requiring nitroglycerin drip CKD stage 3, POA, Baseline Chronic Normocytic anemia, POA PVD status post left BKA Hypertension Hyperglycemia in the presence of Type 2 diabetes mellitus A1C 8.0 Hyperlipidemia CAD status post stent placement x3 INTERVAL HISTORY: Patient is awake alert and oriented x3. He is off nitroglycerin drip. No major overnight events. Patient denies chest pain palpitations or shortness and breath at this time. He is hemodynamically stable and afebrile. Saturating 95% on room air. Urine output 1.2 L yesterday and today 650 mL. Patient may be downgraded from ICU. From pulmonology standpoint patient is cleared for discharge. Continue to follow cardiology recommendations. aint. REVIEW OF SYSTEMS: 12 point ROS reviewed with patient. Pertinent positives mentioned above. Otherwise negative. PHYSICAL EXAM: GENERAL: alert, weak, awake oriented x 3 HEENT: EOMI, Sclera non icteric, moist mucosa NECK: Supple, no JVD, trachea midline LUNGS: Clear breath sounds bilaterally. No wheezes HEART: Regular rate and rhythm. Normal S1 and S2, without murmurs ABD: Abdomen soft, nontender. Bowel sounds present EXT: No clubbing cyanosis or edema NEURO: Alert and oriented to person, follows commands Vital Signs (last 8hr) Date Time Temp Pulse Resp B/P (MAP) Pulse Ox O2 Delivery O2 Flow Rate FiO2 05/16/24 06:45 78 15 156/78 95 05/16/24 06:30 78 15 149/73 93 05/16/24 06:15 79 17 153/97 94 05/16/24 06:00 79 17 149/65 94 05/16/24 05:48 81 17 143/95 97 05/16/24 05:00 76 17 144/73 100 05/16/24 04:45 77 17 156/74 100 05/16/24 04:30 97.9 76 14 146/70 100 05/16/24 04:15 76 17 145/72 100 05/16/24 04:00 76 14 147/71 100 05/16/24 04:00 100 Nasal Cannula* 2 28 05/16/24 03:45 79 16 141/66 99 05/16/24 03:30 78 16 149/73 100 05/16/24 03:15 78 16 151/76 100 05/16/24 03:00 81 16 161/78 100 05/16/24 02:45 82 16 148/77 100 05/16/24 02:30 78 14 140/73 100 05/16/24 02:15 77 14 143/72 100 LABS: Hematology Labs: Test 05/16/24 03:59 Range/Units White Blood Count 7.7 4.8-10.8 K/uL Red Blood Count 2.95 L 4.50-6.20 MIL/uL Hemoglobin 8.8 L 14.0-18.0 g/dL Hematocrit 27.8 L 42-54 % Mean Corpuscular Volume 94.2 79-99 fL Mean Corpuscular Hemoglobin 29.8 27.0-33.0 pg Mean Corpuscular Hemoglobin Concent 31.7 L 32.0-36.0 g/dL Red Cell Distribution Width 13.8 11.0-15.5 % Platelet Count 237 130-400 K/uL Mean Platelet Volume 10.3 7.5-10.5 fL Immature Granulocyte % (Auto) 0.5 0-1 % Neutrophils (%) (Auto) 44.1 40.0-77.0 % Lymphocytes (%) (Auto) 35.2 21.0-51.0 % Monocytes (%) (Auto) 13.6 H 3.0-13.0 % Eosinophils (%) (Auto) 5.7 0.0-8.0 % Basophils (%) (Auto) 0.9 0.0-5.0 % Neutrophils # (Auto) 3.4 1.8-7.7 K/uL Lymphocytes # (Auto) 2.7 1.0-4.8 K/uL Monocytes # (Auto) 1.0 0.1-1.0 K/uL Eosinophils # (Auto) 0.44 0.00-0.70 K/uL Basophils # (Auto) 0.07 0.00-0.20 K/uL Absolute Immature Granulocyte (auto 0.04 0-1 K/uL Nucleated Red Blood Cells 0.0 0.0-0.19 % Chemistry Labs: Test 05/16/24 06:39 05/16/24 03:59 05/15/24 10:08 Range/Units Whole Blood Glucose 138 #H 70-110 MG/DL Sodium Level 144 136-145 mmol/L Potassium Level 4.2 3.5-5.1 mmol/L Chloride Level 112 H 101-111 mmol/L Carbon Dioxide Level 21 21-32 mmol/L Blood Urea Nitrogen 41 H 7-18 mg/dL Creatinine 3.5 H 0.5-1.3 mg/dL Glomerular Filtration Rate Calc 19 >90 mL/min Random Glucose 61 L 70-105 mg/dL Total Calcium 8.5 8.5-10.1 mg/dL Phosphorus Level 4.6 2.5-4.9 mg/dL Troponin I High Sensitivity 27 4-75 ng/L Coagulation Labs: Test 05/16/24 03:59 Range/Units Activated Partial Thromboplast Time 29.1 26.3-35.5 SEC DIAGNOSTICS / RADIOLOGY RESULTS: [ ] [address] [address] IMAGING REPORT Signed PATIENT: CHRISTEL LEONG MR#: [id number] : 1965 SEX: M AGE: 58 LOCATION: [facility] ORDER [id number] STATUS: ADM IN REPORT#: [id number] SERVICE 0800 REASON: CHEST PAIN ORDERING PHYSICIAN: JOVANNY FITZGERALD MD PROCEDURE: CARD LG - NM LEXISCAN CARDIOLITE APPROVED REPORT Height: 5 ft 8in Weight: 153 lbs TEST INDICATIONS Chest Pain The imaging protocol used to acquire images was Rest Tc-99m/stress Tc-99m 1 day Consent: The procedure was explained and understood by the patient. Informerd consent was witnessed by Simba Peter RN First, low dose rest was performed then high dose stress. RESTING DATA: The resting ekg shows: nsr Rest SPECT myocardial perfusion imaging was performed in supine position minutes following the intravenous injection of 10 mCi of Tc-99 Sestamibi. Time of rest injection: Date: 05/16/2024 Time of rest imaging: Date: 05/16/2024 PHARMACOLOGIC STRESS: Pharmacologic stress test was performed by injecting regadenoson 0.4 mg IV push followed by the intravenous injection of 29 mCi of Tc-99 Sestamibi. Time of stress injection: Date: 05/16/2024 Time of stress imaging: Date: 05/16/2024 Heart Rate at time of stress injection: 79 bpm. The images were gated to evaluate regional wall motion and calculate left ventricular ejection fraction. STRESS DETAILS Reason for Termination: Infusion complete Stress Symptoms: Dyspnea Max HR Achieved: 86 bpm % of APMHR Achieved: 63 Max Blood Pressure: 153/80 mmHg Stress ECG: nsr LV PERFUSION Primary fixed defect of the inferolateral wall suggestive of previous infarction. There is mild doug-infarct ischemia. Reverse used effusion artifact noted of the inferior wall as well. EF of 56% Low risk stress test as above. DICTATED BY: JOVANNY FITZGERALD MD DATE: 05/16/24 0706 ELECTRONICALLY SIGNED BY: JOVANNY FITZGERALD MD DATE: 05/16/24 1245 PLAN Per Lexiscan stress test low risk Continue-aspirin, Plavix, statin, beta don CKD stage 3, POA -avoid nephrotoxic agents Chronic Normocytic anemia, POA -likely from CKD PVD status post left BKA -continue antiplatelet Hypertension Continue antihypertensive medications. Hyperlipidemia -continue atorvastatin CAD status post stent placement x3 -continue Plavix and aspirin NEURO: Minimize central acting medications as possible. Fall Precautions. Well lighted room through the day and minimize interruptions through the night to prevent acute delirium. PULMONARY: Supplemental 02 as needed Titrate Fio2 to keep Spo2 > or = 90% DuoNebs and CPT as needed IS hourly while awake for pulmonary hygiene Out of bed to chair as tolerated CARDIOVASCULAR: Follow hemodynamics. Titrate vasopressor to keep MAP >65 or systolic blood pressure >95mmHg Drips: none LINES: PIV GI & NUTRITION: Continue nutritional support Aspirations precautions Prokinetic agents and laxatives as needed Heart has been diet KIDNEYS & ELECTROLYTES: Strict monitoring of intake and output Daily weights Avoid nephrotoxic agents Monitor electrolytes and replace as needed Goal urine output of 30mL/hr or 0.5mL/kg/hr Urine output: [ ] Fluid Balance: [ ] ENDOCRINE: Maintain blood glucose between 100-180 at all times. Insulin sliding scale for blood glucose management ISS INFECTIOUS DISEASE: Trend temperature. Kenny-culture if febrile. Micro: [ ] Respiratory culture Antibiotics: [ ] Cefepime and doxy HEMATOLOGY & COAGULATION: Monitor H&H. Keep Hgb > 7 Transfuse 1 unit of PRBC for Hgb < 7 Transfuse 1 pack of platelets of platelets < 20, 000 Watch for any signs and symptoms of bleeding SKIN: Pressure ulcer prevention per facility protocol Rehab: PT/OT Prophylaxis: GI: Protonix DVT: Heparin drip Code Status: Full Resuscitation Disposition: per primary team Other: Total patient care time exceeds 35 minutes excluding all procedures. Case was discussed and seen with my supervising physician. The above plan was formulated and agreed upon. EULA WHITE May 16, 2024 09:02
[2024-05-16] MEDS: PANTOPrazole 40 MG/VIAL IVP SCH (09:35)
[2024-05-16] MEDS: HEParin 5,000 UNIT VIAL SQ SCH (09:55)
--- NOTE | 2024-05-16 10:24 | NUR ---
ABRILAN COMPLETED NOW BACK IN ROOM. NO ACUTE CHANGES NOTED
--- NOTE | 2024-05-16 11:41 | PN ---
SUBJECTIVE: A 58-year-old male with a history of diabetes mellitus and hypertension. He initially presented with underlying chest pain. The patient's cardiac workup is ongoing. The patient with evidence of significant renal dysfunction. Workup is consistent with diabetic nephropathy. Creatinine has remained fairly stable and he is being seen as a followup visit for all of the above. REVIEW OF SYSTEMS: GENERAL: He is feeling weak and tired. HEENT: No change in vision. No change in hearing. CARDIOVASCULAR: No current chest pains or palpitations. PULMONARY: No shortness of breath. GASTROINTESTINAL: He is tolerating a diet. MUSCULOSKELETAL: Complains of weakness. PHYSICAL EXAMINATION: VITAL SIGNS: Blood pressure 144/73, pulse 80s. GENERAL: He is a chronically ill male, older than appearing. HEENT: Head is atraumatic. Pupils equal, roving to light. Oropharynx is without exudate. Nares clear. NECK: There is no JVP. There is no thyromegaly, no mass. CARDIOVASCULAR: Regular. There is no S3, S4 gallop. LUNGS: Coarse with equal thoracic movement. ABDOMEN: Soft, nondistended, nontender. EXTREMITIES: Reveal no clubbing, no cyanosis. NEUROLOGIC: He is awake. He is alert. LABORATORY DATA: Sodium 144, potassium 4.2, BUN 41, creatinine is 3.5. Hemoglobin 8.8, hematocrit 27. IMPRESSION: * Advanced renal dysfunction. * Diabetic nephropathy. * Hypertension. * Coronary artery disease. PLAN: The patient's creatinine of 3.5 mg essentially the patient's baseline. The patient does have significant renal dysfunction. There is no need for any form of renal replacement therapy at this time. The patient's cardiac workup is ongoing. The patient and family at the bedside. Multiple questions were answered. TID: [id number] RECEIPT: [id number]
--- NOTE | 2024-05-16 12:45 | HMCSR ---
APPROVED REPORT Height: 5 ft 8in Weight: 153 lbs TEST INDICATIONS Chest Pain The imaging protocol used to acquire images was Rest Tc-99m/stress Tc-99m 1 day Consent: The procedure was explained and understood by the patient. Informerd consent was witnessed Sivan Peter RN First, low dose rest was performed then high dose stress. RESTING DATA: The resting ekg shows: nsr Rest SPECT myocardial perfusion imaging was performed in supine position minutes following the intra venous injection of 10 mCi of Tc-99 Sestamibi. Time of rest injection: Date: 05/16/2024 Time of rest imaging: Date: 05/16/2024 PHARMACOLOGIC STRESS: Pharmacologic stress test was performed by injecting regadenoson 0.4 mg IV push followed by the intra venous injection of 29 mCi of Tc-99 Sestamibi. Time of stress injection: Date: 05/16/2024 Time of stress imaging: Date: 05/16/2024 Heart Rate at time of stress injection: 79 bpm. The images were gated to evaluate regional wall motion and calculate left ventricular ejection fracti on. STRESS DETAILS Reason for Termination: Infusion complete Stress Symptoms: Dyspnea Max HR Achieved: 86 bpm % of APMHR Achieved: 63 Max Blood Pressure: 153/80 mmHg Stress ECG: nsr LV PERFUSION Primary fixed defect of the inferolateral wall suggestive of previous infarction. There is mild doug -infarct ischemia. Reverse used effusion artifact noted of the inferior wall as well. EF of 56% Low risk stress test as above.
--- NOTE | 2024-05-16 13:52 | NUR ---
URINARY RETENTION NOTED- VOIDED 100ML- POST VOID BLADDER SCAN> 541ML. BLADDER DISTENTION NOTED WITH PALPATION. WILL INSERT SONG [place]
--- NOTE | 2024-05-16 13:58 | PN ---
[facility] PROGRESS NOTE Date of Service: May 16, 2024 Time of Service: 13:29 SUBJECTIVE: 58-year-old male with past medical history of essential hypertension, diabetes mellitus type 2, CAD with cardiac stent x3, hyperlipidemia, CHF, anemia of chronic disease and CKD with a admitted yesterday evening in to the PCCU with diagnosis of unstable angina, acute diastolic heart failure. Patient originally presented with chest pain and shortness of breath with and without exertion, orthopnea for approximately one week. Nephrology and cardiology teams consulted. 2D echo and CT chest are pending. Today at bedside evaluation patient's blood pressure continues to be elevated with latest at 165/70, the rest of his vitals are stable, he was satting 98% on room air. CBC is stable with H&H at 9.7/29.1, BUN is 43, creatinine 3.3, hemoglobin A1c 8, calcium 8.1, last night BNP is 1210. We are still pending CT chest and 2D echo. Continue strict intake and output, daily weights, fluid restriction 1.2 L/daily. Continue dual antiplatelet therapy with aspirin, Plavix. Continue IV cefepime and doxycycline cover empirically. Discussed case with Dr. Michel, planning stress test, possibly tomorrow. Continue heparin and nitroglycerin drips. 05/14 Patient is resting comfortably in bed. He reports mild chest pain but is otherwise resting comfortably. Continues on nitro drip. 05/15 Patient reports persistent mild chest pain. Patient continues on nitro and heparin drip. 05/16 REVIEW OF SYSTEMS CONSTITUTIONAL: Denies fevers, chills, or night sweats. No unintentional weight loss reported. NEUROLOGICAL: Denies headache, amaurosis fugax, motor weakness, sensory deficit, vertigo/spinning sensation, gait abnormalities, or tremors. ENT: No hearing loss, otalgia, otorrhea, rhinitis, rhinorrhea, hoarseness, or sore throat. CARDIOVASCULAR: Positive chest pain, orthopnea and paroxysmal nocturnal dyspnea Denies palpitations, life-threatening arrhythmias, claudication. PULMONARY: Positive shortness of breaths Denies cough, phlegm/sputum, hemoptysis, pleuritic chest pain. SLEEP: Denies morning headaches, daytime somnolence or napping. Denies difficulty falling asleep, staying asleep, waking from sleep. Denies knowledge of snoring. GASTROINTESTINAL: Denies any type of dysphagia to either liquids or solids. Denies nausea, vomiting, pyrosis, early satiety, abdominal pain, diarrhea, constipation, or changes in stool consistency or caliber. Denies coffee-ground emesis, hematemesis, hematochezia, or melanotic stools. GENITOURINARY: Denies frequency, urgency, nocturia, hematuria or incontinence (Storage/Irritative symptoms.) Low urinary stream, straining to void, urinary intermittency or hesitancy, splitting of the voiding stream, terminal dribbling. ENDOCRINOLOGIC: Denies polyuria, polydipsia, polyphagia or heat/cold intolerances. HEMATOLOGIC: Denies thrombophilia/previous clots, or coagulopathy/bleeding disorders. ONCOLOGIC: Denies personal history of malignancy. DERMATOLOGIC: Denies rashes or pruritus. PSYCHIATRIC: Denies any suicidal or homicidal ideation. Denies hallucinations. PHYSICAL EXAM GENERAL APPEARANCE: The patient is awake, alert, and oriented, in no acute cardiopulmonary distress. NEUROLOGICAL: Cranial nerves II-XII grossly intact. Motor is 5/5 in bilateral upper and lower extremities proximal to distal. No sensory deficits. HEENT: Face is symmetric. Pupils are equal and reactive. Extraocular movements are intact. NECK: Supple. No JVD. No thyromegaly. No submental, submandibular, pre- /postauricular, occipital or supraclavicular lymphadenopathy. CHEST: Normal chest expansion. No Telemetry. LUNGS: Absence of any rales, rhonchi or any wheezing. CARDIOVASCULAR: Regular. S1 and S2 normal. No appreciable rubs, murmurs or gallops. ABDOMEN: Soft, nontender, and nondistended. There is no rebound, voluntary guarding, or rigidity. : Deferred. No Givens. EXTREMITIES: Trace edema to bilateral lower extremities SKIN: No skin breakdown. Vital Signs (last 8hr) Date Time Temp Pulse Resp B/P (MAP) Pulse Ox O2 Delivery O2 Flow Rate FiO2 05/16/24 10:00 83 20 148/82 96 05/16/24 09:36 147/72 05/16/24 09:00 98.8 81 11 144/73 96 05/16/24 08:00 96 Room Air* 0 21 05/16/24 07:00 77 10 155/77 99 05/16/24 06:45 78 15 156/78 95 2/19/25 06:30 78 15 149/73 93 05/16/24 06:15 79 17 153/97 94 05/16/24 06:00 79 17 149/65 94 05/16/24 05:48 81 17 143/95 97 LABS: Laboratory: Test 05/16/24 12:01 05/16/24 03:59 05/15/24 10:08 Range/Units Whole Blood Glucose 133 H 70-110 MG/DL White Blood Count 7.7 4.8-10.8 K/uL Red Blood Count 2.95 L 4.50-6.20 MIL/uL Hemoglobin 8.8 L 14.0-18.0 g/dL Hematocrit 27.8 L 42-54 % Mean Corpuscular Volume 94.2 79-99 fL Mean Corpuscular Hemoglobin 29.8 27.0-33.0 pg Mean Corpuscular Hemoglobin Concent 31.7 L 32.0-36.0 g/dL Red Cell Distribution Width 13.8 11.0-15.5 % Platelet Count 237 130-400 K/uL Mean Platelet Volume 10.3 7.5-10.5 fL Immature Granulocyte % (Auto) 0.5 0-1 % Neutrophils (%) (Auto) 44.1 40.0-77.0 % Lymphocytes (%) (Auto) 35.2 21.0-51.0 % Monocytes (%) (Auto) 13.6 H 3.0-13.0 % Eosinophils (%) (Auto) 5.7 0.0-8.0 % Basophils (%) (Auto) 0.9 0.0-5.0 % Neutrophils # (Auto) 3.4 1.8-7.7 K/uL Lymphocytes # (Auto) 2.7 1.0-4.8 K/uL Monocytes # (Auto) 1.0 0.1-1.0 K/uL Eosinophils # (Auto) 0.44 0.00-0.70 K/uL Basophils # (Auto) 0.07 0.00-0.20 K/uL Absolute Immature Granulocyte (auto 0.04 0-1 K/uL Nucleated Red Blood Cells 0.0 0.0-0.19 % Activated Partial Thromboplast Time 29.1 26.3-35.5 SEC Sodium Level 144 136-145 mmol/L Potassium Level 4.2 3.5-5.1 mmol/L Chloride Level 112 H 101-111 mmol/L Carbon Dioxide Level 21 21-32 mmol/L Blood Urea Nitrogen 41 H 7-18 mg/dL Creatinine 3.5 H 0.5-1.3 mg/dL Glomerular Filtration Rate Calc 19 >90 mL/min Random Glucose 61 L 70-105 mg/dL Total Calcium 8.5 8.5-10.1 mg/dL Phosphorus Level 4.6 2.5-4.9 mg/dL Troponin I High Sensitivity 27 4-75 ng/L Current Medications Medications (Trade) Dose Ordered Sig/Wayne Route PRN Reason Start Time Stop Time Status Last Admin Dose Admin Acetaminophen (TYLenol 325MG TAB) 650 mg Q4H PRN PO MILD PAIN (1-3) 05/12/24 21:00 06/11/24 20:59 Acetaminophen (TYLenol 325MG TAB) 650 mg Q6H PRN PO TEMPERATURE GREATER THAN 101.5 05/12/24 21:00 06/11/24 20:59 05/15/24 22:49 650 MG Aspirin (Aspirin 81mg Ec Tab) 81 mg DAILY PO 05/13/24 09:00 06/12/24 08:59 05/16/24 09:36 81 MG Atorvastatin Calcium (LIPItor 20MG) 20 mg HS PO 05/13/24 21:00 05/14/24 10:21 DC 05/13/24 21:30 20 MG Atorvastatin Calcium (LIPItor 40MG) 40 mg HS PO 05/14/24 21:00 06/13/24 20:59 05/15/24 21:32 40 MG Carvedilol (Coreg 12.5MG) 12.5 mg BID PO 05/14/24 21:00 06/13/24 20:59 05/16/24 09:36 12.5 MG Cefepime HCl (MAXipime 1 GM vial) 1 gm Q24H IVPB 05/13/24 13:00 05/23/24 12:59 05/15/24 14:49 1 GM Clopidogrel Bisulfate (plaVIX 75MG) 75 mg DAILY PO 05/14/24 09:00 06/13/24 08:59 05/16/24 09:36 75 MG Dextrose (D50w) 50 ml AD PRN IV HYPOGLYCEMIA PROTOCOL 05/12/24 21:00 06/11/24 20:59 05/16/24 06:37 50 ML Diphenhydramine HCl (BENAdryl INJ) 25 mg Q6H PRN IV ITCHING 05/13/24 09:00 06/12/24 08:59 Doxycycline Hyclate 250 ml @ 125 mls/hr Q12H IV 05/13/24 09:00 05/23/24 08:59 05/16/24 10:35 125 MLS/HR Famotidine (Pepcid 20mg Tab) 20 mg Q48H PO 05/13/24 09:00 05/16/24 09:02 DC 05/15/24 09:56 20 MG Furosemide (LASix 20MG VIAL) 20 mg Q12H IV 05/13/24 21:00 05/14/24 10:10 DC 05/14/24 08:13 20 MG Glucagon (Glucagon 1mg Kit) 1 mg AD PRN IM HYPOGLYCEMIA PROTOCOL 05/12/24 21:00 06/11/24 20:59 Heparin Sodium (Porcine) (HEParin 5,000 UNIT VIAL) 5,000 unit BID SQ 05/12/24 21:00 05/13/24 03:49 DC 05/12/24 22:15 5,000 UNIT Heparin Sodium (Porcine) (HEParin 5,000 UNIT VIAL) 5,000 unit Q12H SQ 05/16/24 09:00 06/15/24 08:59 05/16/24 09:55 5,000 UNIT Heparin Sodium/ Dextrose 250 ml @ 0 mls/hr PROTOCOL IV 05/13/24 04:00 05/15/24 15:10 DC 05/15/24 11:22 7.7 MLS/HR Hydralazine HCl (APRESOLine 20MG INJ) 10 mg Q6H PRN IV ADMINISTER FOR SBP > 160 05/12/24 21:00 06/11/24 20:59 05/14/24 22:13 10 MG Insulin Human Regular (humuLIN R 100 UNIT/ML 3ML) INSULIN SLIDING SCAL... ACHS SQ 05/12/24 21:00 06/11/24 20:59 Isosorbide Mononitrate (Imdur 60mg Sr) 60 mg DAILY PO 05/14/24 11:00 06/13/24 10:59 05/16/24 09:35 60 MG Magnesium Sulfate 50 ml @ 0 mls/hr PROTOCOL PRN IV OTHER [SEE ORDER COMMENTS] 05/12/24 21:00 06/11/24 20:59 Metoprolol Tartrate (loprESSOR) 25 mg BID PO 05/13/24 21:00 05/14/24 09:51 DC 05/14/24 08:14 25 MG Morphine Sulfate (morPHINE 2MG SYG) 1 mg ONCE STAT IVP 05/15/24 03:19 05/15/24 03:27 DC 05/15/24 03:38 1 MG Morphine Sulfate (morPHINE 2MG SYG) 1 mg Q6H6 PRN IVP SEVERE PAIN (7-10) 05/14/24 11:00 05/21/24 10:59 05/15/24 21:52 1 MG Nitroglycerin (Nitroglycerin 1gm Oint) 0.5 inch Q8H TD 05/12/24 21:00 05/13/24 09:10 DC Nitroglycerin (Nitroglycerin 1gm Oint) 1 inch Q8H TD 05/13/24 09:00 06/12/24 08:59 05/16/24 01:30 1 INCH Nitroglycerin/ Dextrose 250 ml @ 0 mls/hr PROTOCOL IV 05/13/24 04:00 06/12/24 03:59 05/15/24 13:50 60 MLS/HR Ondansetron HCl (zoFRAN 4MG INJ) 4 mg Q6H PRN IV NAUSEA/VOMITING 05/12/24 21:00 06/11/24 20:59 Pantoprazole Sodium (PROTonix 40MG INJ) 40 mg DAILY IVP 05/16/24 09:00 06/15/24 08:59 05/16/24 09:35 40 MG Potassium Chloride 100 ml @ 100 mls/hr AD PRN IV POTASSIUM PROTOCOL 05/12/24 21:00 06/11/24 20:59 Potassium Chloride (K-Dur 10meq Sr Tab) 10 meq AD PRN PO POTASSIUM PROTOCOL 05/14/24 09:30 06/11/24 20:59 Potassium Chloride (K-Dur/Klor-Con 20meq) 10 meq AD PRN PO POTASSIUM PROTOCOL 05/12/24 21:00 05/14/24 09:03 DC Potassium Chloride (KCl 10% Elixir 20meq/15ml) 10 meq AD PRN PO POTASSIUM PROTOCOL 05/12/24 21:00 06/11/24 20:59 Tamsulosin HCl (FloMAX) 0.4 mg DAILY PO 05/15/24 09:00 06/14/24 08:59 05/16/24 09:36 0.4 MG DIAGNOSTICS / RADIOLOGY: [ ] ASSESSMENT: Unstable angina rule out ACS POA Rule out PE Rule out DVT Acute respiratory failure 2/2 Acute on chronic diastolic HF/suspected acute pneumonitis, POA Uncontrolled hypertension POA Uncontrolled diabetes POA hemoglobin A1c 8 Acute kidney injury on chronic kidney disease POA Acute anemia on CKD POA Coronary artery disease with cardiac stent x3 POA Hyperlipidemia POA History of Left BKA POA History of back surgery POA PLAN: Currently admitted under ICU Continue heart healthy and non dialysis diet GI prophylaxis with famotidine 2D echo: LVEF 45-50%, stage II diastolic dysfunction Following loan broker's recommendations, Dr. Michel -primary fixed diffusion defect, low risk stress test Continue nitroglycerin And heparin drips Continue to monitor blood pressures Continue dual antiplatelet therapy with aspirin and Plavix Continue statin therapy with atorvastatin CT chest: Bilateral pleural effusions with ground-glass opacities concerning for multifocal pneumonia Follow up with Pulmonary/critical Care Medicine Follow up With the Infectious Disease -Continue cefepime and doxycycline -close follow up Continue strict intake and output, daily weights Fluid restriction 1.2 L/daily Monitor and replace electrolytes per hospital protocol Avoid nephrotoxic agents, renally dose medications Trend a.m. BMP Follow up with Nephrology -no renal replacement therapy indicated at this time Continue glucometer checks a.c. and HS Continue SSI Continue hypoglycemic protocol Trend a.m. CBC DVT prophylaxis- Continue heparin Full CODE STATUS Case discussed with the patient and nurse at bedside Time of care 35 minutes NATIVIDAD CHAN IV, MD May 16, 2024 13:58
--- NOTE | 2024-05-16 14:25 | NUR ---
SONG CATH INSERTED
--- NOTE | 2024-05-16 15:22 | NUR ---
Dr. Michel communication Spoke with Dr. Michel in regards to plan of care for patient. Per MD, Gifty scan was negative, patient may start on Ranexa 1000 mg BID PO and Isosorbide 60 mg PO QD, and patient may go home from cardiology standpoint. Dr. Mello made aware of Dental Surgery Doctor standpoint.
--- NOTE | 2024-05-16 15:45 | NUR ---
DR MORAN AT BEDSIDE- SPEAKS WITH PT- SONG CATH REMOVED PER MD ORDERS
--- NOTE | 2024-05-16 16:19 | NUR ---
DR CHAN NOTIFIED THAT PT IS CLEARED TO DC HOME BY CARDIOLOGY
[2024-05-16] MEDS ORDERED: DOXY100C5 PO (16:40)
[2024-05-16] MEDS ORDERED: Isosorbide Mono 60MG Sr Tab PO (16:40)
[2024-05-16] MEDS ORDERED: RANO500T2 PO (16:40)
--- NOTE | 2024-05-16 16:42 | DS ---
Discharge Summary Hospital Course Summary: 58-year-old male with past medical history of essential hypertension, diabetes mellitus type 2, CAD with cardiac stent x3, hyperlipidemia, CHF, anemia of chronic disease and CKD with a admitted yesterday evening in to the PCCU with diagnosis of unstable angina, acute diastolic heart failure. Patient originally presented with chest pain and shortness of breath with and without exertion, orthopnea for approximately one week. Nephrology and cardiology teams consulted. Patient was placed on IV antibiotics empirically as well as heparin and nitro drip. Patient underwent cardiac stress testing was cleared for discharge. Patient should follow-up with PCP and Cardiology. Medications as per med rec Indexer(s): Cardiology: 05/16/2024 Stress test today was negative, troponins were repeatedly negative on multiple checks. Can be discharged home on isosorbide and Ranexa from a cardiac standpoint. Will follow-up in the office. Seen and examined 05/16/2024 at around 1800. Assessment/Plan: ASSESSMENT: Unstable angina rule out ACS POA Rule out PE Rule out DVT Acute respiratory failure 2/2 Acute on chronic diastolic HF/suspected acute pneumonitis, POA Uncontrolled hypertension POA Uncontrolled diabetes POA hemoglobin A1c 8 Acute kidney injury on chronic kidney disease POA Acute anemia on CKD POA Coronary artery disease with cardiac stent x3 POA Hyperlipidemia POA History of Left BKA POA History of back surgery POA PLAN: Currently admitted under ICU Continue heart healthy and non dialysis diet GI prophylaxis with famotidine 2D echo: LVEF 45-50%, stage II diastolic dysfunction Following development mechanic's recommendations, Dr. Michel -primary fixed diffusion defect, low risk stress test Continue nitroglycerin And heparin drips Continue to monitor blood pressures Continue dual antiplatelet therapy with aspirin and Plavix Continue statin therapy with atorvastatin CT chest: Bilateral pleural effusions with ground-glass opacities concerning for multifocal pneumonia Follow up with Pulmonary/critical Care Medicine Follow up With the Infectious Disease -Continue cefepime and doxycycline -close follow up Continue strict intake and output, daily weights Fluid restriction 1.2 L/daily Monitor and replace electrolytes per hospital protocol Avoid nephrotoxic agents, renally dose medications Trend a.m. BMP Follow up with Nephrology -no renal replacement therapy indicated at this time Continue glucometer checks a.c. and HS Continue SSI Continue hypoglycemic protocol Trend a.m. CBC DVT prophylaxis- Continue heparin Full CODE STATUS Case discussed with the patient and nurse at bedside Time of care 35 minutes Home Medications: Active Scripts Doxycycline Hyclate (Doxycycline Hyclate) 100 Mg Capsule, 100 MG PO BID for 3 Days, #3 CAP Prov:NATIVIDAD CHAN IV, MD 05/16/24 Ranolazine (RANEXA) 500 Mg Tab.er.12h, 1000 MG PO BID for 30 Days, #60 TAB Prov:NATIVIDAD CHAN IV, MD 05/16/24 [Isosorbide Rhea 60MG Sr Tab] 60 MG TAB.ER.24H No Conflict Check, 60 MG PO DAILY for 30 Days, #30 TAB 0 Refills Prov:NATIVIDAD CHAN IV, MD 05/16/24 Clindamycin HCl (Clindamycin HCl) 300 Mg Capsule, 1 CAP PO QID for 10 Days, #40 CAP 0 Refills Prov:NADIA PICKERING BUTADIENE COMPRESSOR OPERATOR 05/26/23 Reported Medications Tamsulosin HCl (Flomax) 0.4 Mg Cap.er.24h, 1 CAP PO DAILY for 30 Days, #30 CAP 0 Refills 05/13/24 Clopidogrel Bisulfate (Clopidogrel) 75 Mg Tablet, 1 TAB PO DAILY for 30 Days, #30 TAB 0 Refills 05/13/24 Carvedilol (Carvedilol) 12.5 Mg Tablet, 1 TAB PO BID for 30 Days, #60 TAB 0 Refills 05/13/24 Atorvastatin Calcium (LIPITOR) 80 Mg Tablet, 1 TAB PO DAILY for 30 Days, #30 TAB 0 Refills 05/13/24 Aspirin (ASPIRIN 81MG CHEW TAB) 81 Mg Tab.chew, 1 TAB PO DAILY for 30 Days, #30 TAB 0 Refills 05/13/24 Nitroglycerin (Nitroglycerin) 0.4 Mg Tab.subl, 1 TAB SL AD for chest pain, #25 TAB 0 Refills 1st sign of attack; may repeat every 5 mins; if pain persists after 3 in 15 min, medical attention is recommended 05/13/24 Discontinued Reported Medications Sodium Bicarbonate (Sodium Bicarbonate) 650 Mg Tablet, 1 TAB PO TID for 30 Days, #60 TAB 0 Refills 05/13/24 Time spent arranging discharge: 31-60 minutes NATIVIDAD CHAN IV, MD May 16, 2024 16:42
[2024-05-16] MEDS: RANOLAZINE 500 MG TAB.SR.12H PO SCH (17:25)
--- NOTE | 2024-05-16 18:21 | PN ---
CARDIOLOGY Reason for consult: Chest pain HPI/story at presentation: This is a pleasant 58-year-old male with past medical history as per present with complaints of chest discomfort to the emergency room for his known history of coronary disease status post PCI in 20 22-3 vessels. EKG with baseline ischemia changes Subjective: 05/13/2024 no complaints 05/14/2024 no complaints on NTG drip 05/15/2024 no complaints 05/16/2024 no complaints Past medical history: See below Allergies, Meds See chart Review of systems Review of Systems Constitutional: Negative for chills and fever. HENT: Negative for ear discharge and ear pain. Eyes: Negative for photophobia and discharge. Respiratory: Negative for cough, sputum production and stridor. Cardiovascular: Negative for chest pain and palpitations. Gastrointestinal: Negative for diarrhea and vomiting. Genitourinary: Negative for frequency. Musculoskeletal: Negative for myalgias. Skin: Negative for rash. Neurological: Negative for focal weakness and seizures. Endo/Heme/Allergies: Negative for polydipsia. Psychiatric/Behavioral: Negative for hallucinations. Vitals see chart PHYSICAL EXAMINATION GENERAL: The patient is alert and oriented*3 HEENT: Nonicteric sclerae, non traumatic HEART: Regular rate and rhythm with no murmurs LUNGS: Clear to auscultation bilaterally ABDOMEN: No acute issues, non tender GENITAL, RECTAL: deferred SKIN: No rash NEUROLOGIC: NFND EXTREMITIES: No edema ASSESSMENT CHEST PAIN, CORONARY ARTERY DISEASE Negative troponins, EKG with ST-T wave changes at baseline No evidence of ST elevation myocardial infarction with stable EKG changes, 05/13/2024 On heparin, nitroglycerin, On Plavix beta-don statin aspirin CHRONIC KIDNEY DISEASE History of, creatinine greater than 3 PERIPHERAL VASCULAR DISEASE S/p left BKA HYPERTENSION, DIABETES, HYPERLIPIDEMIA CORE MEASURES good meds 04/2024 OTHER MEDICAL PROBLEMS Prior history of back surgery PLAN 05/13/[address] elevation myocardial infarction on EKG. Does not have ischemic changes with T wave inversions in the lateral leads and minimal ST segment changes in the anterior leads. For now, agree with heparin and nitroglycerin. Wean off nitroglycerin if pain is better, also received dose of morphine this morning. Given renal dysfunction, would risk stratify if enzymes remain negative with a stress test prior to considering cardiac catheterization if indicated. 05/14/2024 Renal function still elevated, will try to wean off nitroglycerin drip as unable to proceed with stress testing while on nitroglycerin. Not a good candidate for cardiac catheterization given renal injury risk and risk of dialysis which at this time, patient is hesitant about. Will try to get off nitroglycerin and still consider potentially stress testing to rule stratify prior to considering contrast. Start isosorbide to potentially help come off nitroglycerin drip. Volume status is still acceptable. EF of 45 to 50% on echocardiogram. Currently on Nitropaste isosorbide Plavix beta-don statin aspirin. If he comes off nitroglycerin, would consider stress testing tomorrow. Seen and examined at around 10 AM. 05/15/2024 Continues have issues with atypical chest pain, sharp features, likely noncardiac but persistent pain, unable to get stress testing completed because of problems with the scanner. We do not do dobutamine studies or stress echoes here at [facility]. Attempted to transfer to [facility] but they are on diversion at this time. Underlying chronic kidney disease. Can wean off nitro drip as this is not helping Potentially may consider transferring to [facility] for stress test and then back. Trying to coordinate. Symptomatic patient reports well. Troponins have all been negative. Seen and examined 05/15/2024 around 11:30 AM. 05/16/2024 Stress test today was negative, troponins were repeatedly negative on multiple checks. Can be discharged home on isosorbide and Ranexa from a cardiac standpoint. Will follow-up in the office. Seen and examined 05/16/2024 at around 1800. ATTESTATION I was involved substantially in the care of this patient Number and complexity of problems addressed: 1 acute illness with systemic features Amount and or complexity of data Review of prior external note(s) from each unique source: 2+ Ordering of each unique test : 0 Review of the result(s) of each unique test: 2+ Assessment requiring an independent historian(s): No Independent interpretation of test performed by another MD/QHCP/appropriate source (not separately reported) : No Discussion of management or test interpretation with external MD/QHCP/appropriate source (not separately reported) : No Risk status (cardiac, billing related): Moderate Vitals/Labs Vital Signs Date Time Temp Pulse Resp B/P (MAP) Pulse Ox O2 Delivery O2 Flow Rate FiO2 05/16/24 12:00 78 19 150/76 97 05/16/24 09:00 98.8 05/16/24 08:00 Room Air* 0 21 Laboratory Tests 05/16/24 03:59 Medications Current Medications Furosemide 40 mg ONCE ONCE IV Last administered on 05/12/24at 20:42; Start 05/12/24 at 20:00; Stop 05/12/24 at 20:01; Status DC Nitroglycerin 1 inch ONCE ONCE TD Last administered on 05/12/24at 20:42; Start 05/12/24 at 20:30; Stop 05/12/24 at 20:33; Status DC Morphine Sulfate 2 mg ONCE ONCE IVP Last administered on 05/12/24at 20:42; Start 05/12/24 at 20:30; Stop 05/12/24 at 20:31; Status DC Labetalol HCl 10 mg ONCE ONCE IV Last administered on 05/12/24at 22:21; Start 05/12/24 at 20:30; Stop 05/12/24 at 20:31; Status DC Acetaminophen 650 mg Q6H PRN PO Last administered on 05/15/24at 22:49; Start 05/12/24 at 21:00; Stop 06/11/24 at 20:59 Acetaminophen 650 mg Q4H PRN PO; Start 05/12/24 at 21:00; Stop 06/11/24 at 20:59 Ondansetron HCl 4 mg Q6H PRN IV; Start 05/12/24 at 21:00; Stop 06/11/24 at 20:59 Heparin Sodium (Porcine) 5,000 unit BID SQ Last administered on 05/12/24at 22:15; Start 05/12/24 at 21:00; Stop 05/13/24 at 03:49; Status DC Famotidine 20 mg Q48H PO Last administered on 05/15/24at 09:56; Start 05/13/24 at 09:00; Stop 05/16/24 at 09:02; Status DC Nitroglycerin 0.5 inch Q8H TD; Start 05/12/24 at 21:00; Stop 05/13/24 at 09:10; Status DC Insulin Human Regular INSULIN SLIDING SCAL... ACHS SQ; Start 05/12/24 at 21:00; Stop 06/11/24 at 20:59 Dextrose 50 ml AD PRN IV Last administered on 05/16/24at 06:37; Start 05/12/24 at 21:00; Stop 06/11/24 at 20:59 Glucagon 1 mg AD PRN IM; Start 05/12/24 at 21:00; Stop 06/11/24 at 20:59 Magnesium Sulfate 50 ml @ 0 mls/hr PROTOCOL PRN IV; Start 05/12/24 at 21:00; Stop 06/11/24 at 20:59 Potassium Chloride 100 ml @ 100 mls/hr AD PRN IV; Start 05/12/24 at 21:00; Stop 06/11/24 at 20:59 Potassium Chloride 10 meq AD PRN PO; Start 05/12/24 at 21:00; Stop 06/11/24 at 20:59 Potassium Chloride 10 meq AD PRN PO; Start 05/12/24 at 21:00; Stop 05/14/24 at 09:03; Status DC Hydralazine HCl 10 mg Q6H PRN IV Last administered on 05/14/24at 22:13; Start 05/12/24 at 21:00; Stop 06/11/24 at 20:59 Aspirin 81 mg DAILY PO Last administered on 05/16/24at 09:36; Start 05/13/24 at 09:00; Stop 06/12/24 at 08:59 Hydromorphone HCl 0.2 mg ONCE ONCE IVP Last administered on 05/12/24at 23:46; Start 05/12/24 at 23:30; Stop 05/12/24 at 23:31; Status DC Heparin Sodium/ Dextrose 250 ml @ 0 mls/hr PROTOCOL IV Last administered on 05/15/24at 11:22; Start 05/13/24 at 04:00; Stop 05/15/24 at 15:10; Status DC Nitroglycerin/ Dextrose 250 ml @ 0 mls/hr PROTOCOL IV Last administered on 05/15/24at 13:50; Start 05/13/24 at 04:00; Stop 06/12/24 at 03:59 Heparin Sodium (Porcine) 5,000 unit ONCE ONCE IV Last administered on 05/13/24at 04:11; Start 05/13/24 at 04:00; Stop 05/13/24 at 04:06; Status DC Clopidogrel Bisulfate 300 mg ONCE ONCE PO Last administered on 05/13/24at 04:38; Start 05/13/24 at 05:00; Stop 05/13/24 at 05:01; Status DC Morphine Sulfate 1 mg ONCE ONCE IVP Last administered on 05/13/24at 06:46; Start 05/13/24 at 06:30; Stop 05/13/24 at 06:31; Status DC Atorvastatin Calcium 20 mg HS PO Last administered on 05/13/24at 21:30; Start 05/13/24 at 21:00; Stop 05/14/24 at 10:21; Status DC Cefepime HCl 1 gm Q24H IVPB Last administered on 05/16/24at 13:33; Start 05/13/24 at 13:00; Stop 05/23/24 at 12:59 Doxycycline Hyclate 250 ml @ 125 mls/hr Q12H IV Last administered on 05/16/24at 10:35; Start 05/13/24 at 09:00; Stop 05/23/24 at 08:59 Diphenhydramine HCl 25 mg Q6H PRN IV; Start 05/13/24 at 09:00; Stop 06/12/24 at 08:59 Clopidogrel Bisulfate 75 mg DAILY PO Last administered on 05/16/24at 09:36; Start 05/14/24 at 09:00; Stop 06/13/24 at 08:59 Nitroglycerin 1 inch Q8H TD Last administered on 05/16/24at 01:30; Start 05/13/24 at 09:00; Stop 06/12/24 at 08:59 Sodium Chloride 4 ml STK-MED ONCE IH; Start 05/13/24 at 09:37; Stop 05/13/24 at 09:38; Status DC Iron Sucrose 300 mg/Sodium Chloride 250 ml @ 83 mls/hr ONCE ONCE IV Last administered on 05/13/24at 21:30; Start 05/13/24 at 21:00; Stop 05/14/24 at 00:00; Status DC Epoetin Simon-epbx 10,000 unit ONCE ONCE SQ Last administered on 05/13/24at 16:17; Start 05/13/24 at 16:00; Stop 05/13/24 at 16:01; Status DC Metoprolol Tartrate 25 mg BID PO Last administered on 05/14/24at 08:14; Start 05/13/24 at 21:00; Stop 05/14/24 at 09:51; Status DC Metoprolol Tartrate 25 mg ONCE ONCE PO Last administered on 05/13/24at 12:22; Start 05/13/24 at 12:00; Stop 05/13/24 at 12:01; Status DC Furosemide 20 mg Q12H IV Last administered on 05/14/24at 08:13; Start 05/13/24 at 21:00; Stop 05/14/24 at 10:10; Status DC Potassium Chloride 10 meq AD PRN PO; Start 05/14/24 at 09:30; Stop 06/11/24 at 20:59 Carvedilol 12.5 mg BID PO Last administered on 05/16/24at 09:36; Start 05/14/24 at 21:00; Stop 06/13/24 at 20:59 Tamsulosin HCl 0.4 mg DAILY PO Last administered on 05/16/24at 09:36; Start 05/15/24 at 09:00; Stop 06/14/24 at 08:59 Atorvastatin Calcium 40 mg HS PO Last administered on 05/15/24at 21:32; Start 05/14/24 at 21:00; Stop 06/13/24 at 20:59 Isosorbide Mononitrate 60 mg DAILY PO Last administered on 05/16/24at 09:35; Start 05/14/24 at 11:00; Stop 06/13/24 at 10:59 Morphine Sulfate 1 mg Q6H6 PRN IVP Last administered on 05/16/24at 14:52; Start 05/14/24 at 11:00; Stop 05/21/24 at 10:59 Tamsulosin HCl 0.4 mg ONCE ONCE PO Last administered on 05/14/24at 11:49; Start 05/14/24 at 11:00; Stop 05/14/24 at 11:04; Status DC Morphine Sulfate 1 mg ONCE STAT IVP Last administered on 05/15/24at 03:38; Start 05/15/24 at 03:19; Stop 05/15/24 at 03:27; Status DC Tamsulosin HCl 0.4 mg ONCE ONCE PO Last administered on 05/15/24at 21:32; Start 05/15/24 at 20:30; Stop 05/15/24 at 20:33; Status DC Regadenoson 0.4 mg STK-MED ONCE IVP; Start 05/16/24 at 08:15; Stop 05/16/24 at 08:15; Status DC Heparin Sodium (Porcine) 5,000 unit Q12H SQ Last administered on 05/16/24at 09:55; Start 05/16/24 at 09:00; Stop 06/15/24 at 08:59 Pantoprazole Sodium 40 mg DAILY IVP Last administered on 05/16/24at 09:35; Start 05/16/24 at 09:00; Stop 06/15/24 at 08:59 Ranolazine 1,000 mg BID PO; Start 05/16/24 at 21:00; Stop 05/16/24 at 16:43; Status DC Isosorbide Mononitrate 60 mg DAILY PO; Start 05/17/24 at 09:00; Stop 06/16/24 at 08:59 Ranolazine 1,000 mg BID PO Last administered on 05/16/24at 17:25; Start 05/16/24 at 17:00; Stop 06/15/24 at 16:59 JOVANNY PITTS MD May 16, 2024 18:20
--- NOTE | 2024-05-16 18:57 | NUR ---
PT DISCHARGED- PRINTED AND VERBAL DISCHARGE INSTRUCTIONS GIVEN TO PT AND . VERBALIZE UNDERSTANDING. IV TO RT HAND , LT HAND, LT FOREARM REMOVED INTACT. TO CAR VIA WHEELCHAIR. NO ACUTE DISTRESS NOTEXD. DR TOLU RIOS TO PT PRIOR TO DISCHARGE INFORMED HIM OF STRESS TEST RESULTS
[2024-05-16] MEDS ORDERED: RANOLAZINE 500 MG TAB.SR.12H PO SCH (21:00)
--- NOTE | 2024-05-16 23:21 | PN ---
INFECTIOUS DISEASE FOLLOWUP NOTE DATE OF SERVICE: 05/16/2024 SUBJECTIVE: The patient is seen and examined at bedside. Remained in the ICU. No fever, no chills. ____. Tolerating orally. ____ came back negative. No evidence of ischemia. Renal function also is improving. Tolerating antibiotic. PHYSICAL EXAMINATION: VITAL SIGNS: Temperature 97.4. EYES: No icterus. Pupils equal and reactive. HENT: No oral thrush seen. Moist oral mucosa. NECK: Supple. No JVD or thyromegaly. LUNGS: Good air entry. CARDIOVASCULAR: S1, S2 regular. No murmur heard. ABDOMEN: Full, soft. Bowel sounds present. CENTRAL NERVOUS SYSTEM: The patient is awake, alert, oriented x 3. No focal deficits. SKIN: No rashes, no itchiness. LYMPHATIC: No peripheral lymphadenopathy. BACK: No deformity, no pressure ulcer. ASSESSMENT: A 58-year-old male with multiple problems which include: * Pneumonia. * Hypoxic respiratory failure. * Congestive heart failure. * Hypertension. * [id number] renal failure. * Diabetes mellitus. PLAN: * Continue cefepime. * Continue doxycycline. * Continue pain management. * Continue nutritional support. * Monitor electrolytes. * Continue antiemetics. * Continue antiplatelet. TID: [id number] RECEIPT: [id number]
[2024-05-17] MEDS ORDERED: ISOSORBIDE MONO 60MG SR TAB PO SCH (09:00)
== END 2024-05-16 18:57 | disposition home or self-care (01) | DRG 177 ==
LOC: EDH 17:25 → EDHIP 20:47 → 2BH 05-13 20:20
PROVIDERS: ADMIT Internal Medicine; ATTEND Internal Medicine
PROC: 4A02XM4 Measurement of Cardiac Total Activity, External Approach (ICD-10-PCS; principal; 2024-05-16)
PROC: 3E073KZ Introduction of Other Diagnostic Substance into Coronary Artery, Percutaneous Approach (ICD-10-PCS; 2024-05-16)
DX: J15.69 Pneumonia due to other Gram-negative bacteria (principal); I50.33 Acute on chronic diastolic (congestive) heart failure; J96.01 Acute respiratory failure with hypoxia; I13.0 Hypertensive heart and chronic kidney disease with heart failure and stage 1 through stage 4 chronic kidney disease, or unspecified chronic kidney disease; N17.9 Acute kidney failure, unspecified; I25.110 Atherosclerotic heart disease of native coronary artery with unstable angina pectoris; J15.9 Unspecified bacterial pneumonia; E11.65 Type 2 diabetes mellitus with hyperglycemia; E78.00 Pure hypercholesterolemia, unspecified; N18.30 Chronic kidney disease, stage 3 unspecified; E11.22 Type 2 diabetes mellitus with diabetic chronic kidney disease; E11.51 Type 2 diabetes mellitus with diabetic peripheral angiopathy without gangrene; D63.1 Anemia in chronic kidney disease; Z83.3 Family history of diabetes mellitus; Z95.5 Presence of coronary angioplasty implant and graft; I25.2 Old myocardial infarction; Z89.512 Acquired absence of left leg below knee; Z88.0 Allergy status to penicillin; Z79.899 Other long term (current) drug therapy
CPT/HCPCS: 36415; 71045; 71250; 76770; 78452; 80048; 80053; 80061; 80076; 80305; 81001; 82306; 82550; 82570; 82607; 82746; 82948; 83036; 83540; 83550; 83605; 83735; 83880; 83970; 84100; 84145; 84156; 84443; 84484; 85025; 85378; 85610; 85730; 87071; 87205; 87426; 87804; 93005; 93017; 93306; 93356; 93970; 99285; A4357; A9500; G0378; J0360; J0692; J1171; J1644; J1756; J1940; J2270; J2470; J2785; J3490; J7050; J7070; Q5106